=== PATIENT | female | born 1930 | race Caucasian/White ===

== ENCOUNTER 2016-09-20 08:59 | Outpatient (RCR) | payer MEDICARE ==
--- OUTSIDE RECORDS SUMMARY | 2016-06-28 09:57 | XMS REPORT | Continuity of Care Document ---
Author Author [facility] Organization [facility] Address Unknown Phone Unavailable Care Team Providers Care Senior Mainframe Programmer Analyst Name Role Phone JACOBY SCHWAB MD PCP Insurance Providers Payer Name Policy Number Subscriber Name Relationship [employer] Medicare [id number] Margaret Morgan Self / Same As Patient Blue Cross [facility] Supp [id number] Margaret Morgan Self / Same As Patient Problems No known problems or medical conditions. Medications No known medications. Social History Social History Problem Response Recorded Date/Time Recent Foreign Travel N [place] 10/27/2014 9:38am Hospital Discharge Instructions No hospital discharge instructions. Plan of Care No plan of care. Functional Status No functional status results. Allergies, Adverse Reactions, Alerts Allergen Type Severity Reaction Status Last Updated Penicillins ([id number]) Allergy Unknown Active 10/06/08 Sulfa (Sulfonamide Antibiotics) ([id number]) Allergy Unknown Active 06/06 Clindamycin Allergy Unknown Active 10/06/08 Immunizations No immunization records. Vital Signs Acute Vital Signs Vital Response Date/Time Height 5 ft 1 in Weight 150 lb Body Mass Index 28.3 kg/m^2 Results Laboratory Results Test Name Result Units Flags Reference Collection Date/Time Result Date/ Time Comments White Blood Count 6.4 10^3/uL 4.3-11.0 10/27/2014 9:50am 10/27/2014 9: 55am Red Blood Count 4.42 10^6/uL 4.35-5.85 10/27/2014 9:50am 10/27/2014 9: 55am Hemoglobin 13.3 G/DL 11.5-16.0 10/27/2014 9:50am 10/27/2014 9:55am Hematocrit 40 % 35-52 10/27/2014 9:50am 10/27/2014 9:55am Mean Corpuscular Volume 90 FL 80-99 10/27/2014 9:50am 10/27/2014 9: 55am Mean Corpuscular Hemoglobin 30 PG 25-34 10/27/2014 9:50am 10/27/2014 9: 55am Mean Corpuscular Hemoglobin Concent 33 G/DL 32-36 10/27/2014 9:50am 05/2015 9:55am Red Cell Distribution Width 16.4 % H 10.0-14.5 10/27/2014 9:50am 2014 9:55am Platelet Count 233 10^3/uL 130-400 10/27/2014 9:50am 10/27/2014 9:55am Mean Platelet Volume 12.3 FL H 7.4-10.4 10/27/2014 9:50am 10/27/2014 9: 55am Neutrophils (%) (Auto) 52 % 42-75 10/27/2014 9:50am 10/27/2014 9:55am Lymphocytes (%) (Auto) 32 % 12-44 10/27/2014 9:50am 10/27/2014 9:55am Monocytes (%) (Auto) 12 % 0-12 10/27/2014 9:50am 10/27/2014 9:55am Eosinophils (%) (Auto) 3 % 0-10 10/27/2014 9:50am 10/27/2014 9:55am Basophils (%) (Auto) 2 % 0-10 10/27/2014 9:50am 10/27/2014 9:55am Neutrophils # (Auto) 3.3 X 10^3 1.8-7.8 10/27/2014 9:50am 10/27/2014 9: 55am Lymphocytes # (Auto) 2.0 X 10^3 1.0-4.0 10/27/2014 9:50am 10/27/2014 9: 55am Monocytes # (Auto) 0.8 X 10^3 0.0-1.0 10/27/2014 9:50am 10/27/2014 9: 55am Eosinophils # (Auto) 0.2 10^3/uL 0.0-0.3 10/27/2014 9:50am 10/27/2014 9 :55am Basophils # (Auto) 0.1 10^3/uL 0.0-0.1 10/27/2014 9:50am 10/27/2014 9: 55am Sodium Level 141 MMOL/L 135-145 10/27/2014 9:45am 10/27/2014 10:23am Potassium Level 4.1 MMOL/L 3.6-5.0 10/27/2014 9:45am 10/27/2014 10: 23am Chloride Level 111 MMOL/L H 98-107 10/27/2014 9:45am 10/27/2014 10:23am Carbon Dioxide Level 20 MMOL/L L 21-32 10/27/2014 9:45am 10/27/2014 10: 23am Blood Urea Nitrogen 19 MG/DL H 7-18 10/27/2014 9:45am 10/27/2014 10:23am Creatinine 0.81 MG/DL 0.60-1.30 10/27/2014 9:45am 10/27/2014 10:23am BUN/Creatinine Ratio 23 10/27/2014 9:45am 10/27/2014 10:23am Estimat Glomerular Filtration Rate > 60 10/27/2014 9:45am 2014 10:23am GFR INTERPRETIVE DATA UNITS FOR ESTIMATED GFR (eGFR): mL/min/1.73 M2 REFERENCE RANGE FOR ESTIMATED GFR (eGFR) eGFR NORMAL eGFR >60 MODERATELY DECREASED eGFR 30-59 SEVERLY DECREASED eGFR 15-29 KIDNEY FAILURE <15 (OR DIALYSIS) Glucose Level 94 MG/DL 70-105 10/27/2014 9:45am 10/27/2014 10:23am Calcium Level 9.7 MG/DL 8.5-10.1 10/27/2014 9:45am 10/27/2014 10:23am Total Bilirubin 1.2 MG/DL H 0.1-1.0 10/27/2014 9:45am 10/27/2014 10:23am Alkaline Phosphatase 85 U/L 40-136 10/27/2014 9:45am 10/27/2014 10: 23am Aspartate Amino Transf (AST/SGOT) 28 U/L 5-34 10/27/2014 9:45am 2014 10:23am Alanine Aminotransferase (ALT/SGPT) 18 U/L 0-55 10/27/2014 9:45am 10/27 10:23am Lactate Dehydrogenase 237 U/L H 125-220 10/27/2014 9:45am 10/27/2014 10: 23am Total Protein 6.7 G/DL 6.4-8.2 10/27/2014 9:45am 10/27/2014 10:23am Albumin 4.2 G/DL 3.2-4.5 10/27/2014 9:45am 10/27/2014 10:23am Immunoglobulin G 580 L MG/DL 672-1680 10/27/2014 9:45am 2014 6: 29am Immunoglobulin A 29 L MG/DL 71-263 10/27/2014 9:45am 2014 6: 29am Immunoglobulin M 15 L MG/DL 47-209 10/27/2014 9:45am 2014 6: 29am Procedures No known history of procedures. Encounters Encounter Location Date/Time Discharged Recurring Via [facility] 12/02/14 9:23am
[2016-06-28 10:13] LABS: BASOPHILS # (AUTO) 0.1 10^3/uL (0.0-0.1); BASOPHILS % (AUTO) 1 % (0-10); EOSINOPHILS # (AUTO) 0.3 10^3/uL (0.0-0.3); EOSINOPHILS % (AUTO) 4 % (0-10); LYMPHOCYTES # (AUTO) 2.9 X 10^3 (1.0-4.0); LYMPHOCYTES % (AUTO) 36 % (12-44); MEAN CORPUSCULAR HEMOGLOBIN 30 PG (25-34); MEAN CORPUSCULAR HGB CONC 33 G/DL (32-36); MEAN CORPUSCULAR VOLUME 89 FL (80-99); MEAN PLATELET VOLUME 12.5 FL (7.4-10.4); MONOCYTES # (AUTO) 1.3 X 10^3 (0.0-1.0); MONOCYTES % (AUTO) 17 % (0-12); NEUTROPHILS # (AUTO) 3.4 X 10^3 (1.8-7.8); NEUTROPHILS % (AUTO) 43 % (42-75); PLATELET COUNT 266 10^3/uL (130-400); RED BLOOD COUNT 4.35 10^6/uL (4.35-5.85); RED CELL DISTRIBUTION WIDTH 16.7 % (10.0-14.5)
[2016-06-28 10:41] LABS: ALANINE AMINOTRANSFERASE 24 U/L (0-55); ALBUMIN 4.2 G/DL (3.2-4.5); ANION GAP 12 MMOL/L (5-14); ASPARTATE AMINO TRANSFERASE 31 U/L (5-34); BILIRUBIN,TOTAL 1.1 MG/DL (0.1-1.0); BLOOD UREA NITROGEN 19 MG/DL (7-18); BUN/CREATININE RATIO 24; CALCIUM 9.5 MG/DL (8.5-10.1); CARBON DIOXIDE 18 MMOL/L (21-32); CHLORIDE 113 MMOL/L (98-107); CREATININE SERUM 0.78 MG/DL (0.60-1.30); GFR ESTIMATED > 60; GLUCOSE 79 MG/DL (70-105); LACTATE DEHYDROGENASE 231 U/L (125-220); SODIUM 143 MMOL/L (135-145); TOTAL PROTEIN 6.3 G/DL (6.4-8.2)
[2016-06-29 03:38] LABS: IMMUNOGLOBULIN IGA 21 mg/dL (71-263); IMMUNOGLOBULIN IGG 587 mg/dL (672-1680)
[2016-06-29 08:11] LABS: IMMUNOGLOBULIN IGM 15 mg/dL (47-209)
[2016-07-26 09:33] LABS: BASOPHILS # (AUTO) 0.1 10^3/uL (0.0-0.1); BASOPHILS % (AUTO) 1 % (0-10); EOSINOPHILS # (AUTO) 0.4 10^3/uL (0.0-0.3); EOSINOPHILS % (AUTO) 6 % (0-10); LYMPHOCYTES # (AUTO) 2.4 X 10^3 (1.0-4.0); LYMPHOCYTES % (AUTO) 31 % (12-44); MEAN CORPUSCULAR HEMOGLOBIN 30 PG (25-34); MEAN CORPUSCULAR HGB CONC 34 G/DL (32-36); MEAN CORPUSCULAR VOLUME 89 FL (80-99); MEAN PLATELET VOLUME 11.8 FL (7.4-10.4); MONOCYTES # (AUTO) 1.4 X 10^3 (0.0-1.0); MONOCYTES % (AUTO) 18 % (0-12); NEUTROPHILS # (AUTO) 3.4 X 10^3 (1.8-7.8); NEUTROPHILS % (AUTO) 45 % (42-75); PLATELET COUNT 259 10^3/uL (130-400); RED BLOOD COUNT 4.58 10^6/uL (4.35-5.85); RED CELL DISTRIBUTION WIDTH 16.6 % (10.0-14.5); WHITE BLOOD COUNT 7.6 10^3/uL (4.3-11.0)
[2016-07-26 09:59] LABS: ALANINE AMINOTRANSFERASE 31 U/L (0-55); ALBUMIN 4.5 G/DL (3.2-4.5); ANION GAP 10 MMOL/L (5-14); ASPARTATE AMINO TRANSFERASE 37 U/L (5-34); BILIRUBIN,TOTAL 1.1 MG/DL (0.1-1.0); BLOOD UREA NITROGEN 18 MG/DL (7-18); BUN/CREATININE RATIO 22; CALCIUM 9.4 MG/DL (8.5-10.1); CARBON DIOXIDE 21 MMOL/L (21-32); CHLORIDE 112 MMOL/L (98-107); CREATININE SERUM 0.83 MG/DL (0.60-1.30); GFR ESTIMATED > 60; GLUCOSE 69 MG/DL (70-105); POTASSIUM 3.9 MMOL/L (3.6-5.0); SODIUM 143 MMOL/L (135-145); TOTAL PROTEIN 6.6 G/DL (6.4-8.2)
[2016-07-27 06:06] LABS: IMMUNOGLOBULIN IGA 22 mg/dL (71-263); IMMUNOGLOBULIN IGG 517 mg/dL (672-1680)
[2016-07-27 08:37] LABS: IMMUNOGLOBULIN IGM 13 mg/dL (47-209)
[~2016-09-20] VITALS: Ht 154.9 cm; Wt 68.0 kg
[~2016-09-20 08:59] MED LIST: ACETAMINOPHEN 325 MG TABLET/CAPLET (TYLENOL) PO PRN; ACETAMINOPHEN 500 MG TAB (TYLENOL) CANCER CTR ONE; ACETAMINOPHEN 500 MG TAB (TYLENOL) PO SCH; IMMU GLOBULIN,GAMMA (IGG) 50 ML IV SCH; IMMUNE GLOBULIN,GAMMA (IGG) 200 ML IV SCH; NS (IVPB) 250 ML IV SCH; diphenhydrAMINE 25 MG TAB (BENADRYL) CANCER CENTER PO ONE; diphenhydrAMINE 25 MG TAB (BENADRYL) PO SCH; riTUXimab 500 MG, riTUXimab FOR IV INJ CONC 100 MG in NS (IVPB) CANCER CENTER ONLY 140 ML IV SCH
[2016-09-20 09:35] LABS: BASOPHILS # (AUTO) 0.1 10^3/uL (0.0-0.1); BASOPHILS % (AUTO) 1 % (0-10); EOSINOPHILS # (AUTO) 0.3 10^3/uL (0.0-0.3); EOSINOPHILS % (AUTO) 3 % (0-10); LYMPHOCYTES # (AUTO) 2.5 X 10^3 (1.0-4.0); LYMPHOCYTES % (AUTO) 23 % (12-44); MEAN CORPUSCULAR HEMOGLOBIN 30 PG (25-34); MEAN CORPUSCULAR HGB CONC 33 G/DL (32-36); MEAN CORPUSCULAR VOLUME 90 FL (80-99); MEAN PLATELET VOLUME 12.1 FL (7.4-10.4); MONOCYTES # (AUTO) 1.2 X 10^3 (0.0-1.0); MONOCYTES % (AUTO) 11 % (0-12); NEUTROPHILS # (AUTO) 6.7 X 10^3 (1.8-7.8); NEUTROPHILS % (AUTO) 62 % (42-75); PLATELET COUNT 263 10^3/uL (130-400); RED BLOOD COUNT 4.37 10^6/uL (4.35-5.85); RED CELL DISTRIBUTION WIDTH 16.8 % (10.0-14.5); WHITE BLOOD COUNT 10.8 10^3/uL (4.3-11.0)
[2016-09-20 09:59] LABS: ALANINE AMINOTRANSFERASE 25 U/L (0-55); ALBUMIN 4.3 G/DL (3.2-4.5); ANION GAP 11 MMOL/L (5-14); ASPARTATE AMINO TRANSFERASE 31 U/L (5-34); BLOOD UREA NITROGEN 19 MG/DL (7-18); BUN/CREATININE RATIO 23; CALCIUM 9.2 MG/DL (8.5-10.1); CARBON DIOXIDE 20 MMOL/L (21-32); CHLORIDE 113 MMOL/L (98-107); CREATININE SERUM 0.82 MG/DL (0.60-1.30); GFR ESTIMATED > 60; GLUCOSE 79 MG/DL (70-105); POTASSIUM 3.8 MMOL/L (3.6-5.0); SODIUM 144 MMOL/L (135-145); TOTAL PROTEIN 6.4 G/DL (6.4-8.2)
[2016-09-20] MEDS ORDERED: diphenhydrAMINE 25 MG TAB (BENADRYL) CANCER CENTER PO ONE (10:00)
[2016-09-20] MEDS ORDERED: ACETAMINOPHEN 500 MG TAB (TYLENOL) CANCER CTR ONE (10:00)
[2016-09-21 03:29] LABS: IMMUNOGLOBULIN IGA 24 mg/dL (71-263); IMMUNOGLOBULIN IGG 615 mg/dL (672-1680)
[2016-09-21 08:03] LABS: IMMUNOGLOBULIN IGM 22 mg/dL (47-209)
== END 2016-09-26 | disposition home or self-care (01) ==
LOC: ONC 08:59
PROVIDERS: ATTEND Internal Medicine Hematology & Oncology
DX: Z51.11 Encounter for antineoplastic chemotherapy (principal); C91.10 Chronic lymphocytic leukemia of B-cell type not having achieved remission; D80.1 Nonfamilial hypogammaglobulinemia; Z79.899 Other long term (current) drug therapy
CPT/HCPCS: 36415; 80053; 82784; 83615; 85025; 96365; 96366; 96413; 99213

== ENCOUNTER 2017-01-10 09:14 | Outpatient (RCR) | payer MEDICARE ==
--- OUTSIDE RECORDS SUMMARY | 2016-10-18 08:46 | XMS REPORT | Continuity of Care Document ---
Author Author [facility] Organization [facility] Address Unknown Phone Unavailable Care Team Providers Care Child Care Nurse Name Role Phone JACOBY SCHWAB MD PCP Insurance Providers Payer Name Policy Number Subscriber Name Relationship Wps Medicare [id number] Margaret Morgan Self / Same As Patient Blue Cross [facility] Supp [id number] Margaret Morgan Self / Same As Patient [...] Type Severity Reaction Status Last Updated Penicillins ([id number]) Allergy Unknown Active 10/06/08 Sulfa (Sulfonamide Antibiotics) ([id number]) Allergy Unknown Active 06/06 Clindamycin Allergy Unknown [...] Encounters Encounter Location Date/Time Discharged Recurring Via [facility] 12/02/14 9:23am
[2016-10-18 09:00] LABS: BASOPHILS # (AUTO) 0.1 10^3/uL (0.0-0.1); BASOPHILS % (AUTO) 1 % (0-10); EOSINOPHILS # (AUTO) 0.3 10^3/uL (0.0-0.3); EOSINOPHILS % (AUTO) 4 % (0-10); LYMPHOCYTES # (AUTO) 2.1 X 10^3 (1.0-4.0); LYMPHOCYTES % (AUTO) 32 % (12-44); MEAN CORPUSCULAR HEMOGLOBIN 30 PG (25-34); MEAN CORPUSCULAR HGB CONC 34 G/DL (32-36); MEAN CORPUSCULAR VOLUME 89 FL (80-99); MEAN PLATELET VOLUME 12.4 FL (7.4-10.4); MONOCYTES % (AUTO) 16 % (0-12); NEUTROPHILS # (AUTO) 3.1 X 10^3 (1.8-7.8); NEUTROPHILS % (AUTO) 47 % (42-75); PLATELET COUNT 247 10^3/uL (130-400); RED BLOOD COUNT 4.44 10^6/uL (4.35-5.85); RED CELL DISTRIBUTION WIDTH 16.5 % (10.0-14.5); WHITE BLOOD COUNT 6.6 10^3/uL (4.3-11.0)
[2016-10-18 09:39] LABS: ALANINE AMINOTRANSFERASE 19 U/L (0-55); ALBUMIN 4.2 G/DL (3.2-4.5); ANION GAP 8 MMOL/L (5-14); ASPARTATE AMINO TRANSFERASE 31 U/L (5-34); BILIRUBIN,TOTAL 0.9 MG/DL (0.1-1.0); BLOOD UREA NITROGEN 19 MG/DL (7-18); BUN/CREATININE RATIO 23; CALCIUM 9.4 MG/DL (8.5-10.1); CARBON DIOXIDE 23 MMOL/L (21-32); CHLORIDE 112 MMOL/L (98-107); CREATININE SERUM 0.83 MG/DL (0.60-1.30); GFR ESTIMATED > 60; GLUCOSE 77 MG/DL (70-105); POTASSIUM 3.9 MMOL/L (3.6-5.0); SODIUM 143 MMOL/L (135-145); TOTAL PROTEIN 6.7 G/DL (6.4-8.2)
[2016-10-19 06:59] LABS: IMMUNOGLOBULIN IGA 21 mg/dL (71-263); IMMUNOGLOBULIN IGG 802 mg/dL (672-1680)
[2016-10-19 07:59] LABS: IMMUNOGLOBULIN IGM 12 mg/dL (47-209)
[2016-11-15 09:24] LABS: BASOPHILS # (AUTO) 0.1 10^3/uL (0.0-0.1); BASOPHILS % (AUTO) 2 % (0-10); EOSINOPHILS # (AUTO) 0.4 10^3/uL (0.0-0.3); EOSINOPHILS % (AUTO) 6 % (0-10); LYMPHOCYTES # (AUTO) 2.3 X 10^3 (1.0-4.0); LYMPHOCYTES % (AUTO) 33 % (12-44); MEAN CORPUSCULAR HEMOGLOBIN 30 PG (25-34); MEAN CORPUSCULAR HGB CONC 34 G/DL (32-36); MEAN CORPUSCULAR VOLUME 89 FL (80-99); MEAN PLATELET VOLUME 12.2 FL (7.4-10.4); MONOCYTES % (AUTO) 14 % (0-12); NEUTROPHILS # (AUTO) 3.2 X 10^3 (1.8-7.8); NEUTROPHILS % (AUTO) 46 % (42-75); PLATELET COUNT 247 10^3/uL (130-400); RED BLOOD COUNT 4.53 10^6/uL (4.35-5.85); RED CELL DISTRIBUTION WIDTH 16.8 % (10.0-14.5); WHITE BLOOD COUNT 6.9 10^3/uL (4.3-11.0)
[2016-11-15 09:57] LABS: ALANINE AMINOTRANSFERASE 25 U/L (0-55); ALBUMIN 4.4 G/DL (3.2-4.5); ANION GAP 11 MMOL/L (5-14); ASPARTATE AMINO TRANSFERASE 33 U/L (5-34); BILIRUBIN,TOTAL 1.1 MG/DL (0.1-1.0); BLOOD UREA NITROGEN 17 MG/DL (7-18); BUN/CREATININE RATIO 20; CALCIUM 9.5 MG/DL (8.5-10.1); CARBON DIOXIDE 21 MMOL/L (21-32); CHLORIDE 112 MMOL/L (98-107); CREATININE SERUM 0.83 MG/DL (0.60-1.30); GFR ESTIMATED > 60; GLUCOSE 73 MG/DL (70-105); SODIUM 144 MMOL/L (135-145); TOTAL PROTEIN 6.8 G/DL (6.4-8.2)
[2016-11-16 06:01] LABS: IMMUNOGLOBULIN IGA 23 mg/dL (71-263); IMMUNOGLOBULIN IGG 734 mg/dL (672-1680)
[2016-11-16 07:47] LABS: IMMUNOGLOBULIN IGM 12 mg/dL (47-209)
[~2017-01-10] VITALS: Ht 154.9 cm; Wt 67.6 kg
[~2017-01-10 09:14] MED LIST changes: -ACETAMINOPHEN 325 MG TABLET/CAPLET (TYLENOL) PO PRN
[2017-01-10 09:48] LABS: BASOPHILS # (AUTO) 0.1 10^3/uL (0.0-0.1); BASOPHILS % (AUTO) 1 % (0-10); EOSINOPHILS # (AUTO) 0.4 10^3/uL (0.0-0.3); EOSINOPHILS % (AUTO) 5 % (0-10); LYMPHOCYTES # (AUTO) 2.9 X 10^3 (1.0-4.0); LYMPHOCYTES % (AUTO) 36 % (12-44); MEAN CORPUSCULAR HEMOGLOBIN 30 PG (25-34); MEAN CORPUSCULAR HGB CONC 33 G/DL (32-36); MEAN CORPUSCULAR VOLUME 91 FL (80-99); MEAN PLATELET VOLUME 12.2 FL (7.4-10.4); MONOCYTES # (AUTO) 1.1 X 10^3 (0.0-1.0); MONOCYTES % (AUTO) 14 % (0-12); NEUTROPHILS # (AUTO) 3.6 X 10^3 (1.8-7.8); NEUTROPHILS % (AUTO) 45 % (42-75); PLATELET COUNT 243 10^3/uL (130-400); RED CELL DISTRIBUTION WIDTH 16.6 % (10.0-14.5); WHITE BLOOD COUNT 8.1 10^3/uL (4.3-11.0)
[2017-01-10 10:10] LABS: ALANINE AMINOTRANSFERASE 25 U/L (0-55); ANION GAP 9 MMOL/L (5-14); ASPARTATE AMINO TRANSFERASE 33 U/L (5-34); BILIRUBIN,TOTAL 1.1 MG/DL (0.1-1.0); BLOOD UREA NITROGEN 19 MG/DL (7-18); BUN/CREATININE RATIO 24; CALCIUM 9.3 MG/DL (8.5-10.1); CARBON DIOXIDE 22 MMOL/L (21-32); CHLORIDE 111 MMOL/L (98-107); CREATININE SERUM 0.79 MG/DL (0.60-1.30); GFR ESTIMATED > 60; GLUCOSE 79 MG/DL (70-105); POTASSIUM 3.7 MMOL/L (3.6-5.0); SODIUM 142 MMOL/L (135-145); TOTAL PROTEIN 6.3 G/DL (6.4-8.2)
[2017-01-10] MEDS ORDERED: ACETAMINOPHEN 500 MG TAB (TYLENOL) CANCER CTR ONE (10:13)
[2017-01-10] MEDS ORDERED: diphenhydrAMINE 25 MG TAB (BENADRYL) CANCER CENTER PO ONE (10:13)
[2017-01-11 05:23] LABS: IMMUNOGLOBULIN IGA 22 mg/dL (71-263); IMMUNOGLOBULIN IGG 696 mg/dL (672-1680)
[2017-01-11 07:26] LABS: IMMUNOGLOBULIN IGM 14 mg/dL (47-209)
== END 2017-01-16 | disposition home or self-care (01) ==
LOC: ONC 09:14
PROVIDERS: ATTEND Internal Medicine Hematology & Oncology
DX: Z51.11 Encounter for antineoplastic chemotherapy (principal); C91.10 Chronic lymphocytic leukemia of B-cell type not having achieved remission; D80.1 Nonfamilial hypogammaglobulinemia; Z79.899 Other long term (current) drug therapy
CPT/HCPCS: 36415; 80053; 82784; 85025; 96365; 96366; 96413; 99213

== ENCOUNTER 2017-04-19 07:14 | Inpatient (IN) | payer MEDICARE ==
[~2017-04-19] VITALS: Ht 157.5 cm; Wt 68.0 kg
[2017-04-19] MEDS ORDERED: LACTATED RINGERS 1,000 ML IV ONE (07:24)
[2017-04-19 07:44] LABS: BASOPHILS # (AUTO) 0.1 10^3/uL (0.0-0.1); BASOPHILS % (AUTO) 2 % (0-10); EOSINOPHILS # (AUTO) 0.2 10^3/uL (0.0-0.3); EOSINOPHILS % (AUTO) 3 % (0-10); LYMPHOCYTES # (AUTO) 2.1 X 10^3 (1.0-4.0); LYMPHOCYTES % (AUTO) 32 % (12-44); MEAN CORPUSCULAR HEMOGLOBIN 30 PG (25-34); MEAN CORPUSCULAR HGB CONC 34 G/DL (32-36); MEAN CORPUSCULAR VOLUME 90 FL (80-99); MEAN PLATELET VOLUME 12.3 FL (7.4-10.4); MONOCYTES # (AUTO) 0.8 X 10^3 (0.0-1.0); MONOCYTES % (AUTO) 12 % (0-12); NEUTROPHILS # (AUTO) 3.3 X 10^3 (1.8-7.8); NEUTROPHILS % (AUTO) 51 % (42-75); PLATELET COUNT 249 10^3/uL (130-400); RED BLOOD COUNT 4.36 10^6/uL (4.35-5.85); RED CELL DISTRIBUTION WIDTH 15.9 % (10.0-14.5); WHITE BLOOD COUNT 6.5 10^3/uL (4.3-11.0)
[2017-04-19] MEDS ORDERED: ONDANSETRON 4 MG/2 ML (SDV) Z0FRAN IVP ONE (07:45)
[2017-04-19] MEDS ORDERED: FAMOTIDINE 20MG/2ML IV (PEPCID) IVP ONE (07:45)
[2017-04-19 08:04] LABS: ALANINE AMINOTRANSFERASE 25 U/L (0-55); ALBUMIN 4.1 GM/DL (3.2-4.5); ANION GAP 12 MMOL/L (5-14); ASPARTATE AMINO TRANSFERASE 32 U/L (5-34); BILIRUBIN,TOTAL 1.4 MG/DL (0.1-1.0); BLOOD UREA NITROGEN 18 MG/DL (7-18); BUN/CREATININE RATIO 22; CALCIUM 9.5 MG/DL (8.5-10.1); CARBON DIOXIDE 21 MMOL/L (21-32); CHLORIDE 110 MMOL/L (98-107); CREATININE SERUM 0.81 MG/DL (0.60-1.30); GFR ESTIMATED > 60; GLUCOSE 110 MG/DL (70-105); MAGNESIUM 1.9 MG/DL (1.8-2.4); POTASSIUM 3.5 MMOL/L (3.6-5.0); SODIUM 143 MMOL/L (135-145); TOTAL PROTEIN 6.5 GM/DL (6.4-8.2)
[2017-04-19] MEDS ORDERED: FLUT16SP22 NS (08:04)
[2017-04-19 08:11] LABS: BILIRUBIN,URINE NEGATIVE (NEGATIVE); KETONES,URINE NEGATIVE (NEGATIVE); LEUKOCYTE ESTERASE ,URINE 3+ (NEGATIVE); NITRITE,URINE POSITIVE (NEGATIVE); PH,URINE 7 (5-9); PROTEIN,URINE NEGATIVE (NEGATIVE); UROBILINOGEN,URINE NORMAL (NORMAL)
[2017-04-19 08:19] LABS: WBC,URINE >100 /HPF
[2017-04-19] MEDS ORDERED: PROMETHAZINE INJ 25 MG/ML (PHENERGAN) AMP IVP ONE (08:30)
--- NOTE | 2017-04-19 08:32 | Diagnostic Imaging Report ---
Two views of the right tibia and fibula. INDICATION: Fall. FINDINGS: No fracture, dislocation or radiopaque foreign body. The proximal and distal joints appear grossly unremarkable. IMPRESSION: Unremarkable exam. Dictated by: Dictated on workstation # [id number]
--- NOTE | 2017-04-19 08:35 | Diagnostic Imaging Report ---
Portable upright radiograph of the chest. INDICATION: Dizziness. FINDINGS: The heart size is mildly prominent. No focal infiltrate. No effusion or pneumothorax. The mediastinum and sofia appear unremarkable. Surgical clips in the upper abdomen seen. IMPRESSION: Borderline cardiac size. Dictated by: Dictated on workstation # [id number]
[2017-04-19] MEDS ORDERED: LEVOFLOXACIN 500 MG/100 ML IV 100 ML IV ONE (08:45)
--- NOTE | 2017-04-19 08:51 | ED General ---
General Chief Complaint: Dizziness/Syncope Stated Complaint: DIZZY,LIGHT-HEADED,NAUSEA,DIARRHEA Nursing Triage Note: ARRIVED VIA WC FROM HOME. STATES SHE STARTED TO BECOME DIZZY LAST NOC BEFORE BED AND WOKE UP SO THIS MORNING EVEN MORE SO. STATES SHE FELL AT HOME. ALSO HAVING UNCONTROLABLE DIARRHEA. PT ARRIVED IN SOILED. Nursing Sepsis Screen: No Definite Risk Source of Information: Patient, Old Records Exam Limitations: No Limitations History of Present Illness Time Seen by Provider: 07:16 Initial Comments This pleasant 86-year-old woman presents to the emergency room with complaints of dizziness that started last night when she went to bed. She elaborates that the dizziness is a sensation of lightheadedness and disequilibrium. This morning she developed nausea, diarrhea, and weakness along with her dizziness. She fell and injured her right lower leg. She denies any head or neck injury. She's also been experiencing cough since the beginning of the allergy season. She presently is being treated for lymphoma with regular infusions of Rituxan and IVIG. Dr. Cadet is her oncologist and Dr. Lee is her primary care provider. She has some minor pain to the right upper lateral lower leg where there is a skin tear and bruise. She denies any other pain. She is afebrile. Allergies and Home Medications Allergies Coded Allergies: Clindamycin (Verified Allergy, Unknown, 10/06/08) Penicillins (Verified Allergy, Unknown, 10/06/08) Sulfa (Sulfonamide Antibiotics) (Verified Allergy, Unknown, 10/06/08) Home Medications Fluticasone Propionate 16 Gm [place].susp, #16 (Reported) Constitutional: see HPI EENTM: no symptoms reported Respiratory: see HPI, cough Cardiovascular: no symptoms reported Gastrointestinal: see HPI, diarrhea, nausea Genitourinary: no symptoms reported : No Musculoskeletal: see HPI Skin: see HPI Psychiatric/Neurological: See HPI Hematologic/Lymphatic: No Symptoms Reported Immunological/Allergic: see HPI Past Cqmxffn-Bbdqgh-Pwprce Hx Patient Social History Alcohol Use: Denies Use Recreational Drug Use: No 2nd Hand Smoke Exposure: No Recent Foreign Travel: No Contact w/Someone Who Travel: No Recent Infectious Disease Expo: No Recent Hopitalizations: No Seasonal Allergies Seasonal Allergies: Yes Surgeries HX Surgeries: Yes (splenectomy) Surgeries: Adenoidectomy, Appendectomy, Gallbladder, Hysterectomy, Tonsillectomy Respiratory Hx Respiratory Disorders: No Cardiovascular Hx Cardiac Disorders: No Neurological Hx Neurological Disorders: Yes (history of shingles) Reproductive System : No Genitourinary Hx Genitourinary Disorders: Yes (recurrent urinary tract infections) Gastrointestinal Hx Gastrointestinal Disorders: No Musculoskeletal Hx Musculoskeletal Disorders: No Musculoskeletal Disorders: Arthritis Endocrine Hx Endocrine Disorders: No HEENT HX ENT Disorders: Yes (sinusitis) Cancer Hx Cancer: Yes Cancer: Lymphoma Psychosocial Hx Psychiatric Problems: No Integumentary HX Skin/Integumentary Disorder: No Physical Exam Vital Signs Vital Sign - Last 12Hours 04/19/17 07:20 Temp 98.2 Pulse 72 Resp 16 B/P (MAP) 167/95 Pulse Ox 97 O2 Delivery Room Air Capillary Refill : Less Than 3 Seconds General Appearance: No Apparent Distress, WD/WN HEENT: PERRL/EOMI, Normal ENT Inspection, Pharynx Normal Neck: Normal Inspection Respiratory: Lungs Clear, Normal Breath Sounds, No Accessory Muscle Use, No Respiratory Distress Cardiovascular: Regular Rate, Rhythm, No Edema, No Murmur Gastrointestinal: Normal Bowel Sounds, Non Tender, Soft Extremity: No Pedal Edema, Other (skin tear of the proximal right lower leg on the lateral aspect with swelling, tenderness and ecchymosis noted.) Neurologic/Psychiatric: Alert, Oriented x3, No Motor/Sensory Deficits, Normal Mood/Affect, vp strategic planning II-XII Norm as Tested Skin: Normal Color, Warm/Dry, Ecchymosis Progress/Results/Core Measures Results/Orders Lab Results Laboratory Tests Test 04/19/17 07:35 04/19/17 07:50 Range/Units White Blood Count 6.5 4.3-11.0 10^3/uL Red Blood Count 4.36 4.35-5.85 10^6/uL Hemoglobin 13.2 11.5-16.0 G/DL Hematocrit 39 35-52 % Mean Corpuscular Volume 90 80-99 FL Mean Corpuscular Hemoglobin 30 25-34 PG Mean Corpuscular Hemoglobin Concent 34 32-36 G/DL Red Cell Distribution Width 15.9 H 10.0-14.5 % Platelet Count 249 130-400 10^3/uL Mean Platelet Volume 12.3 H 7.4-10.4 FL Neutrophils (%) (Auto) 51 42-75 % Lymphocytes (%) (Auto) 32 12-44 % Monocytes (%) (Auto) 12 0-12 % Eosinophils (%) (Auto) 3 0-10 % Basophils (%) (Auto) 2 0-10 % Neutrophils # (Auto) 3.3 1.8-7.8 X 10^3 Lymphocytes # (Auto) 2.1 1.0-4.0 X 10^3 Monocytes # (Auto) 0.8 0.0-1.0 X 10^3 Eosinophils # (Auto) 0.2 0.0-0.3 10^3/uL Basophils # (Auto) 0.1 0.0-0.1 10^3/uL Sodium Level 143 135-145 MMOL/L Potassium Level 3.5 L 3.6-5.0 MMOL/L Chloride Level 110 H 98-107 MMOL/L Carbon Dioxide Level 21 21-32 MMOL/L Anion Gap 12 5-14 MMOL/L Blood Urea Nitrogen 18 7-18 MG/DL Creatinine 0.81 0.60-1.30 MG/DL Estimat Glomerular Filtration Rate > 60 BUN/Creatinine Ratio 22 Glucose Level 110 H 70-105 MG/DL Calcium Level 9.5 8.5-10.1 MG/DL Magnesium Level 1.9 1.8-2.4 MG/DL Total Bilirubin 1.4 H 0.1-1.0 MG/DL Aspartate Amino Transf (AST/SGOT) 32 5-34 U/L Alanine Aminotransferase (ALT/SGPT) 25 0-55 U/L Alkaline Phosphatase 96 40-136 U/L Troponin I < 0.30 <0.30 NG/ML Total Protein 6.5 6.4-8.2 GM/DL Albumin 4.1 3.2-4.5 GM/DL Urine Color YELLOW Urine Clarity SLIGHTLY CLOUDY Urine pH 7 5-9 Urine Specific [place] 1.010 L 1.016-1.022 Urine Protein NEGATIVE NEGATIVE Urine Glucose (UA) NEGATIVE NEGATIVE Urine Ketones NEGATIVE NEGATIVE Urine Nitrite POSITIVE H NEGATIVE Urine Bilirubin NEGATIVE NEGATIVE Urine Urobilinogen NORMAL NORMAL MG/DL Urine Leukocyte Esterase 3+ H NEGATIVE Urine RBC (Auto) 1+ H NEGATIVE Urine RBC NONE /HPF Urine WBC >100 H /HPF Urine Crystals NONE /LPF Urine Bacteria MODERATE H /HPF Urine Casts NONE /LPF Urine Mucus NEGATIVE /LPF Urine Culture Indicated YES My Orders Orders - CHYNA HEROZG MD Saline Lock/Iv-Start (04/19/17 07:19) Cbc With Automated Diff (04/19/17 07:19) Comprehensive Metabolic Panel (04/19/17 07:19) Magnesium (04/19/17 07:19) Ua Culture If Indicated (04/19/17 07:19) Lactated Ringers (Lr 1000 Ml Iv Solution (04/19/17 07:24) Ondansetron Injection (Zofran Injectio (04/19/17 07:45) Famotidine Injection (Pepcid Injection) (04/19/17 07:45) Chest 1 View, Ap/Pa Only (04/19/17 07:36) Tibia/Fibula, Right, 2 Views (04/19/17 07:37) Stool Culture (04/19/17 07:50) Fecal Wbc (04/19/17 07:50) C Difficile Ag + Toxin A/B. (04/19/17 07:50) Ekg Tracing (04/19/17 07:56) Monitor-Rhythm Ecg Trace Only (04/19/17 07:56) Troponin I (04/19/17 07:56) Urine Culture (04/19/17 07:50) Promethazine Injection (Phenergan Injec (04/19/17 08:30) Levofloxacin 500 Mg/100 Ml Iv (Levaquin (04/19/17 08:45) Medications Given in ED Current Medications Medications Dose Ordered Sig/Hema Route Start Time Stop Time Status Last Admin Dose Admin Famotidine 20 mg ONCE ONCE IVP 04/19/17 07:45 04/19/17 07:46 DC 04/19/17 07:42 20 MG Lactated Ringer's 1,000 ml @ 0 mls/hr Q0M ONCE IV 04/19/17 07:24 04/19/17 07:25 DC 04/19/17 07:42 1,000 MLS/HR Ondansetron HCl 8 mg ONCE ONCE IVP 04/19/17 07:45 04/19/17 07:46 DC 04/19/17 07:42 8 MG Vital Signs/I&O Vital Sign - Last 12Hours 04/19/17 07:20 Temp 98.2 Pulse 72 Resp 16 B/P (MAP) 167/95 Pulse Ox 97 O2 Delivery Room Air Blood Pressure Mean: 119 Progress Note #1: Time: 07:35 Progress Note Patient was seen and examined. Zofran, Pepcid, and IV fluids ordered. Progress Note #2: Time: 07:[address] changes noted on court monitor. EKG obtained. Left bundle branch block identified. Patient reports no chest pain. No prior EKG is available. Troponin added to labs. Progress Note #3: Time: 08:30 Progress Note Patient is still little dizzy and nauseated. Phenergan 6.25 mg was ordered for patient to have if she requests it. Urinary tract infection was identified. Levaquin ordered. There was questionable right lower lung infiltrate but the radiologist's read this as negative. Progress Note #4: Time: 09:[address] Rodrigues was notified of the fall and that patient was cleared from a trauma perspective. Trauma consult is not necessary. ECG Initial ECG Impression Date: Apr 19, 2017 Initial ECG Impression Time: 08:11 Initial ECG Rate: 81 Initial ECG Rhythm: Normal Sinus Comment Sinus rhythm with no left bundle branch block. Diagnostic Imaging Diagonstic Imaging: Xray Plain Films/CT/US/NM/MRI: chest Comments Chest x-ray viewed by me and report reviewed. See report below: NAME: SALTY MORGAN [facility] REC#: [id number] PT STATUS: REG ER : 1930 PHYSICIAN: CHYNA HERZOG MD ADMIT DATE: 04/19/17/ER Signed Date of Exam: 04/19/17 CHEST 1 VIEW, AP/PA ONLY Portable upright radiograph of the chest. INDICATION: Dizziness. FINDINGS: The heart size is mildly prominent. No focal infiltrate. No effusion or pneumothorax. The mediastinum and sofia appear unremarkable. Surgical clips in the upper abdomen seen. IMPRESSION: Borderline cardiac size. Dictated by: Dictated on workstation # [id number] Dict: 04/19/17828 Trans: 04/19/17844 Interpreted by: MODESTO CARR MD Electronically signed by: MODESTO CARR MD 04/19/1745 Diagonstic Imaging: Xray Plain Films/CT/US/NM/MRI: leg Comments Right tib-fib viewed by me and report reviewed. See report below: NAME: SALTY MORGAN [facility] REC#: [id number] PT STATUS: REG ER : 1932 PHYSICIAN: CHYNA HERZOG MD ADMIT DATE: 04/19/17/ER Signed Date of Exam: 04/19/17 TIBIA/FIBULA, RIGHT, 2 VIEWS Two views of the right tibia and fibula. INDICATION: Fall. FINDINGS: No fracture, dislocation or radiopaque foreign body. The proximal and distal joints appear grossly unremarkable. IMPRESSION: Unremarkable exam. Dictated by: Dictated on workstation # [id number] Dict: 04/19/17824 Trans: 04/19/17844 Interpreted by: MODESTO CARR MD Electronically signed by: MODESTO CARR MD 04/19/1745 Departure Communication Time/Spoke to Admitting Phy: 08:50 Communication Case was reviewed with Dr. Puente who agrees with admission. She requested that I speak with care management regarding admission status. Care management advises inpatient status. Time/Spoke to Consulting Physi: 08:59 Communication/Consulting Case reviewed with Dr. Cadet who agrees with treatment with Levaquin. She will see the patient in consultation. Impression Impression: Primary Impression: Urinary tract infection Qualified Codes: N39.0 - Urinary tract infection, site not specified Additional Impressions: Lightheadedness Fall on same level Qualified Codes: W18.30XA - Fall on same level, unspecified, initial encounter Left bundle branch block Diarrhea Qualified Codes: R19.7 - Diarrhea, unspecified Nausea Lymphoma Qualified Codes: C85.90 - Non-Hodgkin lymphoma, unspecified, unspecified site Cough Skin tear Contusion Qualified Codes: S80.11XA - Contusion of right lower leg, initial encounter Disposition: ADMITTED INPATIENT Condition: Improved Decision to Admit Reason: Admit from ER (General) Decision to Admit/Date: Apr 19, 2017 Time/Decision to Admit Time: 08:30 Departure-Patient Inst. Referrals: JACOBY LEE MD (PCP/Family) Primary Care Physician CHYNA HERZOG MD Apr 19, 2017 08:51
[2017-04-19 09:40] VITALS: BP 172/80
[2017-04-19] MEDS ORDERED: CHOL10007 PO (10:17)
[2017-04-19] MEDS ORDERED: MULT-347 PO (10:17)
[2017-04-19] MEDS ORDERED: DIPH25CA79 PO (10:17)
[2017-04-19] MEDS ORDERED: ASCO-262 PO (10:17)
[2017-04-19] MEDS ORDERED: NS IV 1000 ML 1,000 ML IV SCH (11:00)
[2017-04-19] MEDS ORDERED: ONDANSETRON 4 MG/2 ML (SDV) Z0FRAN IVP PRN (11:30)
[2017-04-19] MEDS ORDERED: CATHETER FLUSH 10 ML SYR IV PRN (11:30)
[2017-04-19 12:41] VITALS: BP 173/81
[2017-04-19 16:00] VITALS: BP 196/88
--- NOTE | 2017-04-19 16:38 | Oncology Consultation ---
Visit Information Visit Information Date of Admission Apr 19, 2017 at 09:00 Attending Physician Linda Puente DO Admitting Physician Andrea Lee MD Chief Complaint Dizziness, nausea vomiting, UTI, CLL Interval History Ms. Jordan is a 86 year old white female known to me at the cancer center for treatment of CLL and hypogammaglobulinemia. She had lightheadedness, nausea and vomiting since last night and fell this morning at home but no fracture. At ER, she was found to have UTI and admitted for IV antibiotics and IVF. She is currently getting IVIG treatment every 3 months and Rituxan every 4 months. I consulted the patient on: 04/19/17 16:33 Time Seen by Provider: 16:10 Constitutional: dizziness, weakness EENTM: no symptoms reported Respiratory: cough Cardiovascular: no symptoms reported Gastrointestinal: nausea, vomiting Psychiatric/Neurological: No Symptoms Reported Health Status Allergies Coded Allergies: Penicillins (Verified Allergy, Unknown, 04/19/17) Sulfa (Sulfonamide Antibiotics) (Verified Allergy, Unknown, 04/19/17) clindamycin (Verified Allergy, Unknown, 04/19/17) Home Medications Ascorbate Calcium (Vitamin C) 500 Mg Tablet, 500 MG PO 1200, (Reported) Cholecalciferol (Vitamin D3) (Vitamin D3) 1,000 Unit Capsule, 1,000 UNIT PO DAILY, (Reported) Diphenhydramine HCl (Benadryl) 25 Mg Capsule, 25 MG PO HS, (Reported) Fluticasone Propionate (Fluticasone Propionate) 16 Gm [place].susp, 1 SPRAY NS BID , (Reported) Multivitamins with Iron (Daily Vitamin + Iron) 1 Each Tablet, 1 TAB PO 1200, ( Reported) DKF-Wzhnzo-Twwwda Hx Patient Social History Alcohol Use: Denies Use Recreational Drug Use: No Smoking Status: Never a Smoker 2nd Hand Smoke Exposure: No Recent Foreign Travel: No Contact w/other who traveled: No Recent Infectious Disease Expo: No Recent Hopitalizations: No Physical Abuse Screen: No Sexual Abuse: No Family Medical History Family History: Cardiovascular disease 19 MOTHER Completed stroke 19 MOTHER FH: kidney cancer 19 FATHER Hypertension 19 MOTHER Severe allergy No Family History of: Vaughn's disease Alcoholism Alzheimer's disease Dementia Diabetes mellitus Drug abuse Myocardial infarction Seizure disorder Tuberculosis Physical Exam Vital Signs Vital Sign - Last 12Hours 04/19/17 07:20 Temp 98.2 Pulse 72 Resp 16 B/P (MAP) 167/95 Pulse Ox 97 O2 Delivery Room Air Capillary Refill : Less Than 3 Seconds General Appearance: No Apparent Distress HEENT: PERRL/EOMI Neck: Non Tender, Supple Respiratory: Lungs Clear, No Accessory Muscle Use, No Respiratory Distress Cardiovascular: Regular Rate, Rhythm, No Edema Gastrointestinal: Non Tender, Soft Extremity: No Pedal Edema Neurologic/Psychiatric: Alert, Oriented x3 Data Review Labs Laboratory Tests 04/19/17 07:35 Laboratory Tests 04/19/17 07:35: Red Cell Distribution Width 15.9H, Mean Platelet Volume 12.3H, Potassium Level 3.5L, Chloride Level 110H, Glucose Level 110H, Total Bilirubin 1.4H 04/19/17 07:50: Urine Specific [place] 1.010L, Urine Nitrite POSITIVEH, Urine Leukocyte Esterase 3+H, Urine RBC (Auto) 1+H, Urine WBC >100H, Urine Bacteria MODERATEH Impression & Plan Impression & Plan IMP: 1. UTI on IV Levaquin. Pt already started feeling better now 2. Dehydration: IVF 3. Clear liquid diet and advance if patient can tolerate. 4. Anticipate 2-3 days of hospital stay. 5. Please schedule f/u with me in 1-2 weeks at cancer center after discharge. Thank you for the consult. JORJE CLARKE MD Apr 19, 2017 16:38
[2017-04-19 19:41] VITALS: BP 178/81
[2017-04-19] MEDS ORDERED: amLODIPine 5 MG (NORVASC) TAB PO PRN (20:00)
--- NOTE | 2017-04-19 20:07 | History & Physical-Hospitalist ---
HPI History of Present Illness: HPI/Chief Complaint This is Julian is a pleasant 86-year-old white female who had been working in her yard pulling weeds for several hours on 18 April. She denied feeling ill but just a little bit tired. When she went to bed she did have some mild dizziness but she was able to sleep through the night. Upon waking around 630 the morning of the second she reported dizziness denying true vertiginous symptoms. She had the urge to go to the bathroom and fell in route secondary to her dizziness. She denies any problems with confusion or difficulty with speech. She denied one-sided weakness numbness headache or any difficulty with swallowing. She hit the right side of her upper lateral calf and left elbow with small skin tears. She was able to get to the bathroom where she had a loose stool that was nonbloody without cramping or pain. She summoned a neighbor who brought her to the emergency room. She was given Zofran with resolution of her nausea. She continued to have a sensation of dizziness until about 1 o'clock p.m. this afternoon and then it abated. In the emergency room she did have evidence for pyuria and bacteriuria. She has had urinary tract infections in the past but usually been associated with typical symptoms of dysuria and increased frequency which she currently denies. EKG revealed left bundle branch block which I believe is old but will need to review my office medical record. Chest x-ray and right tibial films were unremarkable. The remainder of her laboratory evaluation was unremarkable except for UA. Past medical history is significant for non-Hodgkin's lymphoma with acquired immune deficiency for which she receives right toxin and IVIG per Dr. Cadet. She has a history of whitecoat hypertension and reports her blood pressure this morning was 128/72 prior to coming to the emergency room. The nurse notified me this evening that her blood pressure was in the 190 systolic range. She states she just gotten off the phone with her son who is insistent on driving up from [place]. She told him that she did not feel her symptomatology was that severe and was insistent that he stay. Date Seen 04/19/17 Time Seen by Provider: 07:30 Attending Physician Linda Puente DO PCP Jacoby Schwab MD Referring Physician Date of Admission Apr 19, 2017 at 09:00 Home Medications & Allergies Home Medications Reviewed patient Home Medication Reconciliation Form Allergies Allergies Coded Allergies Penicillins (Verified Allergy, Unknown, 04/19/17) Sulfa (Sulfonamide Antibiotics) (Verified Allergy, Unknown, 04/19/17) clindamycin (Verified Allergy, Unknown, 04/19/17) Past Agqslrn-Sufymd-Lzqfka Hx Patient Social History Alcohol Use: Denies Use Recreational Drug Use: No Smoking Status: Never a Smoker 2nd Hand Smoke Exposure: No Physical Abuse Screen: No Sexual Abuse: No Recent Foreign Travel: No Contact w/other who traveled: No Recent Hopitalizations: No Recent Infectious Disease Expo: No Seasonal Allergies Seasonal Allergies: Yes Surgeries HX Surgeries: Yes (splenectomy) Surgeries: Adenoidectomy, Appendectomy, Gallbladder, Hysterectomy, Tonsillectomy Respiratory Hx Respiratory Disorders: No Cardiovascular Hx Cardiovascular Disorders: No Neurological Hx Neurological Disorders: Yes (history of shingles) Reproductive System : No Genitourinary Hx Genitourinary Disorders: Yes (recurrent urinary tract infections) Gastrointestinal Hx Gastrointestinal Disorders: No Gastrointestinal Disorders: Diverticulosis, Hemorrhoids, Gall Bladder Disease Musculoskeletal Hx Musculoskeletal Disorders: No Musculoskeletal Disorders: Arthritis Endocrine Hx Endocrine Disorders: No HEENT HX ENT Disorders: Yes (sinusitis) HEENT Disorders: Cataract Hearing Impairment: Hard of Hearing, Bilateral Hearing Aide Cancer Hx Cancer: Yes Cancer: Lymphoma Psychosocial Hx Psychiatric Problems: No Integumentary HX Skin/Integumentary Disorder: No Family Medical History Family Hx: Cardiovascular disease 19 MOTHER Completed stroke 19 MOTHER FH: kidney cancer 19 FATHER Hypertension 19 MOTHER Severe allergy No Family History of: Shady's disease Alcoholism Alzheimer's disease Dementia Diabetes mellitus Drug abuse Myocardial infarction Seizure disorder Tuberculosis Review of Systems Constitutional: see HPI Respiratory: no symptoms reported, see HPI Cardiovascular: no symptoms reported, see HPI, No chest pain, No edema, No Hx of Intervention, No palpitations, No syncope, No vascular heart diseas, No other Physical Exam Physical Exam Vital Signs Vital Sign - Last 12Hours 04/19/17 07:20 Temp 98.2 Pulse 72 Resp 16 B/P (MAP) 167/95 Pulse Ox 97 O2 Delivery Room Air Capillary Refill : Less Than 3 Seconds General Appearance: No Apparent Distress, WD/WN Neck: Full Range of Motion, Normal Inspection, Non Tender, Supple, Other ( Carotid bruits.) Respiratory: Chest Non Tender, Lungs Clear, Normal Breath Sounds, No Accessory Muscle Use, No Respiratory Distress Cardiovascular: Regular Rate, Rhythm, No Edema, No Gallop, No JVD, No Murmur, Normal Peripheral Pulses Gastrointestinal: Normal Bowel Sounds, No Organomegaly, No Pulsatile Mass, Non Tender, Soft Extremity: No Pedal Edema, Other (Small bruise right upper lateral calf small skin tear purpura over her left elbow with normal range of motion and no swelling.) Neurologic/Psychiatric: Alert, Oriented x3, Normal Mood/Affect, single corner cutter II-XII Norm as Tested, Other (Extremity strength is 5+ gait is normal) Results Results/Procedures Lab Laboratory Tests 04/19/17 07:35 Assessment/Plan Admission Diagnosis 1. Dizziness with disequilibrium questionably secondary to urinary tract infection. Discussed the fact that he is option considering her activity level in hot weather was a concern and may be contributing. 2. Urinary tract infection which may be contributing as well culture sensitivity pending patient is tolerating Levaquin. 3. History of non-Hodgkin's lymphoma in remission on every 6 month Rituxan. 4. Acquired immunodeficiency likely due to number 3 and past chemotherapy on IVIG. Clinical Quality Measures DVT/VTE Risk/Contraindication: Risk Factor Score Per Nursin RFS Level Per Nursing on Admit: 4+=Very High JACOBY SCHWAB MD Apr 19, 2017 20:07
[2017-04-20] VITALS: BP 179/83
[2017-04-20 04:00] VITALS: BP 177/79
[2017-04-20 08:00] VITALS: BP 186/81
[2017-04-20] MEDS ORDERED: LEVOFLOXACIN 250 MG/50 ML IVPB 50 ML IV NR (08:30)
[2017-04-20] MEDS ORDERED: LEVO250T11 PO (08:32)
--- NOTE | 2017-04-20 08:39 | Discharge Summary-Hospitalist ---
Diagnosis/Chief Complaint Date of Admission Apr 19, 2017 at 09:00 Date of Discharge Discharge Date: Apr 20, 2017 Discharge Time: 08:00 Admission Diagnosis 1. Dizziness with disequilibrium questionably secondary to urinary tract infection. Discussed the fact that he is option considering her activity level in hot weather was a concern and may be contributing. 2. Urinary tract infection which may be contributing as well culture sensitivity pending patient is tolerating Levaquin. 3. History of non-Hodgkin's lymphoma in remission on every 6 month Rituxan. 4. Acquired immunodeficiency likely due to number 3 and past chemotherapy on IVIG. Discharge Diagnosis 1. Urinary tract infection with secondary disequilibrium. 2. Heat exhaustion contributing to number 1 and disequilibrium. 3. 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 4. Acquired immunodeficiency on IVIG. Discharge Summary Discharge Physical Examination Allergies: Coded Allergies: Penicillins (Verified Allergy, Unknown, 04/19/17) Sulfa (Sulfonamide Antibiotics) (Verified Allergy, Unknown, 04/19/17) clindamycin (Verified Allergy, Unknown, 04/19/17) Vitals & I&Os Vital Signs Date Time Temp Pulse Resp B/P (MAP) Pulse Ox O2 Delivery O2 Flow Rate FiO2 04/20/17 04:00 99.5 78 18 177/79 94 Room Air Hospital Course Labs (last 24 hrs) Microbiology 04/19/17 C. difficile GDH Antigen & Toxins - Final, Complete 04/19/17 Urine Culture - Preliminary, Resulted Gram Negative Solo Discharge Home Medications: Active Scripts Active Levaquin (Levofloxacin) 250 Mg Tablet 250 Mg PO DAILY 3 Days Reported Daily Vitamin + Iron (Multivitamins with Iron) 1 Each Tablet 1 Tab PO 1200 Benadryl (Diphenhydramine HCl) 25 Mg Capsule 25 Mg PO HS Vitamin D3 (Cholecalciferol (Vitamin D3)) 1,000 Unit Capsule 1,000 Unit PO DAILY Vitamin C (Ascorbate Calcium) 500 Mg Tablet 500 Mg PO 1200 Fluticasone Propionate 16 Gm Divide.susp 1 Divide NS BID Instructions to patient/family Please see electonic discharge instructions given to patient. Clinical Quality Measures DVT/VTE Risk/Contraindication: Risk Factor Score Per Nursin RFS Level Per Nursing on Admit: 4+=Very High JACOBY SCHWAB MD Apr 20, 2017 08:39
[2017-04-21] MEDS ORDERED: LEVOFLOXACIN 500 MG/D5W 100 ML (PRE-MIX) IV SCH (14:30)
== END 2017-04-20 11:00 | disposition home or self-care (01) | DRG 690 ==
LOC: EDUNIT# 07:14 → ER 07:16 → 4TH 09:00 → ENPENDDIS 04-20 08:00
PROVIDERS: ADMIT Internal Medicine; ATTEND Internal Medicine
DX: N39.0 Urinary tract infection, site not specified (principal); E86.0 Dehydration; R19.7 Diarrhea, unspecified; C85.90 Non-Hodgkin lymphoma, unspecified, unspecified site; D80.1 Nonfamilial hypogammaglobulinemia; C91.10 Chronic lymphocytic leukemia of B-cell type not having achieved remission; Z66 Do not resuscitate; S81.811A Laceration without foreign body, right lower leg, initial encounter; S51.012A Laceration without foreign body of left elbow, initial encounter; S80.11XA Contusion of right lower leg, initial encounter; T67.5XXA Heat exhaustion, unspecified, initial encounter; R11.0 Nausea; J30.2 Other seasonal allergic rhinitis; I44.7 Left bundle-branch block, unspecified; H91.93 Unspecified hearing loss, bilateral; M19.91 Primary osteoarthritis, unspecified site; W18.30XA Fall on same level, unspecified, initial encounter; Y92.008 Other place in unspecified non-institutional (private) residence as the place of occurrence of the external cause; Z79.899 Other long term (current) drug therapy
CPT/HCPCS: 36415; 51701; 71010; 73590; 80053; 81000; 83735; 84484; 85025; 87045; 87046; 87077; 87088; 87186; 87324; 87449; 93005; 93041; 96361; 96365; 96375

== ENCOUNTER → 2017-04-25 | Outpatient (CLI) | payer MEDICARE ==
[~2017-04-25] MED LIST changes: -ACETAMINOPHEN 500 MG TAB (TYLENOL) CANCER CTR ONE; -ACETAMINOPHEN 500 MG TAB (TYLENOL) PO SCH; +ASCO-262 PO; +CHOL10007 PO; +DIPH25CA79 PO; +FLUT16SP22 NS; -IMMU GLOBULIN,GAMMA (IGG) 50 ML IV SCH; -IMMUNE GLOBULIN,GAMMA (IGG) 200 ML IV SCH; +LEVO250T11 PO; +MULT-347 PO; -NS (IVPB) 250 ML IV SCH; -diphenhydrAMINE 25 MG TAB (BENADRYL) CANCER CENTER PO ONE; -diphenhydrAMINE 25 MG TAB (BENADRYL) PO SCH; -riTUXimab 500 MG, riTUXimab FOR IV INJ CONC 100 MG in NS (IVPB) CANCER CENTER ONLY 140 ML IV SCH
[2017-04-25 12:43] LABS: BILIRUBIN,URINE NEGATIVE (NEGATIVE); KETONES,URINE NEGATIVE (NEGATIVE); LEUKOCYTE ESTERASE ,URINE 1+ (NEGATIVE); NITRITE,URINE NEGATIVE (NEGATIVE); PH,URINE 8 (5-9); PROTEIN,URINE NEGATIVE (NEGATIVE); UROBILINOGEN,URINE NORMAL (NORMAL)
[2017-04-25 12:55] LABS: SQUAMOUS EPITHELIAL CELL,UR 0-2 /HPF
[2017-04-25 12:56] LABS: WBC,URINE 0-2 /HPF
== END ==
LOC: LAB 12:22
PROVIDERS: ATTEND Internal Medicine
DX: N39.0 Urinary tract infection, site not specified (principal)
CPT/HCPCS: 81000; 87088

== ENCOUNTER 2017-05-02 09:11 | Outpatient (RCR) | payer MEDICARE, BC ==
[2017-02-07 09:43] LABS: BASOPHILS # (AUTO) 0.1 10^3/uL (0.0-0.1); BASOPHILS % (AUTO) 1 % (0-10); EOSINOPHILS # (AUTO) 0.3 10^3/uL (0.0-0.3); EOSINOPHILS % (AUTO) 5 % (0-10); LYMPHOCYTES # (AUTO) 2.2 X 10^3 (1.0-4.0); LYMPHOCYTES % (AUTO) 31 % (12-44); MEAN CORPUSCULAR HEMOGLOBIN 31 PG (25-34); MEAN CORPUSCULAR HGB CONC 34 G/DL (32-36); MEAN CORPUSCULAR VOLUME 92 FL (80-99); MEAN PLATELET VOLUME 12.4 FL (7.4-10.4); MONOCYTES % (AUTO) 14 % (0-12); NEUTROPHILS # (AUTO) 3.5 X 10^3 (1.8-7.8); NEUTROPHILS % (AUTO) 49 % (42-75); PLATELET COUNT 236 10^3/uL (130-400); RED CELL DISTRIBUTION WIDTH 16.4 % (10.0-14.5); WHITE BLOOD COUNT 7.1 10^3/uL (4.3-11.0)
[2017-02-07 10:23] LABS: ALANINE AMINOTRANSFERASE 26 U/L (0-55); ALBUMIN 4.1 G/DL (3.2-4.5); ANION GAP 10 MMOL/L (5-14); ASPARTATE AMINO TRANSFERASE 34 U/L (5-34); BILIRUBIN,TOTAL 1.1 MG/DL (0.1-1.0); BLOOD UREA NITROGEN 20 MG/DL (7-18); BUN/CREATININE RATIO 24; CALCIUM 9.8 MG/DL (8.5-10.1); CARBON DIOXIDE 22 MMOL/L (21-32); CHLORIDE 111 MMOL/L (98-107); CREATININE SERUM 0.82 MG/DL (0.60-1.30); GFR ESTIMATED > 60; GLUCOSE 94 MG/DL (70-105); POTASSIUM 3.8 MMOL/L (3.6-5.0); SODIUM 143 MMOL/L (135-145); TOTAL PROTEIN 7.1 G/DL (6.4-8.2)
[2017-02-08 02:59] LABS: IMMUNOGLOBULIN IGA 23 mg/dL (71-263); IMMUNOGLOBULIN IGG 838 mg/dL (672-1680)
[2017-02-08 07:43] LABS: IMMUNOGLOBULIN IGM 17 mg/dL (47-209)
[2017-03-07 09:42] LABS: BASOPHILS # (AUTO) 0.1 10^3/uL (0.0-0.1); BASOPHILS % (AUTO) 1 % (0-10); EOSINOPHILS # (AUTO) 0.4 10^3/uL (0.0-0.3); EOSINOPHILS % (AUTO) 5 % (0-10); LYMPHOCYTES # (AUTO) 2.3 X 10^3 (1.0-4.0); LYMPHOCYTES % (AUTO) 29 % (12-44); MEAN CORPUSCULAR HEMOGLOBIN 31 PG (25-34); MEAN CORPUSCULAR HGB CONC 33 G/DL (32-36); MEAN CORPUSCULAR VOLUME 92 FL (80-99); MEAN PLATELET VOLUME 12.3 FL (7.4-10.4); MONOCYTES % (AUTO) 13 % (0-12); NEUTROPHILS # (AUTO) 4.2 X 10^3 (1.8-7.8); NEUTROPHILS % (AUTO) 53 % (42-75); PLATELET COUNT 237 10^3/uL (130-400); RED BLOOD COUNT 4.12 10^6/uL (4.35-5.85); RED CELL DISTRIBUTION WIDTH 16.2 % (10.0-14.5); WHITE BLOOD COUNT 7.9 10^3/uL (4.3-11.0)
[2017-03-07 10:00] LABS: ALANINE AMINOTRANSFERASE 22 U/L (0-55); ANION GAP 9 MMOL/L (5-14); ASPARTATE AMINO TRANSFERASE 33 U/L (5-34); BILIRUBIN,TOTAL 1.1 MG/DL (0.1-1.0); BLOOD UREA NITROGEN 18 MG/DL (7-18); BUN/CREATININE RATIO 22 (0-20); CALCIUM 9.5 MG/DL (8.5-10.1); CARBON DIOXIDE 22 MMOL/L (21-32); CHLORIDE 112 MMOL/L (98-107); CREATININE SERUM 0.83 MG/DL (0.60-1.30); GFR ESTIMATED > 60; GLUCOSE 86 MG/DL (70-105); HEMOLYSIS 9 (-100-29); ICTERUS 0.8 (-100-1.9); LACTATE DEHYDROGENASE 277 U/L (125-220); LIPEMIA -3 (-100-49); POTASSIUM 4.1 MMOL/L (3.6-5.0); SODIUM 143 MMOL/L (135-145); TOTAL PROTEIN 6.6 GM/DL (6.4-8.2)
[2017-03-08 05:03] LABS: IMMUNOGLOBULIN IGA 21 mg/dL (71-263); IMMUNOGLOBULIN IGG 677 mg/dL (672-1680)
[2017-03-08 08:04] LABS: IMMUNOGLOBULIN IGM 29 mg/dL (47-209)
[2017-04-24 13:11] LABS: BASOPHILS # (AUTO) 0.1 10^3/uL (0.0-0.1); BASOPHILS % (AUTO) 1 % (0-10); EOSINOPHILS # (AUTO) 0.1 10^3/uL (0.0-0.3); EOSINOPHILS % (AUTO) 2 % (0-10); LYMPHOCYTES # (AUTO) 2.1 X 10^3 (1.0-4.0); LYMPHOCYTES % (AUTO) 29 % (12-44); MEAN CORPUSCULAR HEMOGLOBIN 30 PG (25-34); MEAN CORPUSCULAR HGB CONC 33 G/DL (32-36); MEAN CORPUSCULAR VOLUME 92 FL (80-99); MEAN PLATELET VOLUME 11.9 FL (7.4-10.4); MONOCYTES # (AUTO) 0.8 X 10^3 (0.0-1.0); MONOCYTES % (AUTO) 11 % (0-12); NEUTROPHILS # (AUTO) 4.1 X 10^3 (1.8-7.8); NEUTROPHILS % (AUTO) 57 % (42-75); PLATELET COUNT 226 10^3/uL (130-400); RED BLOOD COUNT 4.27 10^6/uL (4.35-5.85); RED CELL DISTRIBUTION WIDTH 16.4 % (10.0-14.5); WHITE BLOOD COUNT 7.1 10^3/uL (4.3-11.0)
[2017-04-24 13:40] LABS: ALBUMIN 4.2 GM/DL (3.2-4.5); BILIRUBIN,TOTAL 0.9 MG/DL (0.1-1.0); CREATININE SERUM 0.89 MG/DL (0.60-1.30); POTASSIUM 3.8 MMOL/L (3.6-5.0); TOTAL PROTEIN 6.8 GM/DL (6.4-8.2)
[~2017-05-02] VITALS: Ht 154.9 cm; Wt 67.6 kg
[~2017-05-02 09:11] MED LIST changes: +ACETAMINOPHEN 500 MG TAB (TYLENOL) CANCER CTR ONE; +ACETAMINOPHEN 500 MG TAB (TYLENOL) PO SCH; +IMMU GLOBULIN,GAMMA (IGG) 50 ML IV SCH; +IMMUNE GLOBULIN,GAMMA (IGG) 200 ML IV SCH; +NS (IVPB) 250 ML IV SCH; +diphenhydrAMINE 25 MG TAB (BENADRYL) CANCER CENTER PO ONE; +diphenhydrAMINE 25 MG TAB (BENADRYL) PO SCH; +riTUXimab 500 MG, riTUXimab FOR IV INJ CONC 100 MG in NS (IVPB) CANCER CENTER ONLY 140 ML IV SCH
[2017-05-02 09:44] LABS: BASOPHILS # (AUTO) 0.1 10^3/uL (0.0-0.1); BASOPHILS % (AUTO) 1 % (0-10); EOSINOPHILS # (AUTO) 0.3 10^3/uL (0.0-0.3); EOSINOPHILS % (AUTO) 4 % (0-10); LYMPHOCYTES # (AUTO) 1.8 X 10^3 (1.0-4.0); LYMPHOCYTES % (AUTO) 26 % (12-44); MEAN CORPUSCULAR HEMOGLOBIN 31 PG (25-34); MEAN CORPUSCULAR HGB CONC 33 G/DL (32-36); MEAN CORPUSCULAR VOLUME 91 FL (80-99); MEAN PLATELET VOLUME 11.8 FL (7.4-10.4); MONOCYTES % (AUTO) 14 % (0-12); NEUTROPHILS # (AUTO) 3.9 X 10^3 (1.8-7.8); NEUTROPHILS % (AUTO) 56 % (42-75); PLATELET COUNT 259 10^3/uL (130-400); RED BLOOD COUNT 4.29 10^6/uL (4.35-5.85); RED CELL DISTRIBUTION WIDTH 16.2 % (10.0-14.5); WHITE BLOOD COUNT 7.1 10^3/uL (4.3-11.0)
[2017-05-02 10:08] LABS: ALANINE AMINOTRANSFERASE 24 U/L (0-55); ANION GAP 9 MMOL/L (5-14); ASPARTATE AMINO TRANSFERASE 31 U/L (5-34); BILIRUBIN,TOTAL 0.9 MG/DL (0.1-1.0); BLOOD UREA NITROGEN 22 MG/DL (7-18); BUN/CREATININE RATIO 29; CALCIUM 9.6 MG/DL (8.5-10.1); CARBON DIOXIDE 23 MMOL/L (21-32); CHLORIDE 113 MMOL/L (98-107); CREATININE SERUM 0.76 MG/DL (0.60-1.30); GFR ESTIMATED > 60; GLUCOSE 98 MG/DL (70-105); LACTATE DEHYDROGENASE 243 U/L (125-220); POTASSIUM 3.8 MMOL/L (3.6-5.0); SODIUM 145 MMOL/L (135-145); TOTAL PROTEIN 6.6 GM/DL (6.4-8.2)
[2017-05-03 03:18] LABS: IMMUNOGLOBULIN IGA 22 mg/dL (71-263); IMMUNOGLOBULIN IGG 663 mg/dL (672-1680)
[2017-05-03 07:48] LABS: IMMUNOGLOBULIN IGM 14 mg/dL (47-209)
== END 2017-05-08 | disposition home or self-care (01) ==
LOC: ONC 09:11
PROVIDERS: ATTEND Internal Medicine Hematology & Oncology
DX: Z51.11 Encounter for antineoplastic chemotherapy (principal); C91.10 Chronic lymphocytic leukemia of B-cell type not having achieved remission; D80.1 Nonfamilial hypogammaglobulinemia; Z79.899 Other long term (current) drug therapy
CPT/HCPCS: 36415; 80053; 82784; 83615; 85025; 96365; 96366; 96413; 99213

== ENCOUNTER 2017-05-29 10:50 | Outpatient (RCR) | payer MEDICARE ==
[~2017-05-29 10:50] MED LIST changes: -ACETAMINOPHEN 500 MG TAB (TYLENOL) CANCER CTR ONE; -diphenhydrAMINE 25 MG TAB (BENADRYL) CANCER CENTER PO ONE
[2017-05-29] MEDS ORDERED: ACETAMINOPHEN 500 MG TAB (TYLENOL) CANCER CTR ONE (10:58)
[2017-05-29] MEDS ORDERED: diphenhydrAMINE 25 MG TAB (BENADRYL) CANCER CENTER PO ONE (10:58)
[2017-05-29 11:08] LABS: BASOPHILS # (AUTO) 0.1 10^3/uL (0.0-0.1); BASOPHILS % (AUTO) 1 % (0-10); EOSINOPHILS # (AUTO) 0.2 10^3/uL (0.0-0.3); EOSINOPHILS % (AUTO) 3 % (0-10); LYMPHOCYTES # (AUTO) 1.9 X 10^3 (1.0-4.0); LYMPHOCYTES % (AUTO) 26 % (12-44); MEAN CORPUSCULAR HEMOGLOBIN 30 PG (25-34); MEAN CORPUSCULAR HGB CONC 32 G/DL (32-36); MEAN CORPUSCULAR VOLUME 92 FL (80-99); MEAN PLATELET VOLUME 11.4 FL (7.4-10.4); MONOCYTES % (AUTO) 14 % (0-12); NEUTROPHILS # (AUTO) 4.3 X 10^3 (1.8-7.8); NEUTROPHILS % (AUTO) 57 % (42-75); PLATELET COUNT 268 10^3/uL (130-400); RED BLOOD COUNT 3.38 10^6/uL (4.35-5.85); WHITE BLOOD COUNT 7.6 10^3/uL (4.3-11.0)
[2017-05-29 11:25] LABS: ALANINE AMINOTRANSFERASE 24 U/L (0-55); ALBUMIN 3.8 GM/DL (3.2-4.5); ANION GAP 7 MMOL/L (5-14); ASPARTATE AMINO TRANSFERASE 31 U/L (5-34); BILIRUBIN,TOTAL 0.8 MG/DL (0.1-1.0); BLOOD UREA NITROGEN 17 MG/DL (7-18); BUN/CREATININE RATIO 21; CALCIUM 9.1 MG/DL (8.5-10.1); CARBON DIOXIDE 24 MMOL/L (21-32); CHLORIDE 113 MMOL/L (98-107); GFR ESTIMATED > 60; GLUCOSE 91 MG/DL (70-105); SODIUM 144 MMOL/L (135-145); TOTAL PROTEIN 6.4 GM/DL (6.4-8.2)
[2017-05-30 01:30] LABS: IMMUNOGLOBULIN IGA 21 mg/dL (71-263); IMMUNOGLOBULIN IGG 724 mg/dL (672-1680)
[2017-05-30 08:00] LABS: IMMUNOGLOBULIN IGM 18 mg/dL (47-209)
== END 2017-06-17 | disposition home or self-care (01) ==
LOC: ONC 10:50
PROVIDERS: ATTEND Internal Medicine Hematology & Oncology
DX: Z51.11 Encounter for antineoplastic chemotherapy (principal); C91.10 Chronic lymphocytic leukemia of B-cell type not having achieved remission; D80.1 Nonfamilial hypogammaglobulinemia; Z79.899 Other long term (current) drug therapy
CPT/HCPCS: 36415; 80053; 82784; 85025; 96413

== ENCOUNTER 2017-08-21 08:36 | Outpatient (RCR) | payer MEDICARE ==
[2017-06-26 09:03] LABS: BASOPHILS # (AUTO) 0.1 10^3/uL (0.0-0.1); BASOPHILS % (AUTO) 2 % (0-10); EOSINOPHILS # (AUTO) 0.3 10^3/uL (0.0-0.3); EOSINOPHILS % (AUTO) 4 % (0-10); HEMATOCRIT 37 % (35-52); HEMOGLOBIN 11.9 G/DL (11.5-16.0); LYMPHOCYTES % (AUTO) 29 % (12-44); MEAN CORPUSCULAR HEMOGLOBIN 30 PG (25-34); MEAN CORPUSCULAR HGB CONC 32 G/DL (32-36); MEAN CORPUSCULAR VOLUME 93 FL (80-99); MEAN PLATELET VOLUME 12.2 FL (7.4-10.4); MONOCYTES % (AUTO) 14 % (0-12); NEUTROPHILS # (AUTO) 3.5 X 10^3 (1.8-7.8); NEUTROPHILS % (AUTO) 51 % (42-75); PLATELET COUNT 262 10^3/uL (130-400); RED BLOOD COUNT 4.01 10^6/uL (4.35-5.85); RED CELL DISTRIBUTION WIDTH 15.8 % (10.0-14.5); WHITE BLOOD COUNT 6.9 10^3/uL (4.3-11.0)
[2017-06-26 09:25] LABS: ALANINE AMINOTRANSFERASE 20 U/L (0-55); ALBUMIN 4.1 GM/DL (3.2-4.5); ALKALINE PHOSPHATASE 89 U/L (40-136); BILIRUBIN,TOTAL 0.8 MG/DL (0.1-1.0); BUN/CREATININE RATIO 19; CALCIUM 9.2 MG/DL (8.5-10.1); CARBON DIOXIDE 25 MMOL/L (21-32); CHLORIDE 113 MMOL/L (98-107); CREATININE SERUM 0.83 MG/DL (0.60-1.30); GFR ESTIMATED > 60; GLUCOSE 75 MG/DL (70-105); POTASSIUM 3.7 MMOL/L (3.6-5.0); SODIUM 144 MMOL/L (135-145); TOTAL PROTEIN 6.7 GM/DL (6.4-8.2)
[~2017-08-21 08:36] MED LIST changes: +ACETAMINOPHEN 500 MG TAB (TYLENOL) CANCER CTR ONE; +diphenhydrAMINE 25 MG TAB (BENADRYL) CANCER CENTER PO ONE
[2017-08-21 09:08] LABS: BASOPHILS # (AUTO) 0.1 10^3/uL (0.0-0.1); BASOPHILS % (AUTO) 1 % (0-10); EOSINOPHILS # (AUTO) 0.2 10^3/uL (0.0-0.3); EOSINOPHILS % (AUTO) 3 % (0-10); HEMATOCRIT 38 % (35-52); HEMOGLOBIN 12.8 G/DL (11.5-16.0); LYMPHOCYTES # (AUTO) 2.1 X 10^3 (1.0-4.0); LYMPHOCYTES % (AUTO) 22 % (12-44); MEAN CORPUSCULAR HEMOGLOBIN 30 PG (25-34); MEAN CORPUSCULAR HGB CONC 33 G/DL (32-36); MEAN CORPUSCULAR VOLUME 89 FL (80-99); MONOCYTES # (AUTO) 1.1 X 10^3 (0.0-1.0); MONOCYTES % (AUTO) 12 % (0-12); NEUTROPHILS # (AUTO) 5.9 X 10^3 (1.8-7.8); NEUTROPHILS % (AUTO) 63 % (42-75); PLATELET COUNT 296 10^3/uL (130-400); RED BLOOD COUNT 4.31 10^6/uL (4.35-5.85); RED CELL DISTRIBUTION WIDTH 15.9 % (10.0-14.5); WHITE BLOOD COUNT 9.3 10^3/uL (4.3-11.0)
[2017-08-21] MEDS ORDERED: ACETAMINOPHEN 500 MG TAB (TYLENOL) CANCER CTR ONE (09:25)
[2017-08-21] MEDS ORDERED: diphenhydrAMINE 25 MG TAB (BENADRYL) CANCER CENTER PO ONE (09:25)
[2017-08-21 09:26] LABS: ALANINE AMINOTRANSFERASE 19 U/L (0-55); ALKALINE PHOSPHATASE 96 U/L (40-136); BILIRUBIN,TOTAL 0.8 MG/DL (0.1-1.0); BUN/CREATININE RATIO 18; CALCIUM 9.6 MG/DL (8.5-10.1); CARBON DIOXIDE 24 MMOL/L (21-32); CHLORIDE 110 MMOL/L (98-107); CREATININE SERUM 0.87 MG/DL (0.60-1.30); GFR ESTIMATED > 60; GLUCOSE 85 MG/DL (70-105); SODIUM 143 MMOL/L (135-145); TOTAL PROTEIN 6.8 GM/DL (6.4-8.2)
== END 2017-09-24 | disposition home or self-care (01) ==
LOC: ONC 08:36
PROVIDERS: ATTEND Internal Medicine Hematology & Oncology
DX: C91.10 Chronic lymphocytic leukemia of B-cell type not having achieved remission (principal); D80.1 Nonfamilial hypogammaglobulinemia; Z79.899 Other long term (current) drug therapy
CPT/HCPCS: 36415; 80053; 82784; 83615; 85025; 96365; 96366

== ENCOUNTER 2017-12-11 08:44 | Outpatient (RCR) | payer MEDICARE ==
[2017-10-16 09:21] LABS: BASOPHILS # (AUTO) 0.1 10^3/uL (0.0-0.1); BASOPHILS % (AUTO) 1 % (0-10); EOSINOPHILS # (AUTO) 0.3 10^3/uL (0.0-0.3); EOSINOPHILS % (AUTO) 4 % (0-10); HEMATOCRIT 37 % (35-52); HEMOGLOBIN 12.8 G/DL (11.5-16.0); LYMPHOCYTES # (AUTO) 2.6 X 10^3 (1.0-4.0); LYMPHOCYTES % (AUTO) 28 % (12-44); MEAN CORPUSCULAR HEMOGLOBIN 30 PG (25-34); MEAN CORPUSCULAR HGB CONC 35 G/DL (32-36); MEAN CORPUSCULAR VOLUME 87 FL (80-99); MEAN PLATELET VOLUME 12.6 FL (7.4-10.4); MONOCYTES # (AUTO) 1.3 X 10^3 (0.0-1.0); MONOCYTES % (AUTO) 14 % (0-12); NEUTROPHILS % (AUTO) 53 % (42-75); PLATELET COUNT 274 10^3/uL (130-400); RED BLOOD COUNT 4.21 10^6/uL (4.35-5.85); RED CELL DISTRIBUTION WIDTH 17.9 % (10.0-14.5); WHITE BLOOD COUNT 9.3 10^3/uL (4.3-11.0)
[2017-10-16 09:43] LABS: ALANINE AMINOTRANSFERASE 20 U/L (0-55); ALBUMIN 3.9 GM/DL (3.2-4.5); ALKALINE PHOSPHATASE 96 U/L (40-136); BUN/CREATININE RATIO 25; CALCIUM 9.2 MG/DL (8.5-10.1); CARBON DIOXIDE 21 MMOL/L (21-32); CHLORIDE 113 MMOL/L (98-107); CREATININE SERUM 0.85 MG/DL (0.60-1.30); GFR ESTIMATED > 60; GLUCOSE 95 MG/DL (70-105); POTASSIUM 3.9 MMOL/L (3.6-5.0); SODIUM 144 MMOL/L (135-145); TOTAL PROTEIN 6.6 GM/DL (6.4-8.2)
[2017-12-11 09:06] LABS: BASOPHILS # (AUTO) 0.1 10^3/uL (0.0-0.1); BASOPHILS % (AUTO) 1 % (0-10); EOSINOPHILS # (AUTO) 0.3 10^3/uL (0.0-0.3); EOSINOPHILS % (AUTO) 5 % (0-10); HEMATOCRIT 39 % (35-52); HEMOGLOBIN 13.2 G/DL (11.5-16.0); LYMPHOCYTES # (AUTO) 2.5 X 10^3 (1.0-4.0); LYMPHOCYTES % (AUTO) 33 % (12-44); MEAN CORPUSCULAR HEMOGLOBIN 31 PG (25-34); MEAN CORPUSCULAR HGB CONC 34 G/DL (32-36); MEAN CORPUSCULAR VOLUME 91 FL (80-99); MEAN PLATELET VOLUME 12.6 FL (7.4-10.4); MONOCYTES % (AUTO) 14 % (0-12); NEUTROPHILS # (AUTO) 3.5 X 10^3 (1.8-7.8); NEUTROPHILS % (AUTO) 47 % (42-75); PLATELET COUNT 225 10^3/uL (130-400); RED BLOOD COUNT 4.27 10^6/uL (4.35-5.85); RED CELL DISTRIBUTION WIDTH 17.1 % (10.0-14.5); WHITE BLOOD COUNT 7.5 10^3/uL (4.3-11.0)
[2017-12-11] MEDS ORDERED: diphenhydrAMINE 25 MG TAB (BENADRYL) CANCER CENTER PO ONE (09:25)
[2017-12-11] MEDS ORDERED: ACETAMINOPHEN 500 MG TAB (TYLENOL) CANCER CTR ONE (09:25)
[2017-12-11] MEDS ORDERED: NS (IVPB) 250 ML IV SCH (09:30)
[2017-12-11] MEDS ORDERED: diphenhydrAMINE 25 MG TAB (BENADRYL) PO SCH (09:45)
[2017-12-11] MEDS ORDERED: ACETAMINOPHEN 500 MG TAB (TYLENOL) PO SCH (09:45)
[2017-12-11 10:01] LABS: ALANINE AMINOTRANSFERASE 22 U/L (0-55); ALBUMIN 4.2 GM/DL (3.2-4.5); ALKALINE PHOSPHATASE 90 U/L (40-136); BILIRUBIN,TOTAL 0.9 MG/DL (0.1-1.0); BUN/CREATININE RATIO 23; CALCIUM 9.7 MG/DL (8.5-10.1); CARBON DIOXIDE 24 MMOL/L (21-32); CHLORIDE 111 MMOL/L (98-107); CREATININE SERUM 0.86 MG/DL (0.60-1.30); GFR ESTIMATED > 60; GLUCOSE 86 MG/DL (70-105); POTASSIUM 4.2 MMOL/L (3.6-5.0); SODIUM 143 MMOL/L (135-145); TOTAL PROTEIN 6.4 GM/DL (6.4-8.2)
== END 2018-01-14 | disposition home or self-care (01) ==
LOC: ONC 08:44
PROVIDERS: ATTEND Internal Medicine Hematology & Oncology
DX: C91.10 Chronic lymphocytic leukemia of B-cell type not having achieved remission (principal); D80.1 Nonfamilial hypogammaglobulinemia; J30.9 Allergic rhinitis, unspecified; Z79.899 Other long term (current) drug therapy
CPT/HCPCS: 36415; 80053; 83615; 85025; 96365; 96366

== ENCOUNTER 2018-02-05 08:42 | Outpatient (RCR) | payer MEDICARE ==
[~2018-02-05 08:42] MED LIST changes: -ACETAMINOPHEN 500 MG TAB (TYLENOL) CANCER CTR ONE; -diphenhydrAMINE 25 MG TAB (BENADRYL) CANCER CENTER PO ONE
[2018-02-05 09:08] LABS: BASOPHILS # (AUTO) 0.1 10^3/uL (0.0-0.1); BASOPHILS % (AUTO) 1 % (0-10); EOSINOPHILS # (AUTO) 0.3 10^3/uL (0.0-0.3); EOSINOPHILS % (AUTO) 3 % (0-10); HEMATOCRIT 39 % (35-52); LYMPHOCYTES # (AUTO) 2.6 X 10^3 (1.0-4.0); LYMPHOCYTES % (AUTO) 33 % (12-44); MEAN CORPUSCULAR HEMOGLOBIN 31 PG (25-34); MEAN CORPUSCULAR HGB CONC 34 G/DL (32-36); MEAN CORPUSCULAR VOLUME 91 FL (80-99); MEAN PLATELET VOLUME 12.9 FL (7.4-10.4); MONOCYTES % (AUTO) 12 % (0-12); NEUTROPHILS % (AUTO) 51 % (42-75); PLATELET COUNT 271 10^3/uL (130-400); RED BLOOD COUNT 4.25 10^6/uL (4.35-5.85); RED CELL DISTRIBUTION WIDTH 16.2 % (10.0-14.5); WHITE BLOOD COUNT 7.8 10^3/uL (4.3-11.0)
[2018-02-05 09:26] LABS: ALANINE AMINOTRANSFERASE 20 U/L (0-55); ALBUMIN 4.2 GM/DL (3.2-4.5); ALKALINE PHOSPHATASE 85 U/L (40-136); BUN/CREATININE RATIO 18; CALCIUM 9.6 MG/DL (8.5-10.1); CARBON DIOXIDE 21 MMOL/L (21-32); CHLORIDE 112 MMOL/L (98-107); CREATININE SERUM 0.87 MG/DL (0.60-1.30); GFR ESTIMATED > 60; GLUCOSE 87 MG/DL (70-105); POTASSIUM 4.3 MMOL/L (3.6-5.0); SODIUM 143 MMOL/L (135-145); TOTAL PROTEIN 6.6 GM/DL (6.4-8.2)
[2018-04-09 11:09] LABS: BASOPHILS # (AUTO) 0.1 10^3/uL (0.0-0.1); BASOPHILS % (AUTO) 1 % (0-10); EOSINOPHILS # (AUTO) 0.2 10^3/uL (0.0-0.3); EOSINOPHILS % (AUTO) 2 % (0-10); HEMATOCRIT 39 % (35-52); HEMOGLOBIN 13.1 G/DL (11.5-16.0); LYMPHOCYTES # (AUTO) 2.7 X 10^3 (1.0-4.0); LYMPHOCYTES % (AUTO) 32 % (12-44); MEAN CORPUSCULAR HEMOGLOBIN 31 PG (25-34); MEAN CORPUSCULAR HGB CONC 34 G/DL (32-36); MEAN CORPUSCULAR VOLUME 90 FL (80-99); MEAN PLATELET VOLUME 12.3 FL (7.4-10.4); MONOCYTES % (AUTO) 13 % (0-12); NEUTROPHILS # (AUTO) 4.4 X 10^3 (1.8-7.8); NEUTROPHILS % (AUTO) 53 % (42-75); PLATELET COUNT 267 10^3/uL (130-400); RED BLOOD COUNT 4.27 10^6/uL (4.35-5.85); RED CELL DISTRIBUTION WIDTH 16.3 % (10.0-14.5); WHITE BLOOD COUNT 8.3 10^3/uL (4.3-11.0)
[2018-04-09 11:27] LABS: ALANINE AMINOTRANSFERASE 22 U/L (0-55); ALBUMIN 4.3 GM/DL (3.2-4.5); ALKALINE PHOSPHATASE 92 U/L (40-136); BILIRUBIN,TOTAL 0.9 MG/DL (0.1-1.0); BUN/CREATININE RATIO 22; CALCIUM 9.6 MG/DL (8.5-10.1); CARBON DIOXIDE 23 MMOL/L (21-32); CHLORIDE 114 MMOL/L (98-107); CREATININE SERUM 0.79 MG/DL (0.60-1.30); GFR ESTIMATED > 60; GLUCOSE 89 MG/DL (70-105); POTASSIUM 4.1 MMOL/L (3.6-5.0); SODIUM 144 MMOL/L (135-145); TOTAL PROTEIN 6.7 GM/DL (6.4-8.2)
== END 2018-04-09 10:48 | disposition home or self-care (01) ==
LOC: ONC 08:42
PROVIDERS: ATTEND Internal Medicine Hematology & Oncology
DX: C91.10 Chronic lymphocytic leukemia of B-cell type not having achieved remission (principal); D80.1 Nonfamilial hypogammaglobulinemia; Z79.899 Other long term (current) drug therapy
CPT/HCPCS: 36415; 80053; 82784; 85025; 96365; 96366

== ENCOUNTER 2018-06-04 08:39 | Outpatient (RCR) | payer MEDICARE ==
[~2018-06-04 08:39] MED LIST changes: +ACETAMINOPHEN 500 MG TAB (TYLENOL) CANCER CTR ONE; +diphenhydrAMINE 25 MG TAB (BENADRYL) CANCER CENTER PO ONE
[2018-06-04 09:07] LABS: BASOPHILS # (AUTO) 0.1 10^3/uL (0.0-0.1); BASOPHILS % (AUTO) 1 % (0-10); EOSINOPHILS # (AUTO) 0.3 10^3/uL (0.0-0.3); EOSINOPHILS % (AUTO) 4 % (0-10); HEMATOCRIT 39 % (35-52); HEMOGLOBIN 13.2 G/DL (11.5-16.0); LYMPHOCYTES # (AUTO) 2.4 X 10^3 (1.0-4.0); LYMPHOCYTES % (AUTO) 30 % (12-44); MEAN CORPUSCULAR HEMOGLOBIN 31 PG (25-34); MEAN CORPUSCULAR HGB CONC 34 G/DL (32-36); MEAN CORPUSCULAR VOLUME 92 FL (80-99); MONOCYTES % (AUTO) 13 % (0-12); NEUTROPHILS # (AUTO) 4.2 X 10^3 (1.8-7.8); NEUTROPHILS % (AUTO) 53 % (42-75); PLATELET COUNT 258 10^3/uL (130-400); RED BLOOD COUNT 4.25 10^6/uL (4.35-5.85); RED CELL DISTRIBUTION WIDTH 16.6 % (10.0-14.5)
[2018-06-04] MEDS ORDERED: ACETAMINOPHEN 500 MG TAB (TYLENOL) CANCER CTR ONE (09:18)
[2018-06-04] MEDS ORDERED: diphenhydrAMINE 25 MG TAB (BENADRYL) CANCER CENTER PO ONE (09:18)
[2018-06-04 09:36] LABS: ALANINE AMINOTRANSFERASE 21 U/L (0-55); ALBUMIN 4.2 GM/DL (3.2-4.5); ALKALINE PHOSPHATASE 92 U/L (40-136); BILIRUBIN,TOTAL 1.1 MG/DL (0.1-1.0); BUN/CREATININE RATIO 20; CALCIUM 9.7 MG/DL (8.5-10.1); CARBON DIOXIDE 22 MMOL/L (21-32); CHLORIDE 112 MMOL/L (98-107); CREATININE SERUM 0.81 MG/DL (0.60-1.30); GFR ESTIMATED > 60; GLUCOSE 80 MG/DL (70-105); POTASSIUM 3.9 MMOL/L (3.6-5.0); SODIUM 143 MMOL/L (135-145); TOTAL PROTEIN 6.2 GM/DL (6.4-8.2)
== END 2018-07-08 | disposition home or self-care (01) ==
LOC: ONC 08:39
PROVIDERS: ATTEND Internal Medicine Hematology & Oncology
DX: C91.10 Chronic lymphocytic leukemia of B-cell type not having achieved remission (principal); D80.1 Nonfamilial hypogammaglobulinemia; Z79.899 Other long term (current) drug therapy
CPT/HCPCS: 36415; 80053; 85025; 96365; 96366

== ENCOUNTER 2018-08-29 09:39 | Inpatient (IN) | payer MEDICARE ==
[2018-08-29] VITALS (14 sets, daily range): BP systolic 95–121; BP diastolic 50–65
[~2018-08-29] VITALS: Ht 157.5 cm; Wt 69.0 kg
[~2018-08-29 09:39] MED LIST changes: -ACETAMINOPHEN 500 MG TAB (TYLENOL) CANCER CTR ONE; -ACETAMINOPHEN 500 MG TAB (TYLENOL) PO SCH; -IMMU GLOBULIN,GAMMA (IGG) 50 ML IV SCH; -IMMUNE GLOBULIN,GAMMA (IGG) 200 ML IV SCH; -NS (IVPB) 250 ML IV SCH; -diphenhydrAMINE 25 MG TAB (BENADRYL) CANCER CENTER PO ONE; -diphenhydrAMINE 25 MG TAB (BENADRYL) PO SCH; -riTUXimab 500 MG, riTUXimab FOR IV INJ CONC 100 MG in NS (IVPB) CANCER CENTER ONLY 140 ML IV SCH
[2018-08-29 10:03] LABS: BASOPHILS % (AUTO) 0 % (0-10); EOSINOPHILS % (AUTO) 0 % (0-10); HEMATOCRIT 31 % (35-52); LYMPHOCYTES # (AUTO) 2.2 X 10^3 (1.0-4.0); LYMPHOCYTES % (AUTO) 15 % (12-44); MEAN CORPUSCULAR HEMOGLOBIN 31 PG (25-34); MEAN CORPUSCULAR HGB CONC 32 G/DL (32-36); MEAN CORPUSCULAR VOLUME 95 FL (80-99); MEAN PLATELET VOLUME 12.5 FL (7.4-10.4); MONOCYTES # (AUTO) 0.5 X 10^3 (0.0-1.0); MONOCYTES % (AUTO) 4 % (0-12); NEUTROPHILS # (AUTO) 11.3 X 10^3 (1.8-7.8); NEUTROPHILS % (AUTO) 80 % (42-75); PLATELET COUNT 204 10^3/uL (130-400); RED BLOOD COUNT 3.24 10^6/uL (4.35-5.85); RED CELL DISTRIBUTION WIDTH 15.7 % (10.0-14.5)
[2018-08-29] MEDS ORDERED: LOSA25TA6 PO (10:11)
[2018-08-29 10:16] LABS: ALBUMIN 3.6 GM/DL (3.2-4.5); CALCIUM 8.9 MG/DL (8.5-10.1); CREATININE SERUM 1.11 MG/DL (0.60-1.30); POTASSIUM 4.6 MMOL/L (3.6-5.0); TOTAL PROTEIN 5.7 GM/DL (6.4-8.2)
[2018-08-29 10:25] LABS: BAND NEUTROPHILS 0 %; BASOPHILS % (MANUAL) 0 %; EOSINOPHILS % (MANUAL) 1 %; LYMPHOCYTES % (MANUAL) 11 %; MONOCYTES % (MANUAL) 4 %; NEUTROPHILS % (MANUAL) 78 %; REACTIVE LYMPHOCYTES 6 %
[2018-08-29 10:26] LABS: ACANTHOCYTES MODERATE; ELLIPT/OVALOCYTES MODERATE; POIKILOCYTOSIS MODERATE; TARGET CELLS SLIGHT; TOXIC GRANULATION/VACUOLAZATIO 1+
[2018-08-29 10:27] LABS: ANISOCYTOSIS SLIGHT
[2018-08-29] MEDS ORDERED: ONDANSETRON 4 MG/2 ML (SDV) Z0FRAN ONE (10:29)
[2018-08-29] MEDS ORDERED: NS 100 ML (IVPB) BAG IV ONE (10:30)
[2018-08-29] MEDS ORDERED: RECEIVED CONTRAST (Hold Metformin) IV SCH (10:30)
[2018-08-29] MEDS ORDERED: IOHEXOL 350 MG/ML 100 ML (OMNIPAQUE 350) VIAL IV ONE (10:30)
--- NOTE | 2018-08-29 10:30 | ED GI ---
General Chief Complaint: Abdominal/GI Problems Stated Complaint: GI BLEED Nursing Triage Note: pt presents to ed per ems to room 4. pt woke up this am with bloody stools and emesis. pt does not recall when she started vomiting. pt also has aprox 2cm lac to back of head and skin tear to l arm but does not recall falling. Pt reports she was feeling fine yesterday. EMS reports a moderate amount of apparent bloody emesis and stool in pt bedding at home. Sepsis Screen: No Definite Risk Source of Information: Patient Exam Limitations: No Limitations History of Present Illness Date Seen by Provider: Aug 29, 2018 Time Seen by Provider: 09:45 Initial Comments Here with report of bloody stools and vomiting blood. She does not know what happened. She does report that she fell last night and does have a small abrasion on the left side of her head and a skin tear to the left elbow. EMS noted blood in her bed that was bright at some points that seems to be coming from vomiting and dark from stool. She has blood around her mouth and residual bloody stool on her legs. Admits to being weak. She activated EMS with medical alert button. Less nauseated now although was dry heaving on arrival. Does have history of lymphoma. Timing/Duration: 4-6 Hours Severity/Quality: Moderate, Cramping Location: Generalized Abdomen Radiation: No Radiation Modifying Factors: Worsens With Movement Associated Symptoms: No Back Pain, No Chest Pain, No Fever/Chills; Nausea/ Vomiting; No Shortness of Air; Weakness Allergies and Home Medications Allergies Coded Allergies: Penicillins (Verified Allergy, Unknown, 04/19/17) Sulfa (Sulfonamide Antibiotics) (Verified Allergy, Unknown, 04/19/17) clindamycin (Verified Allergy, Unknown, 04/19/17) Home Medications Ascorbate Calcium 500 Mg Tablet, 500 MG PO 1200, (Reported) Cholecalciferol (Vitamin D3) 1,000 Unit Capsule, 1,000 UNIT PO DAILY, (Reported) Diphenhydramine HCl 25 Mg Capsule, 25 MG PO HS, (Reported) Fluticasone Propionate 16 Gm Opal.susp, 1 SPRAY NS BID, (Reported) Losartan Potassium 25 Mg Tablet, 25 MG PO DAILY, (Reported) Multivitamins with Iron 1 Each Tablet, 1 TAB PO 1200, (Reported) Patient Home Medication List Home Medication List Reviewed: Yes Review of Systems Review of Systems Constitutional: see HPI; No chills, No fever EENTM: No Symptoms Reported Respiratory: Denies Shortness of Air, Denies Wheezing Cardiovascular: Denies Chest Pain; Irregular Heart Rate Gastrointestinal: Abdominal Pain, Nausea, Rectal Bleeding, Vomiting Genitourinary: No Symptoms Reported Musculoskeletal: No joint pain; muscle weakness Skin: lesions (skin tear and abrasions) Psychiatric/Neurological: Headache (mild left-sided), Weakness Endocrine: No Symptoms Reported Hematologic/Lymphatic: See HPI All Other Systems Reviewed Negative Unless Noted: Yes Past Hxiirbz-Gtmngu-Pbmlnl Hx Past Med/Social Hx: Reviewed Nursing Past Med/Soc Hx Patient Social History Alcohol Use: Denies Use Recreational Drug Use: No Smoking Status: Never a Smoker 2nd Hand Smoke Exposure: No Recent Foreign Travel: No Contact w/Someone Who Travel: No Recent Infectious Disease Expo: No Recent Hopitalizations: No Seasonal Allergies Seasonal Allergies: Yes Past Medical History Surgeries: Yes (splenectomy) Adenoidectomy, Appendectomy, Gallbladder, Hysterectomy, Tonsillectomy Respiratory: No Currently Using CPAP: No Currently Using BIPAP: No Cardiac: No Hypertension Neurological: Yes (history of shingles) Genitourinary: No Gastrointestinal: Yes Diverticulosis, Hemorrhoids, Gall Bladder Disease Musculoskeletal: Yes Arthritis Endocrine: No HEENT: Yes Cataract Hearing Impairment: Hard of Hearing, Bilateral Hearing Aide Cancer: Yes Lymphoma Did You Recieve Any Treatments: Yes What Type of Treatment Did You: Chemotherapy Psychosocial: No Integumentary: No Blood Disorders: No Family Medical History Reviewed Nursing Family Hx Cardiovascular disease 19 MOTHER Completed stroke 19 MOTHER FH: kidney cancer 19 FATHER Hypertension 19 MOTHER Severe allergy No Family History of: [place]'s disease Alcoholism Alzheimer's disease Dementia Diabetes mellitus Drug abuse Myocardial infarction Seizure disorder Tuberculosis Physical Exam Vital Signs Vital Signs - First Documented 08/29/18 10:01 Temp 97.6 Pulse 101 Resp 20 B/P (MAP) 98/60 (73) Pulse Ox 96 Capillary Refill : Greater Than 3 Seconds Height/Weight/BMI Height: 5'1.00" Weight: 154lbs. 0.0oz. 69.775419ms; 27.4 BMI Method:Stated General Appearance: WD/WN, mild distress HEENT: PERRL/EOMI, pharynx normal, pale conjunctivae (R), pale conjunctivae (L) Neck: full range of motion, supple Respiratory: lungs clear, normal breath sounds (for is not on the monitor where she CT) Cardiovascular: tachycardia, irregularly irregular Gastrointestinal: non tender, soft Extremities: non-tender, normal inspection Back: normal inspection, no CVA tenderness, no vertebral tenderness Neurologic/Psychiatric: alert, oriented x 3 Skin: warm/dry, pallor, other (abrasion to the left elbow area that is a skin tear. 2 cm abrasion linear and superficial to the left side of the head above the left ear.) Progress/Results/Core Measures Results/Orders Lab Results Laboratory Tests Test 08/29/18 09:45 Range/Units White Blood Count 14.0 H 4.3-11.0 10^3/uL Red Blood Count 3.24 L 4.35-5.85 10^6/uL Hemoglobin 10.0 L 11.5-16.0 G/DL Hematocrit 31 L 35-52 % Mean Corpuscular Volume 95 80-99 FL Mean Corpuscular Hemoglobin 31 25-34 PG Mean Corpuscular Hemoglobin Concent 32 32-36 G/DL Red Cell Distribution Width 15.7 H 10.0-14.5 % Platelet Count 204 130-400 10^3/uL Mean Platelet Volume 12.5 H 7.4-10.4 FL Neutrophils (%) (Auto) 80 H 42-75 % Lymphocytes (%) (Auto) 15 12-44 % Monocytes (%) (Auto) 4 0-12 % Eosinophils (%) (Auto) 0 0-10 % Basophils (%) (Auto) 0 0-10 % Neutrophils # (Auto) 11.3 H 1.8-7.8 X 10^3 Lymphocytes # (Auto) 2.2 1.0-4.0 X 10^3 Monocytes # (Auto) 0.5 0.0-1.0 X 10^3 Eosinophils # (Auto) 0.0 0.0-0.3 10^3/uL Basophils # (Auto) 0.0 0.0-0.1 10^3/uL Neutrophils % (Manual) 78 % Lymphocytes % (Manual) 11 % Monocytes % (Manual) 4 % Eosinophils % (Manual) 1 % Basophils % (Manual) 0 % Band Neutrophils 0 % Reactive Lymphocytes 6 % Toxic Granulation 1+ Poikilocytosis MODERATE Anisocytosis SLIGHT Target Cells SLIGHT Elliptocytes MODERATE Acanthocytes MODERATE Sodium Level 144 135-145 MMOL/L Potassium Level 4.6 3.6-5.0 MMOL/L Chloride Level 114 H 98-107 MMOL/L Carbon Dioxide Level 17 L 21-32 MMOL/L Anion Gap 13 5-14 MMOL/L Blood Urea Nitrogen 57 H 7-18 MG/DL Creatinine 1.11 0.60-1.30 MG/DL Estimat Glomerular Filtration Rate 47 BUN/Creatinine Ratio 51 Glucose Level 185 H 70-105 MG/DL Calcium Level 8.9 8.5-10.1 MG/DL Corrected Calcium 9.2 8.5-10.1 MG/DL Magnesium Level 2.0 1.8-2.4 MG/DL Total Bilirubin 1.0 0.1-1.0 MG/DL Aspartate Amino Transf (AST/SGOT) 29 5-34 U/L Alanine Aminotransferase (ALT/SGPT) 22 0-55 U/L Alkaline Phosphatase 66 40-136 U/L Total Protein 5.7 L 6.4-8.2 GM/DL Albumin 3.6 3.2-4.5 GM/DL My Orders Orders - RYANNE EAGLE MD Cbc With Automated Diff (08/29/18 09:49) Comprehensive Metabolic Panel (08/29/18 09:49) Magnesium (08/29/18 09:49) Red Cells Leukocytes Reduced (08/29/18 09:49) Chest 1 View, Ap/Pa Only (08/29/18 09:49) Ct Head/Cervical Spine Wo (08/29/18 09:49) Type And Screen (08/29/18 09:49) Manual Differential (08/29/18 09:45) Ct Abdomen/Pelvis W (08/29/18 10:22) Iohexol Injection (Omnipaque 350 Mg/Ml 1 (08/29/18 10:30) Contrast Received (Contrast Received) (08/29/18 10:30) Ns (Ivpb) (Sodium Chloride 0.9% Ivpb Bag (08/29/18 10:30) Ondansetron Injection (Zofran Injectio (08/29/18 10:29) Ekg Tracing (08/29/18 10:59) Troponin I (08/29/18 10:59) Saline Lock/Iv-Start (08/29/18 11:00) Ns Iv 500 Ml (Sodium Chloride 0.9%) (08/29/18 11:00) Medications Given in ED Current Medications Medications Dose Ordered Sig/Hema Route Start Time Stop Time Status Last Admin Dose Admin Iohexol 75 ml ONCE ONCE IV 08/29/18 10:30 08/29/18 10:31 DC 08/29/18 10:43 75 ML Ondansetron HCl 4 mg STK-MED ONCE .ROUTE 08/29/18 10:29 08/29/18 10:31 DC 08/29/18 10:33 4 MG Sodium Chloride 100 ml ONCE ONCE IV 08/29/18 10:30 08/29/18 10:31 DC 08/29/18 10:43 80 ML Sodium Chloride 500 ml @ 0 mls/hr Q0M ONCE IV 08/29/18 11:00 08/29/18 11:01 DC 08/29/18 11:37 0 MLS/HR Vital Signs/I&O 08/29/18 10:01 Temp 97.6 Pulse 101 Resp 20 B/P (MAP) 98/60 (73) Pulse Ox 96 Blood Pressure Mean: 73 Progress Progress Note : Progress Note Seen and evaluated. IV established by EMS and second IV established. Labs including type and cross for 2 units given that she has for amount of bloody stool and bloody vomit. She is also quite pale. We will get CT the head and neck as well as the abdomen and pelvis. Chest x-ray ordered. Monitor patient. 1230: I have discussed the case with Dr. Lee. He is requesting admission to the hospitalist with consult to the surgeon. He agrees with therapy currently. Patient does have history of lymphoma but that has been stable for him. We do have 2 units of blood on hold. Patient has antibodies and was a difficult crossmatch but 2 units are available now which we will hold pending change in hemoglobin. I did discuss the case with Dr. Puente 1230 and she accepts patient for admission, inpatient status. 1254: I discussed the case with Dr. Hadley and he accepts patient for consult. Will maintain nothing by mouth status and initiate Protonix twice a day. I did update the family and patient who agree with admission. Admit inpatient status. Initial ECG Impression Date: Aug 29, 2018 Initial ECG Impression Time: 11:02 Initial ECG Rate: 96 Comment Sinus rhythm with left bundle branch block. Left axis deviation. No evidence of ST elevation AL. Similar to previous of 04/19/17. Interpreted by me. Diagnostic Imaging Diagonstic Imaging: CT Plain Films/CT/US/NM/MRI: abdomen, pelvis Comments [facility] [place] [place] NAME: SALTY MORGAN [facility] REC#: [id number] PT STATUS: REG ER : 1930 PHYSICIAN: RYANNE EAGLE MD ADMIT DATE: 08/29/18/ER Draft Date of Exam:08/29/18 CT ABDOMEN/PELVIS W INDICATION: Status post fall with abdominal pain CT of the abdomen and pelvis obtained with IV contrast bolus. Comparison made to 10/01/2008 Visualized portions of the lung bases are clear. A small hiatal hernia is present. There is no pleural fluid or free intraperitoneal air. The liver shows no focal lesion or focal injury. There is a linear lucency in the right lobe of the liver inferiorly which appears unchanged from 10/01/2008 and is compatible with developmental variant. There are surgical clips compatible with prior cholecystectomy. The spleen is absent. The adrenals and kidneys appear unremarkable. There are surgical clips in the pancreatic tail but there is no overt pancreatic mass seen. The stomach is distended with food material. Intestinal loops do not appear dilated. There are some uncomplicated sigmoid diverticula. There is no ascites or hemoperitoneum. There is no pelvic hematoma. Patient appears to have had hysterectomy. There is no acute bony abnormality. There are degenerative changes in the lumbar spine IMPRESSION: No acute traumatic abnormality in the abdomen or pelvis is seen. Patient has had previous cholecystectomy and hysterectomy. Patient also has had splenectomy. There is distention of the stomach with a large amount of retained food maternal in the stomach. Intestinal loops show no intestinal obstruction. There are uncomplicated sigmoid diverticula. There is no free fluid or abnormal fluid collection. Dictated on workstation # [id number] Dict: 08/29/18 1055 Trans: 08/29/18 1103 [facility] [id number] Interpreted by: NEYDA AGUIRRE MD Electronically signed by: Diagonstic Imaging: Xray Plain Films/CT/US/NM/MRI: chest Comments [facility] [place], [place] NAME: SALTY MORGAN [facility] REC#: [id number] PT STATUS: REG ER : 1930 PHYSICIAN: RYANNE EAGLE MD ADMIT DATE: 08/29/18/ER Draft Date of Exam:08/29/18 CHEST 1 VIEW, AP/PA ONLY PATIENT HISTORY: Bloody stools and emesis. Traumatic injuries to head and arm without recollection of fall. TECHNIQUE: Frontal view of the chest. COMPARISON: 04/19/2017 FINDINGS: The lung volumes are normal. No focal consolidation is seen. There is a small nodular density in the right lung base, which appears new since the prior exam. No large pleural effusion or pneumothorax is seen. The cardiomediastinal silhouette is normal in size and contour. No acute osseous abnormality is seen. IMPRESSION: 1. No focal consolidation seen. A small nodular density in the right lung base appears new since the prior study. Consider followup CT of the chest for further evaluation. Dictated on workstation # [id number] Dict: 08/29/18 1040 Trans: 08/29/18 1049 [facility] [id number] Interpreted by: JUAN MIGUEL KABA MD Electronically signed by: Diagonstic Imaging: CT Plain Films/CT/US/NM/MRI: c-spine, head Comments [facility] [place], [place] NAME: SALTY MORGAN [facility] REC#: [id number] PT STATUS: REG ER : 1930 PHYSICIAN: RYANNE EAGLE MD ADMIT DATE: 08/29/18/ER Draft Date of Exam:08/29/18 CT HEAD/CERVICAL SPINE WO PROCEDURE: CT head and CT cervical spine without contrast. TECHNIQUE: Multiple contiguous axial images were obtained through the brain and cervical spine without the use of intravenous contrast. Sagittal and coronal reformations through the cervical spine were then performed. INDICATION: Fall with head and neck injury. FINDINGS: CT head: Ventricles and sulci are prominent and there is low density within the deep white matter of both hemispheres. There is no evidence of hemorrhage. There is no abnormal mass effect or shift of midline structures. Calvarium is intact. There is no paranasal sinus air-fluid level. IMPRESSION: No CT evidence of acute intracranial abnormality. CT cervical spine: There is [id number] narrowing of lower cervical disc spaces and lower cervical facet joints. There is no evidence of an acute fracture or malalignment. No paraspinous hematoma is identified. 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 Dictated on workstation # [id number] Dict: 08/29/18 1047 Trans: 08/29/18 1053 [id number] Interpreted by: JUSTIN PRO MD Electronically signed by: Departure Communication (Admissions) Time/Spoke to Admitting Phy: 12:30 Time/Spoke to Consulting Phy: 12:54 Impression Primary Impression: GI bleeding Qualified Codes: K92.2 - Gastrointestinal hemorrhage, unspecified Disposition: ADMITTED INPATIENT Condition: Stable Admissions Decision to Admit Reason: Admit from ER (General) Decision to Admit/Date: Aug 29, 2018 Time/Decision to Admit Time: 12:30 Departure-Patient Inst. Referrals: JACOBY LEE MD (PCP/Family) Primary Care Physician RYANNE EAGLE MD Aug 29, 2018 10:30
--- NOTE | 2018-08-29 10:49 | Diagnostic Imaging Report ---
PATIENT HISTORY: Bloody stools and emesis. Traumatic injuries to head and arm without recollection of fall. TECHNIQUE: Frontal view of the chest. COMPARISON: 04/19/2017 FINDINGS: The lung volumes are normal. No focal consolidation is seen. There is a small nodular density in the right lung base, which appears new since the prior exam. No large pleural effusion or pneumothorax is seen. The cardiomediastinal silhouette is normal in size and contour. No acute osseous abnormality is seen. IMPRESSION: 1. No focal consolidation seen. A small nodular density in the right lung base appears new since the prior study. Consider followup CT of the chest for further evaluation. Dictated by: Dictated on workstation # [id number]
--- NOTE | 2018-08-29 10:54 | Diagnostic Imaging Report ---
PROCEDURE: CT head and CT cervical spine without contrast. TECHNIQUE: Multiple contiguous axial images were obtained through the brain and cervical spine without the use of intravenous contrast. Sagittal and coronal reformations through the cervical spine were then performed. INDICATION: Fall with head and neck injury. FINDINGS: CT head: Ventricles and sulci are prominent and there is low density within the deep white matter of both hemispheres. There is no evidence of hemorrhage. There is no abnormal mass effect or shift of midline structures. Calvarium is intact. There is no paranasal sinus air-fluid level. IMPRESSION: No CT evidence of acute intracranial abnormality. CT cervical spine: There is [id number] narrowing of lower cervical disc spaces and lower cervical facet joints. There is no evidence of an acute fracture or malalignment. No paraspinous hematoma is identified. 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 Dictated by: Dictated on workstation # [id number]
[2018-08-29] MEDS ORDERED: NS IV 500 ML 500 ML IV ONE (11:00)
--- NOTE | 2018-08-29 11:03 | Diagnostic Imaging Report ---
INDICATION: Status post fall with abdominal pain CT of the abdomen and pelvis obtained with IV contrast bolus. Comparison made to 10/01/2008 Visualized portions of the lung bases are clear. A small hiatal hernia is present. There is no pleural fluid or free intraperitoneal air. The liver shows no focal lesion or focal injury. There is a linear lucency in the right lobe of the liver inferiorly which appears unchanged from 10/01/2008 and is compatible with developmental variant. There are surgical clips compatible with prior cholecystectomy. The spleen is absent. The adrenals and kidneys appear unremarkable. There are surgical clips in the pancreatic tail but there is no overt pancreatic mass seen. The stomach is distended with food material. Intestinal loops do not appear dilated. There are some uncomplicated sigmoid diverticula. There is no ascites or hemoperitoneum. There is no pelvic hematoma. Patient appears to have had hysterectomy. There is no acute bony abnormality. There are degenerative changes in the lumbar spine IMPRESSION: No acute traumatic abnormality in the abdomen or pelvis is seen. Patient has had previous cholecystectomy and hysterectomy. Patient also has had splenectomy. There is distention of the stomach with a large amount of retained food maternal in the stomach. Intestinal loops show no intestinal obstruction. There are uncomplicated sigmoid diverticula. There is no free fluid or abnormal fluid collection. Dictated by: Dictated on workstation # [id number]
--- OUTSIDE RECORDS SUMMARY | 2018-08-29 12:48 | XMS REPORT | Clinical Summary ---
Author Author [facility] Organization [facility] Address Unknown Phone Unavailable Care Team Providers Care Floorleader Name Role Phone Andrea Lee MD PCP Allergies Active Allergy Reactions Severity Noted Date Comments Penicillins 12/15/2017 Sulfa (Sulfonamide 12/15/2017 Antibiotics) Current Medications Not on file Active Problems Not on file Immunizations Name Dates Previously Given Next Due Tdap 12/15/2017 Social History Tobacco Use Types Packs/Day Years Used Date Never Smoker Smokeless Tobacco: Never Used Alcohol Use Drinks/Week oz/Week Comments No Sex Assigned at Date Recorded Not on file Last Filed Vital Signs Vital Sign Reading Time Taken Blood Pressure - - Pulse 94 12/15/2017 10:30 PM CDT Temperature 36.7 C (98.1 F) 12/15/2017 10:30 PM CDT Respiratory Rate 16 12/15/2017 10:30 PM CDT Oxygen Saturation 96% 12/15/2017 10:30 PM CDT Inhaled Oxygen - - Concentration Weight - - Height - - Body Mass Index - - Plan of Treatment Health Maintenance Due Date Last Done Comments Medicare Annual Wellness 1930 Zoster Vaccine# (1 of 2) 1982 Depression Screening 1997 PHQ-9 # Osteoporosis Screening 1997 Pneumococcal Immunization 1997 65+ (1 of 2 - PCV13) Influenza Vaccine (#1) 2018 Fall Risk Assessment # 12/15/2018 12/15/2017 Td # 12/16/2027 12/15/2017 Results Not on filefrom Last 3 Months
--- OUTSIDE RECORDS SUMMARY | 2018-08-29 12:48 | XMS REPORT ---
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
--- OUTSIDE RECORDS SUMMARY | 2018-08-29 12:50 | XMS REPORT | Continuity of Care Document ---
Author Author [facility] Organization [facility] Address Unknown Phone Unavailable Allergies Active Description Code Type Severity Reaction Onset Reported/Identified Relationship to Patient Clinical Status Yes clindamycin [id number] Drug Allergy Unknown N/A 04/19/2017 Yes Penicillins [id number] Drug Allergy Unknown N/A 04/19/2017 Yes Sulfa (Sulfonamide Antibiotics) [id number] Drug Allergy Unknown N/A 2016 Medications There is no data. 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 08/17/1047 JORJE CLARKE MD Ot D80.1 NONFAMILIAL HYPOGAMMAGLOBULINEMIA 08/17/1047 JORJE CLARKE MD Ot Z79.899 OTHER SENIOR CARE (CURRENT) DRUG THERAPY 04/28/2010 Ot 204.10 04/28/2010 Ot 283.9 09/20/2010 Ot 204.10 09/20/2010 Ot 283.9 09/20/2010 Ot V04.81 12/20/2010 Ot 204.10 12/20/2010 Ot V58.11 03/22/2011 Ot 202.80 03/22/2011 Ot 204.10 03/22/2011 Ot 283.9 03/22/2011 Ot V17.49 03/22/2011 Ot V58.69 03/22/2011 Ot V77.91 03/22/2011 Ot V87.41 03/28/2011 Ot 214.3 03/28/2011 Ot 562.10 03/28/2011 Ot V12.72 03/28/2011 Ot V76.51 02/20/2012 Ot 202.80 OTH LYMPHOMAS EXTRANODAL SOLID ORGAN U 02/20/2012 Ot 204.10 CHRONIC LYMPHOID LEUKEMIA, W/O MENTION A 02/20/2012 Ot 279.00 HYPOGAMMAGLOBULINEM NOS 02/20/2012 Ot V58.11 ENCOUNTER FOR ANTINEOPLASTIC CHEMOTHERAP 02/20/2012 Ot V58.69 OTH MED,LT, CURRENT USE 02/20/2012 Ot V87.41 PERSONAL HISTORY OF ANTINEOPLASTIC CHEMO 06/05/2012 Ot 202.80 OTH LYMPHOMAS EXTRANODAL SOLID ORGAN U 06/05/2012 Ot 279.00 HYPOGAMMAGLOBULINEM NOS 06/05/2012 Ot V58.11 ENCOUNTER FOR ANTINEOPLASTIC CHEMOTHERAP 06/05/2012 Ot V58.69 OTH MED,LT, CURRENT USE 09/04/2012 Ot 202.80 OTH LYMPHOMAS EXTRANODAL SOLID ORGAN U 09/04/2012 Ot 279.00 HYPOGAMMAGLOBULINEM NOS 09/04/2012 Ot V58.11 ENCOUNTER FOR ANTINEOPLASTIC CHEMOTHERAP 09/04/2012 Ot V58.69 OTH MED,LT, CURRENT USE 12/24/2012 Ot 202.80 OTH LYMPHOMAS EXTRANODAL SOLID ORGAN U 12/24/2012 Ot 279.00 HYPOGAMMAGLOBULINEM NOS 12/24/2012 Ot V58.11 ENCOUNTER FOR ANTINEOPLASTIC CHEMOTHERAP 12/24/2012 Ot V58.69 OTH MED,LT, CURRENT USE 04/15/2013 JORJE CLARKE MD Ot 202.80 OTH LYMPHOMAS EXTRANODAL SOLID ORGAN U 04/15/2013 JORJE CLARKE MD Ot 279.00 HYPOGAMMAGLOBULINEM NOS 04/15/2013 JORJE CLARKE MD Ot V58.11 ENCOUNTER FOR ANTINEOPLASTIC CHEMOTHERAP 04/15/2013 JORJE CLARKE MD Ot V58.69 OTH MED,LT,CURRENT USE 07/25/2013 JORJE CLARKE MD Ot 202.80 OTH LYMPHOMAS EXTRANODAL SOLID ORGAN U 07/25/2013 JORJE CLARKE MD Ot 279.00 HYPOGAMMAGLOBULINEM NOS 07/25/2013 JORJE CLARKE MD Ot V58.69 OTH MED,LT,CURRENT USE 10/28/2013 JORJE CLARKE MD Ot 202.80 OTH LYMPHOMAS EXTRANODAL SOLID ORGAN U 10/28/2013 JORJE CLARKE MD Ot 279.00 HYPOGAMMAGLOBULINEM NOS 10/28/2013 JORJE CLARKE MD Ot V58.11 ENCOUNTER FOR ANTINEOPLASTIC CHEMOTHERAP 10/28/2013 JORJE CLARKE MD Ot V58.69 OTH MED,LT,CURRENT USE 03/31/2014 TRICIA ARNETT, JORJE Ot 202.80 OTH LYMPHOMAS EXTRANODAL SOLID ORGAN U 03/31/2014 TRICIA ARNETT, JORJE Ot 279.00 HYPOGAMMAGLOBULINEM NOS 03/31/2014 TRICIA ARNETT, JORJE Ot V58.11 ENCOUNTER FOR ANTINEOPLASTIC CHEMOTHERAP 03/31/2014 TRICIA ARNETT, JORJE Ot V58.69 OTH MED,LT,CURRENT USE 08/01/2014 TRICIA ARNETT, YULIANA-JONATAN Ot 202.80 08/01/2014 TRICIA ARNETT, JORJE Ot 279.00 08/01/2014 TRICIA ARNETT, YULIANA-JONATAN Ot V58.69 08/24/2014 TRICIA ARNETT, YULIANA-JONATAN Ot 202.80 OTH LYMPHOMAS EXTRANODAL SOLID ORGAN U 08/24/2014 TRICIA ARNETT, JORJE Ot 279.00 HYPOGAMMAGLOBULINEM NOS 08/24/2014 TRICIA ARNETT, JORJE Ot V58.69 OTH MED,LT,CURRENT USE 10/20/2014 TRICIA ARNETT, YULIANA-JONATAN Ot 202.80 10/20/2014 TRICIA ARNETT, YULIANA-JONATAN Ot 279.00 10/20/2014 TRICIA ARNETT, YULIANA-JONATAN Ot V58.69 10/27/2014 TRICIA ARNETT, YULIANA-JONATAN Ot 202.80 10/27/2014 TRICIA ARNETT, YULIANA-JONATAN Ot 279.00 10/27/2014 TRICIA ARNETT, YULIANA-JONATAN Ot V58.69 10/27/2014 TRICIA ARNETT, YULIANA-JONATAN Ot 202.80 10/27/2014 TRICIA ARNETT, YULIANA-JONATAN Ot 279.00 10/27/2014 TRICIA ARNETT, YULIANA-JONATAN Ot V58.69 10/28/2014 TRICIA ARNETT, BRIDGES-JONATAN Ot 202.80 10/28/2014 TRICIA ARNETT, YULIANA-JONATAN Ot 279.00 10/28/2014 TRICIA ARNETT, YULIANA-JONATAN Ot V58.11 10/28/2014 TRICIA ARNETT, YULIANA-JONATAN Ot V58.69 01/14/2015 TRICIA ARNETT, YULIANA-JONATAN Ot 202.80 01/14/2015 TRICIA ARNETT, YULIANA-JONATAN Ot 279.00 01/14/2015 TRICIA ARNETT, YULIANA-JONATAN Ot V58.11 01/14/2015 TRICIA ARNETT, BRIDGES-JONATAN Ot V58.69 01/25/2015 TRICIA ARNETT, BRIDGES-JONATAN Ot 202.80 OTH LYMPHOMAS EXTRANODAL SOLID ORGAN U 01/25/2015 TRICIA ARNETT, YULIANA-JONATAN Ot 279.00 HYPOGAMMAGLOBULINEM NOS 01/25/2015 TRICIA ARNETT, JORJE Ot V58.11 ENCOUNTER FOR ANTINEOPLASTIC CHEMOTHERAP 01/25/2015 TRICIA ARNETT, JORJE Ot V58.69 OTH MED,LT,CURRENT USE 02/17/2015 TRICIA ARNETT, BRIDGES-JONATAN Ot 202.80 02/17/2015 TRICIA ARNETT, YULIANA-JONATAN Ot 279.00 02/17/2015 TRICIA ARNETT, YULIANA-JONATAN Ot V58.11 02/17/2015 TRICIA ARNETT, BRIDGES-JONATAN Ot V58.69 02/23/2015 TRICIA ARNETT, BRIDGES-JONATAN Ot 202.80 02/23/2015 TRICIA ARNETT, YULIANA-JONATAN Ot 279.00 02/23/2015 TRICIA ARNETT, YULIANA-JONATAN Ot V58.11 02/23/2015 TRICIA ARNETT, YULIANA-JONATAN Ot V58.69 02/24/2015 TRICIA ARNETT, YULIANA-JONATAN Ot 202.80 02/24/2015 TRICIA ARNETT, YULIANA-JONATAN Ot 279.00 02/24/2015 TRICIA ARNETT, YULIANA-JONATAN Ot V58.11 02/24/2015 TRICIA ARNETT, YULIANA-JONATAN Ot V58.69 04/10/2015 TRICIA ARNETT, YULIANA-JONATAN Ot 202.80 04/10/2015 TRICIA ARNETT, UYLIANA-JONATAN Ot 279.00 04/10/2015 TRICIA ARNETT, YULIANA-JONATAN Ot V58.11 04/10/2015 TRICIA ARNETT, YULIANA-JONATAN Ot V58.69 04/16/2015 TRICIA ARNETT, YULIANA-JONATAN Ot 202.80 04/16/2015 TRICIA ARNETT, YULIANA-JONATAN Ot 279.00 04/16/2015 TRICIA ARNETT, YULIANA-JONATAN Ot V58.11 04/16/2015 TRICIA ARNETT, YULIANA-JONATAN Ot V58.69 05/24/2015 TRICIA ARNETT, JORJE Ot 202.80 OTH LYMPHOMAS EXTRANODAL SOLID ORGAN U 05/24/2015 TRICIA ARNETT, JORJE Ot 279.00 HYPOGAMMAGLOBULINEM NOS 05/24/2015 TRICIA ARNETT, YULIANA-JONATAN Ot V58.11 05/24/2015 TRICIA ARNETT, YULIANA-JONATAN Ot V58.69 [facility] 06/15/2015 TRICIA ARNETT, YULIANA-JONATAN Ot 202.80 06/15/2015 TRICIA ARNETT, YULIANA-JONATAN Ot 279.00 06/15/2015 TRICIA ARNETT, YULIANA-JONATAN Ot V58.11 06/15/2015 TRICIA ARNETT, YULIANA-JONATAN Ot V58.69 07/22/2015 TRICIA ARNETT, YULIANA-JONATAN Ot R05 07/22/2015 TRICIA ARNETT, YULIANA-JONATAN Ot R05 07/22/2015 TRICIA ARNETT, YULIANA-JONATAN Ot R05 07/22/2015 TRICIA ARNETT, YULIANA-JONATAN Ot R05 07/22/2015 TRICIA ARNETT, YULIANA-JONATAN Ot R05 07/27/2015 TRICIA ARNETT, YULIANA-JONATAN Ot 202.80 07/27/2015 TRICIA ARNETT, YULIANA-JONATAN Ot 279.00 07/27/2015 TRICIA ARNETT, YULIANA-JONATAN Ot V58.11 07/27/2015 TRICIA ARNETT, YULIANA-JONATAN Ot V58.69 08/17/2015 TRICIA ARNETT, YULIANA-JONATAN Ot R05 08/17/2015 TRICIA ARNETT, YULIANA-JONATAN Ot C85.80 08/17/2015 TRICIA ARNETT, YULIANA-JONATAN Ot D80.1 08/17/2015 TRICIA ARNETT, YULIANA-JONATAN Ot Z51.11 08/17/2015 TRICIA ARNETT, YULIANA-JONATAN Ot Z79.899 08/18/2015 Ot 202.80 08/18/2015 Ot V76.12 08/18/2015 Ot V17.49 08/18/2015 Ot V77.91 08/18/2015 Ot 202.80 08/18/2015 Ot 204.10 08/18/2015 Ot V87.41 08/18/2015 Ot 202.80 08/18/2015 Ot 682.6 08/18/2015 Ot V03.82 08/18/2015 Ot V87.41 08/18/2015 Ot 202.80 08/18/2015 Ot 279.00 08/18/2015 Ot 465.9 08/18/2015 Ot V87.41 08/18/2015 Ot 793.89 08/18/2015 Ot V76.12 08/18/2015 Ot 204.10 08/18/2015 Ot 283.0 08/18/2015 Ot V58.69 08/18/2015 Ot 174.9 08/18/2015 Ot 793.80 08/18/2015 Ot 793.89 08/18/2015 TRICIA ARNETT, JORJE Ot V76.12 08/18/2015 TRICIA ARNETT, JORJE Ot C85.80 08/18/2015 TRICIA ARNETT, JORJE Ot D80.1 08/18/2015 TRICIA ARNETT, OJRJE Ot Z51.11 08/18/2015 TRICIA ARNETT, JORJE Ot Z79.899 08/18/2015 TRICIA ARNETT, JORJE Ot R05 08/20/2015 TRICIA ARNETT, JORJE Ot R05 08/20/2015 TRICIA ARNETT, JORJE Ot C85.80 08/20/2015 TRICIA ARNETT, JORJE Ot D80.1 08/20/2015 TRICIA ARNETT, JORJE Ot Z51.11 08/20/2015 TRICIA ARNETT, JORJE Ot Z79.899 09/15/2015 TRICIA ARNETT, JORJE Ot Z12.31 09/20/2015 TRICIA ARNETT, JORJE Ot C85.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, UNSPE 09/20/2015 TRICIA ARNETT, JORJE Ot D80.1 NONFAMILIAL HYPOGAMMAGLOBULINEMIA 09/20/2015 TRICIA ARNETT, JORJE Ot Z51.11 ENCOUNTER FOR ANTINEOPLASTIC CHEMOTHERAP 09/20/2015 TRICIA ARNETT, JORJE Ot Z79.899 OTHER SENIOR CARE (CURRENT) DRUG THERAPY 10/12/2015 TRICIA ARNETT, JORJE Ot C85.80 10/12/2015 TRICIA ARNETT, JORJE Ot D80.1 10/12/2015 TRICIA ARNETT, JORJE Ot Z51.11 10/12/2015 TRICIA ARNETT, JORJE Ot Z79.899 10/19/2015 TRICIA ARNETT, JORJE Ot C85.80 10/19/2015 TRICIA ARNETT, JORJE Ot D80.1 10/19/2015 TRICIA ARNETT, JORJE Ot Z51.11 10/19/2015 TRICIA ARNETT, JORJE Ot Z79.899 01/06/2016 TRICIA ARNETT, JORJE Ot 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 01/06/2016 JORJE CLARKE MD Ot D80.1 NONFAMILIAL HYPOGAMMAGLOBULINEMIA 01/06/2016 JORJE CLARKE MD Ot Z51.11 ENCOUNTER FOR ANTINEOPLASTIC CHEMOTHERAP 01/06/2016 JORJE CLARKE MD Ot Z79.899 OTHER SENIOR CARE (CURRENT) DRUG THERAPY 01/14/2016 JORJE CLARKE MD, Ot 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 01/14/2016 JORJE CLARKE MD Ot D80.1 NONFAMILIAL HYPOGAMMAGLOBULINEMIA 01/14/2016 JORJE CLARKE MD Ot Z51.11 ENCOUNTER FOR ANTINEOPLASTIC CHEMOTHERAP 01/14/2016 JORJE CLARKE MD Ot Z79.899 OTHER RAW SILK GRADER (CURRENT) DRUG THERAPY 01/15/2016 JORJE CLARKE MD, Ot 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 01/15/2016 JORJE CLARKE MD Ot D80.1 NONFAMILIAL HYPOGAMMAGLOBULINEMIA 01/15/2016 JORJE CLARKE MD Ot Z51.11 ENCOUNTER FOR ANTINEOPLASTIC CHEMOTHERAP 01/15/2016 JORJE CLARKE MD Ot Z79.899 OTHER SENIOR CARE (CURRENT) DRUG THERAPY 03/28/2016 JORJE CLARKE MD, Ot 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 03/28/2016 JORJE CLARKE MD Ot D80.1 NONFAMILIAL HYPOGAMMAGLOBULINEMIA 03/28/2016 JORJE CLARKE MD Ot Z51.11 ENCOUNTER FOR ANTINEOPLASTIC CHEMOTHERAP 03/28/2016 JORJE CLARKE MD Ot Z79.899 OTHER SENIOR CARE (CURRENT) DRUG THERAPY 04/17/2016 JORJE CLARKE MD Ot 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 04/17/2016 JORJE CLARKE MD Ot D80.1 NONFAMILIAL HYPOGAMMAGLOBULINEMIA 04/17/2016 JORJE CLARKE MD Ot Z51.11 ENCOUNTER FOR ANTINEOPLASTIC CHEMOTHERAP 04/17/2016 JORJE CLARKE MD Ot Z79.899 OTHER RAW SILK GRADER (CURRENT) DRUG THERAPY 04/18/2016 Ot V17.49 FAMILY HISTORY OF OTHER CARDIOVASCULAR D 04/18/2016 Ot V77.91 SCREEN LIPOID DISORDERS 08/17/2016 JORJE CLARKE MD, Ot 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 08/17/2016 JORJE CLARKE MD Ot D80.1 NONFAMILIAL HYPOGAMMAGLOBULINEMIA 08/17/2016 JORJE CLARKE MD Ot Z51.11 ENCOUNTER FOR ANTINEOPLASTIC CHEMOTHERAP 08/17/2016 JORJE CLARKE MD Ot Z79.899 OTHER RAW SILK GRADER (CURRENT) DRUG THERAPY 08/17/2016 JORJE CLARKE MD, Ot 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 08/17/2016 JORJE CLARKE MD, Ot D80.1 NONFAMILIAL HYPOGAMMAGLOBULINEMIA 08/17/2016 JORJE CLARKE MD, Ot Z51.11 ENCOUNTER FOR ANTINEOPLASTIC CHEMOTHERAP 08/17/2016 JORJE CLARKE MD, Ot Z79.899 OTHER RAW SILK GRADER (CURRENT) DRUG THERAPY 09/18/2016 Ot 793.80 UNSPEC ABNORMAL MAMMOGRAM 09/26/2016 JORJE CLARKE MD, Ot 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 09/26/2016 JORJE CLARKE MD Ot D80.1 NONFAMILIAL HYPOGAMMAGLOBULINEMIA 09/26/2016 JORJE CLARKE MD Ot Z51.11 ENCOUNTER FOR ANTINEOPLASTIC CHEMOTHERAP 09/26/2016 JORJE CLARKE MD Ot Z79.899 OTHER RAW SILK GRADER (CURRENT) DRUG THERAPY 09/27/2016 JORJE CLARKE MD, Ot 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 09/27/2016 JORJE CLARKE MD Ot D80.1 NONFAMILIAL HYPOGAMMAGLOBULINEMIA 09/27/2016 JORJE CLARKE MD Ot Z51.11 ENCOUNTER FOR ANTINEOPLASTIC CHEMOTHERAP 09/27/2016 JORJE CLARKE MD Ot Z79.899 OTHER SENIOR CARE (CURRENT) DRUG THERAPY 10/17/2016 JORJE CLARKE MD, Ot 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 10/17/2016 JORJE CLARKE MD Ot D80.1 NONFAMILIAL HYPOGAMMAGLOBULINEMIA 10/17/2016 JORJE CLARKE MD Ot Z51.11 ENCOUNTER FOR ANTINEOPLASTIC CHEMOTHERAP 10/17/2016 JORJE CLARKE MD Ot Z79.899 OTHER RAW SILK GRADER (CURRENT) DRUG THERAPY 10/18/2016 JORJE CLARKE MD Ot 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 10/18/2016 JORJE CLARKE MD Ot D80.1 NONFAMILIAL HYPOGAMMAGLOBULINEMIA 10/18/2016 JORJE CLARKE MD Ot Z51.11 ENCOUNTER FOR ANTINEOPLASTIC CHEMOTHERAP 10/18/2016 JORJE CLARKE MD Ot Z79.899 OTHER RAW SILK GRADER (CURRENT) DRUG THERAPY 10/27/2016 JORJE CLARKE MD, Ot 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 10/27/2016 JORJE CLARKE MD Ot D80.1 NONFAMILIAL HYPOGAMMAGLOBULINEMIA 10/27/2016 JORJE CLARKE MD Ot Z51.11 ENCOUNTER FOR ANTINEOPLASTIC CHEMOTHERAP 10/27/2016 JORJE CLARKE MD, Ot Z79.899 OTHER SENIOR CARE (CURRENT) DRUG THERAPY 11/15/2016 JORJE CLARKE MD, Ot 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 11/15/2016 JORJE CLARKE MD Ot D80.1 NONFAMILIAL HYPOGAMMAGLOBULINEMIA 11/15/2016 JORJE CLARKE MD Ot Z51.11 ENCOUNTER FOR ANTINEOPLASTIC CHEMOTHERAP 11/15/2016 JORJE CLARKE MD Ot Z79.899 OTHER RAW SILK GRADER (CURRENT) DRUG THERAPY 11/25/2016 JORJE CLARKE MD Ot 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 11/25/2016 JORJE CLARKE MD Ot D80.1 NONFAMILIAL HYPOGAMMAGLOBULINEMIA 11/25/2016 JORJE CLARKE MD Ot Z51.11 ENCOUNTER FOR ANTINEOPLASTIC CHEMOTHERAP 11/25/2016 JORJE CLARKE MD Ot Z79.899 OTHER SENIOR CARE (CURRENT) DRUG THERAPY 01/16/2017 JORJE CLARKE MD, Ot 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 01/16/2017 JORJE CLARKE MD Ot D80.1 NONFAMILIAL HYPOGAMMAGLOBULINEMIA 01/16/2017 JORJE CLARKE MD Ot Z51.11 ENCOUNTER FOR ANTINEOPLASTIC CHEMOTHERAP 01/16/2017 JORJE CLARKE MD Ot Z79.899 OTHER SENIOR CARE (CURRENT) DRUG THERAPY 02/07/2017 JORJE CLARKE MD Ot 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 02/07/2017 JORJE CLARKE MD Ot D80.1 NONFAMILIAL HYPOGAMMAGLOBULINEMIA 02/07/2017 JORJE CLARKE MD Ot Z51.11 ENCOUNTER FOR ANTINEOPLASTIC CHEMOTHERAP 02/07/2017 JORJE CLARKE MD Ot Z79.899 OTHER SENIOR CARE (CURRENT) DRUG THERAPY 02/16/2017 Ot 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 02/21/2017 JORJE CLARKE MD, Ot 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 02/21/2017 JORJE CLARKE MD Ot D80.1 NONFAMILIAL HYPOGAMMAGLOBULINEMIA 02/21/2017 JORJE CLARKE MD Ot Z51.11 ENCOUNTER FOR ANTINEOPLASTIC CHEMOTHERAP 02/21/2017 JORJE CLARKE MD Ot Z79.899 OTHER SENIOR CARE (CURRENT) DRUG THERAPY 03/17/2017 JORJE CLARKE MD, Ot 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 03/17/2017 JORJE CLARKE MD Ot D80.1 NONFAMILIAL HYPOGAMMAGLOBULINEMIA 03/17/2017 JORJE CLARKE MD Ot Z51.11 ENCOUNTER FOR ANTINEOPLASTIC CHEMOTHERAP 03/17/2017 JORJE CLARKE MD Ot Z79.899 OTHER RAW SILK GRADER (CURRENT) DRUG THERAPY 03/27/2017 JORJE CLARKE MD, Ot 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 03/27/2017 JORJE CLARKE MD Ot D80.1 NONFAMILIAL HYPOGAMMAGLOBULINEMIA 03/27/2017 JORJE CLARKE MD Ot Z51.11 ENCOUNTER FOR ANTINEOPLASTIC CHEMOTHERAP 03/27/2017 JORJE CLARKE MD Ot Z79.899 OTHER SENIOR CARE (CURRENT) DRUG THERAPY 03/27/2017 JORJE CLARKE MD Ot 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 03/27/2017 JORJE CLARKE MD Ot D80.1 NONFAMILIAL HYPOGAMMAGLOBULINEMIA 03/27/2017 JORJE CLARKE MD, Ot Z51.11 ENCOUNTER FOR ANTINEOPLASTIC CHEMOTHERAP 03/27/2017 JORJE CLARKE MD Ot Z79.899 OTHER RAW SILK GRADER (CURRENT) DRUG THERAPY 04/19/2017 Ot 793.89 OTH (ABN) FINDINGS ON RADIOLOGICAL EXAMI 04/19/2017 Ot V76.12 OTH SCREEN MAMMO-MALIGN NEOPLASM OF CLAUDETTE 04/19/2017 Ot 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 04/19/2017 Ot 793.80 UNSPEC ABNORMAL MAMMOGRAM 04/19/2017 Ot 793.89 OTH (ABN) FINDINGS ON RADIOLOGICAL EXAMI 04/19/2017 JORJE CLARKE MD Ot V76.12 OTH SCREEN MAMMO-MALIGN NEOPLASM OF CLAUDETTE 04/19/2017 JORJE CLARKE MD Ot Z12.31 ENCNTR SCREEN MAMMOGRAM FOR MALIGNANT NE 04/19/2017 JORJE CLARKE MD Ot R05 COUGH 04/19/2017 JORJE CLARKE MD Ot 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 04/19/2017 JORJE CLARKE MD Ot D80.1 NONFAMILIAL HYPOGAMMAGLOBULINEMIA 04/19/2017 JORJE CLARKE MD Ot Z51.11 ENCOUNTER FOR ANTINEOPLASTIC CHEMOTHERAP 04/19/2017 JORJE CLARKE MD Ot Z79.899 OTHER RAW SILK GRADER (CURRENT) DRUG THERAPY 04/20/2017 EDUARDO ROSADO DO Ot C85.90 NON-HODGKIN LYMPHOMA, UNSPECIFIED, UNSPE 04/20/2017 EDUARDO ROSADO DO Ot 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 04/20/2017 EDUARDO ROSADO DO Ot D80.1 NONFAMILIAL HYPOGAMMAGLOBULINEMIA 04/20/2017 DERECK ROSADO DOI Ot E86.0 DEHYDRATION 04/20/2017 DERECK ROSADO DOI Ot H91.93 UNSPECIFIED HEARING LOSS, BILATERAL 04/20/2017 DERECK ROSADO DOI Ot I44.7 LEFT BUNDLE-BRANCH BLOCK, UNSPECIFIED 04/20/2017 DERECK ROSADO DOI Ot J30.2 OTHER SEASONAL ALLERGIC RHINITIS 04/20/2017 ALONZO HOUSTON EDUARDO Ot M19.91 PRIMARY OSTEOARTHRITIS, UNSPECIFIED SITE 04/20/2017 EDUARDO ROSADO DO Ot N39.0 URINARY TRACT INFECTION, SITE NOT SPECIF 04/20/2017 ROSADO DO EDUARDO Ot R11.0 NAUSEA 04/20/2017 ROSADO DO, EDUARDO Ot R19.7 DIARRHEA, UNSPECIFIED 04/20/2017 ROSADO DO EDUARDO Ot S51.012A LACERATION WITHOUT FOREIGN BODY OF LEFT 04/20/2017 ROSADO DO EDUARDO Ot S80.11XA CONTUSION OF RIGHT LOWER LEG, INITIAL EN 04/20/2017 ROSADO DO EDUARDO Ot S81.811A LACERATION W/O FOREIGN BODY, RIGHT LOWER 04/20/2017 ROSADO DO EDUARDO Ot T67.5XXA HEAT EXHAUSTION, UNSPECIFIED, INITIAL EN 04/20/2017 ROSADO DO EDUARDO Ot W18.30XA FALL ON SAME LEVEL, UNSPECIFIED, INITIAL 04/20/2017 ROSADO DO EDUARDO Ot Y92.[address] IN [facility] NON-[facility] (PRIVATE) 04/20/2017 ROSADOLORENA HOUSTON EDUARDO Ot Z66 DO NOT RESUSCITATE 04/20/2017 ROSADOLORENA HOUSTON EDUARDO Ot Z79.899 OTHER RAW SILK GRADER (CURRENT) DRUG THERAPY 04/26/2017 JACOBY SCHWAB MD Ot N39.0 URINARY TRACT INFECTION, SITE NOT SPECIF 05/08/2017 JORJE CLARKE MD, Ot 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 05/08/2017 JORJE CLARKE MD Ot D80.1 NONFAMILIAL HYPOGAMMAGLOBULINEMIA 05/08/2017 JORJE CLARKE MD Ot Z51.11 ENCOUNTER FOR ANTINEOPLASTIC CHEMOTHERAP 05/08/2017 JORJE CLARKE MD, Ot Z79.899 OTHER SENIOR CARE (CURRENT) DRUG THERAPY 05/17/2017 JACOBY SCHWAB MD Ot N39.0 URINARY TRACT INFECTION, SITE NOT SPECIF 06/17/2017 JORJE CLARKE MD, Ot 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 06/17/2017 JORJE CLARKE MD Ot D80.1 NONFAMILIAL HYPOGAMMAGLOBULINEMIA 06/17/2017 JORJE CLARKE MD Ot Z51.11 ENCOUNTER FOR ANTINEOPLASTIC CHEMOTHERAP 06/17/2017 JORJE CLARKE MD, Ot Z79.899 OTHER SENIOR CARE (CURRENT) DRUG THERAPY 06/21/2017 JORJE CLARKE MD Ot 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 06/21/2017 JORJE CLARKE MD Ot D80.1 NONFAMILIAL HYPOGAMMAGLOBULINEMIA 06/21/2017 JORJE CLARKE MD Ot Z51.11 ENCOUNTER FOR ANTINEOPLASTIC CHEMOTHERAP 06/21/2017 JORJE CLARKE MD Ot Z79.899 OTHER RAW SILK GRADER (CURRENT) DRUG THERAPY 07/06/2017 JORJE CLARKE MD, Ot 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 07/06/2017 JORJE CLARKE MD Ot D80.1 NONFAMILIAL HYPOGAMMAGLOBULINEMIA 07/06/2017 JORJE CLARKE MD Ot Z79.899 OTHER RAW SILK GRADER (CURRENT) DRUG THERAPY 07/24/2017 JORJE CLARKE MD, Ot 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 07/24/2017 JORJE CLARKE MD Ot D80.1 NONFAMILIAL HYPOGAMMAGLOBULINEMIA 07/24/2017 JORJE CLARKE MD Ot Z79.899 OTHER RAW SILK GRADER (CURRENT) DRUG THERAPY 08/14/2017 JORJE CLARKE MD Ot 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 08/14/2017 JORJE CLARKE MD Ot D80.1 NONFAMILIAL HYPOGAMMAGLOBULINEMIA 08/14/2017 JORJE CLARKE MD Ot Z79.899 OTHER RAW SILK GRADER (CURRENT) DRUG THERAPY 08/17/2017 JORJE CLARKE MD Ot 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 08/17/2017 JORJE CLARKE MD Ot D80.1 NONFAMILIAL HYPOGAMMAGLOBULINEMIA 08/17/2017 JORJE CLARKE MD Ot Z79.899 OTHER RAW SILK GRADER (CURRENT) DRUG THERAPY 09/24/2017 JORJE CLARKE MD Ot 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 09/24/2017 JORJE CLARKE MD Ot D80.1 NONFAMILIAL HYPOGAMMAGLOBULINEMIA 09/24/2017 JORJE CLARKE MD Ot Z79.899 OTHER RAW SILK GRADER (CURRENT) DRUG THERAPY 09/25/2017 JORJE CLARKE MD Ot 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 09/25/2017 JORJE CLARKE MD Ot D80.1 NONFAMILIAL HYPOGAMMAGLOBULINEMIA 09/25/2017 JORJE CLARKE MD Ot Z79.899 OTHER RAW SILK GRADER (CURRENT) DRUG THERAPY 09/30/2017 JORJE CLARKE MD Ot 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 09/30/2017 JORJE CLARKE MD Ot D80.1 NONFAMILIAL HYPOGAMMAGLOBULINEMIA 09/30/2017 JORJE CLARKE MD Ot Z79.899 OTHER RAW SILK GRADER (CURRENT) DRUG THERAPY 10/17/2017 JORJE CLARKE MD Ot 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 10/17/2017 JORJE CLARKE MD Ot D80.1 NONFAMILIAL HYPOGAMMAGLOBULINEMIA 10/17/2017 JORJE CLARKE MD Ot Z79.899 OTHER SENIOR CARE (CURRENT) DRUG THERAPY 11/10/2017 JORJE CLARKE MD Ot 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 11/10/2017 JORJE CLARKE MD Ot D80.1 NONFAMILIAL HYPOGAMMAGLOBULINEMIA 11/10/2017 JORJE CLARKE MD Ot Z79.899 OTHER SENIOR CARE (CURRENT) DRUG THERAPY 01/10/2018 JORJE CLARKE MD Ot 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 01/10/2018 JORJE CLARKE MD Ot D80.1 NONFAMILIAL HYPOGAMMAGLOBULINEMIA 01/10/2018 JORJE CLARKE MD Ot Z79.899 OTHER RAW SILK GRADER (CURRENT) DRUG THERAPY 01/14/2018 JORJE CLARKE MD Ot 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 01/14/2018 JORJE CLARKE MD Ot D80.1 NONFAMILIAL HYPOGAMMAGLOBULINEMIA 01/14/2018 JORJE CLARKE MD Ot J30.9 ALLERGIC RHINITIS, UNSPECIFIED 01/14/2018 JORJE CLARKE MD Ot Z79.899 OTHER RAW SILK GRADER (CURRENT) DRUG THERAPY 01/15/2018 JORJE CLARKE MD Ot 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 01/15/2018 JORJE CLARKE MD Ot D80.1 NONFAMILIAL HYPOGAMMAGLOBULINEMIA 01/15/2018 JORJE CLARKE MD Ot J30.9 ALLERGIC RHINITIS, UNSPECIFIED 01/15/2018 JORJE CLARKE MD Ot Z79.899 OTHER RAW SILK GRADER (CURRENT) DRUG THERAPY 02/07/2018 JORJE CLARKE MD Ot 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 02/07/2018 JORJE CLARKE MD Ot D80.1 NONFAMILIAL HYPOGAMMAGLOBULINEMIA 02/07/2018 JORJE CLARKE MD Ot Z79.899 OTHER RAW SILK GRADER (CURRENT) DRUG THERAPY 03/09/2018 JORJE CLARKE MD Ot 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 03/09/2018 JORJE CLARKE MD Ot D80.1 NONFAMILIAL HYPOGAMMAGLOBULINEMIA 03/09/2018 JORJE CLARKE MD Ot Z79.899 OTHER SENIOR CARE (CURRENT) DRUG THERAPY 03/14/2018 JORJE CLARKE MD Ot 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 03/14/2018 JORJE CLARKE MD Ot D80.1 NONFAMILIAL HYPOGAMMAGLOBULINEMIA 03/14/2018 JORJE CLARKE MD Ot Z79.899 OTHER SENIOR CARE (CURRENT) DRUG THERAPY 04/09/2018 JORJE CLARKE MD Ot 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 04/09/2018 JORJE CLARKE MD Ot D80.1 NONFAMILIAL HYPOGAMMAGLOBULINEMIA 04/09/2018 JORJE CLARKE MD Ot Z79.899 OTHER SENIOR CARE (CURRENT) DRUG THERAPY 04/09/2018 JORJE CLARKE MD Ot 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 04/09/2018 JORJE CLARKE MD Ot D80.1 NONFAMILIAL HYPOGAMMAGLOBULINEMIA 04/09/2018 JORJE CLARKE MD Ot Z79.899 OTHER RAW SILK GRADER (CURRENT) DRUG THERAPY 04/09/2018 JORJE CLARKE MD Ot 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 04/09/2018 JORJE CLARKE MD Ot D80.1 NONFAMILIAL HYPOGAMMAGLOBULINEMIA 04/09/2018 JORJE CLARKE MD Ot Z79.899 OTHER RAW SILK GRADER (CURRENT) DRUG THERAPY 05/12/2018 JORJE CLARKE MD Ot 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 05/12/2018 JORJE CLARKE MD Ot D80.1 NONFAMILIAL HYPOGAMMAGLOBULINEMIA 05/12/2018 JORJE CLARKE MD Ot Z79.899 OTHER SENIOR CARE (CURRENT) DRUG THERAPY 06/07/2018 JORJE CLARKE MD Ot 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 06/07/2018 JORJE CLARKE MD Ot D80.1 NONFAMILIAL HYPOGAMMAGLOBULINEMIA 06/07/2018 JORJE CLARKE MD Ot Z79.899 OTHER SENIOR CARE (CURRENT) DRUG THERAPY 06/13/2018 JORJE CLARKE MD Ot 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 06/13/2018 JORJE CLARKE MD Ot D80.1 NONFAMILIAL HYPOGAMMAGLOBULINEMIA 06/13/2018 JORJE CLARKE MD Ot Z79.899 OTHER RAW SILK GRADER (CURRENT) DRUG THERAPY 07/08/2018 JORJE CLARKE MD Ot 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 07/08/2018 JORJE CLARKE MD Ot D80.1 NONFAMILIAL HYPOGAMMAGLOBULINEMIA 07/08/2018 JORJE CLARKE MD Ot Z79.899 OTHER RAW SILK GRADER (CURRENT) DRUG THERAPY 07/09/2018 JORJE CLARKE MD Ot 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 07/09/2018 JORJE CLARKE MD Ot D80.1 NONFAMILIAL HYPOGAMMAGLOBULINEMIA 07/09/2018 JORJE CLARKE MD Ot Z79.899 OTHER SENIOR CARE (CURRENT) DRUG THERAPY 07/30/2018 JORJE CLARKE MD Ot V76.12 OTH SCREEN MAMMO-MALIGN NEOPLASM OF CLAUDETTE 07/30/2018 JORJE CLARKE MD Ot Z12.31 ENCNTR SCREEN MAMMOGRAM FOR MALIGNANT NE 07/30/2018 JORJE CLARKE MD Ot R05 COUGH 07/30/2018 JOSSELIN ARNETT, JACOBY Sutton Ot N39.0 URINARY TRACT INFECTION, SITE NOT SPECIF Procedures There is no data. Results Test Result Range C DIFFICILE AG + TOXIN A/B. - 04/19/17 07:30 RESULTS NEGATIVE FOR ANTIGEN AND TOXIN A/B [facility] Stool bacteria identification by culture - 04/19/17 07:30 Stool bacteria identification by culture N2 [facility] Complete blood count (CBC) with automated white blood cell (WBC) differential - 04/19/17 07:35 Blood leukocytes automated count (number/volume) 6.5 10*3/uL 4.3-11.0 Blood erythrocytes automated count (number/volume) 4.36 10*6/uL 4.35-5.85 Venous blood hemoglobin measurement (mass/volume) 13.2 g/dL 11.5-16.0 Blood hematocrit (volume fraction) 39 % 35-52 Automated erythrocyte mean corpuscular volume 90 [foz_us] 80-99 Automated erythrocyte mean corpuscular hemoglobin (mass per erythrocyte) 30 pg 25-34 Automated erythrocyte mean corpuscular hemoglobin concentration measurement ( mass/volume) 34 g/dL 32-36 Automated erythrocyte distribution width ratio 15.9 % 10.0-14.5 Automated blood platelet count (count/volume) 249 10*3/uL 130-400 Automated blood platelet mean volume measurement 12.3 [foz_us] 7.4-10.4 Automated blood neutrophils/100 leukocytes 51 % 42-75 Automated blood lymphocytes/100 leukocytes 32 % 12-44 Blood monocytes/100 leukocytes 12 % 0-12 Automated blood eosinophils/100 leukocytes 3 % 0-10 Automated blood basophils/100 leukocytes 2 % 0-10 Blood neutrophils automated count (number/volume) 3.3 10*3 1.8-7.8 Blood lymphocytes automated count (number/volume) 2.1 10*3 1.0-4.0 Blood monocytes automated count (number/volume) 0.8 10*3 0.0-1.0 Automated eosinophil count 0.2 10*3/uL 0.0-0.3 Automated blood basophil count (count/volume) 0.1 10*3/uL 0.0-0.1 Comprehensive metabolic panel - 04/19/17 07:35 Serum or plasma sodium measurement (moles/volume) 143 mmol/L 135-145 Serum or plasma potassium measurement (moles/volume) 3.5 mmol/L 3.6-5.0 Serum or plasma chloride measurement (moles/volume) 110 mmol/L 98-107 Carbon dioxide 21 mmol/L 21-32 Serum or plasma anion gap determination (moles/volume) 12 mmol/L 5-14 Serum or plasma urea nitrogen measurement (mass/volume) 18 mg/dL 7-18 Serum or plasma creatinine measurement (mass/volume) 0.81 mg/dL 0.60-1.30 Serum or plasma urea nitrogen/creatinine mass ratio 22 NRG Serum or plasma creatinine measurement with calculation of estimated glomerular filtration rate > NRG Serum or plasma glucose measurement (mass/volume) 110 mg/dL 70-105 Serum or plasma calcium measurement (mass/volume) 9.5 mg/dL 8.5-10.1 Serum or plasma total bilirubin measurement (mass/volume) 1.4 mg/dL 0.1-1.0 Serum or plasma alkaline phosphatase measurement (enzymatic activity/volume) 96 U/L 40-136 Serum or plasma aspartate aminotransferase measurement (enzymatic activity/ volume) 32 U/L 5-34 Serum or plasma alanine aminotransferase measurement (enzymatic activity/volume ) 25 U/L 0-55 Serum or plasma protein measurement (mass/volume) 6.5 g/dL 6.4-8.2 Serum or plasma albumin measurement (mass/volume) 4.1 g/dL 3.2-4.5 Magnesium - 04/19/17 07:35 Magnesium 1.9 mg/dL 1.8-2.4 Serum or plasma troponin i.cardiac measurement (mass/volume) - 04/19/17 07:35 Serum or plasma troponin i.cardiac measurement (mass/volume) < ng/ mL <0.30 Complete urinalysis with reflex to culture - 04/19/17 07:50 Urine color determination YELLOW NRG Urine clarity determination SLIGHTLY CLOUDY NRG Urine pH measurement by test strip 7 5-9 Specific gravity of urine by test strip 1.010 1.016- 1.022 Urine protein assay by test strip, semi-quantitative NEGATIVE NEGATIVE Urine glucose detection by automated test strip NEGATIVE NEGATIVE Erythrocytes detection in urine sediment by light microscopy 1+ NEGATIVE Urine ketones detection by automated test strip NEGATIVE NEGATIVE Urine nitrite detection by test strip POSITIVE NEGATIVE Urine total bilirubin detection by test strip NEGATIVE NEGATIVE Urine urobilinogen measurement by automated test strip (mass/volume) NORMAL NORMAL Urine leukocyte esterase detection by dipstick 3+ NEGATIVE Automated urine sediment erythrocyte count by microscopy (number/high power field) NONE NRG Automated urine sediment leukocyte count by microscopy (number/high power field ) > [HPF] NRG Bacteria detection in urine sediment by light microscopy MODERATE NRG Crystals detection in urine sediment by light microscopy NONE NRG Casts detection in urine sediment by light microscopy NONE NRG Mucus detection in urine sediment by light microscopy NEGATIVE NRG Complete urinalysis with reflex to culture YES NRG Bacterial urine culture - 04/19/17 07:50 Bacterial urine culture [id number] NRG COLONY COUNT >100,000/ML NRG FTX;REPORTABLE SENSITIVITY REPORTED AT 1603, 8--17 NR Bacterial susceptibility panel - 04/19/17 07:50 Gentamicin susceptibility test by minimum inhibitory concentration < = NRG Trimethoprim/sulfamethoxazole susceptibility test by minimum inhibitoryconcentration <= NRG Ampicillin susceptibility test by minimum inhibitory concentration < = NRG Tobramycin susceptibility test by minimum inhibitory concentration < = NRG Cefazolin susceptibility test by minimum inhibitory concentration < = NRG Ceftriaxone susceptibility test by minimum inhibitory concentration <= NRG Ampicillin/sulbactam susceptibility test by minimum inhibitory concentration <= NRG Piperacillin/tazobactam susceptibility test by minimum inhibitory concentration <= NRG Ciprofloxacin susceptibility test by minimum inhibitory concentration >= NRG Meropenem susceptibility test by minimum inhibitory concentration < = NRG Nitrofurantoin susceptibility test by minimum inhibitory concentration <= NRG Aztreonam susceptibility test by minimum inhibitory concentration < = NRG Extended spectrum beta lactamase (ESBL) producing bacteria susceptibility test by minimum inhibitory concentration - [facility] Complete urinalysis with reflex to culture - 04/25/17 12:30 Urine color determination YELLOW NRG Urine clarity determination CLEAR NRG Urine pH measurement by test strip 8 5-9 Specific gravity of urine by test strip 1.015 1.016- 1.022 Urine protein assay by test strip, semi-quantitative NEGATIVE NEGATIVE Urine glucose detection by automated test strip NEGATIVE NEGATIVE Erythrocytes detection in urine sediment by light microscopy NEGATIVE NEGATIVE Urine ketones detection by automated test strip NEGATIVE NEGATIVE Urine nitrite detection by test strip NEGATIVE NEGATIVE Urine total bilirubin detection by test strip NEGATIVE NEGATIVE Urine urobilinogen measurement by automated test strip (mass/volume) NORMAL NORMAL Urine leukocyte esterase detection by dipstick 1+ NEGATIVE Automated urine sediment erythrocyte count by microscopy (number/high power field) NONE NRG Automated urine sediment leukocyte count by microscopy (number/high power field ) [HPF] NRG Bacteria detection in urine sediment by light microscopy TRACE NRG Squamous epithelial cells detection in urine sediment by light microscopy 0-2 NRG Crystals detection in urine sediment by light microscopy NONE NRG Casts detection in urine sediment by light microscopy NONE NRG Mucus detection in urine sediment by light microscopy NEGATIVE NRG Complete urinalysis with reflex to culture YES NRG Bacterial urine culture - 04/25/17 12:30 Bacterial urine culture [id number] NRG COLONY COUNT <10,000 NRG Complete blood count (CBC) with automated white blood cell (WBC) differential - 08/29/18 09:45 Blood leukocytes automated count (number/volume) 14.0 10*3/uL 4.3-11.0 Blood erythrocytes automated count (number/volume) 3.24 10*6/uL 4.35-5.85 Venous blood hemoglobin measurement (mass/volume) 10.0 g/dL 11.5-16.0 Blood hematocrit (volume fraction) 31 % 35-52 Automated erythrocyte mean corpuscular volume 95 [foz_us] 80-99 Automated erythrocyte mean corpuscular hemoglobin (mass per erythrocyte) 31 pg 25-34 Automated erythrocyte mean corpuscular hemoglobin concentration measurement ( mass/volume) 32 g/dL 32-36 Automated erythrocyte distribution width ratio 15.7 % 10.0-14.5 Automated blood platelet count (count/volume) 204 10*3/uL 130-400 Automated blood platelet mean volume measurement 12.5 [foz_us] 7.4-10.4 Automated blood neutrophils/100 leukocytes 80 % 42-75 Automated blood lymphocytes/100 leukocytes 15 % 12-44 Blood monocytes/100 leukocytes 4 % 0-12 Automated blood eosinophils/100 leukocytes 0 % 0-10 Automated blood basophils/100 leukocytes 0 % 0-10 Blood neutrophils automated count (number/volume) 11.3 10*3 1.8-7.8 Blood lymphocytes automated count (number/volume) 2.2 10*3 1.0-4.0 Blood monocytes automated count (number/volume) 0.5 10*3 0.0-1.0 Automated eosinophil count 0.0 10*3/uL 0.0-0.3 Automated blood basophil count (count/volume) 0.0 10*3/uL 0.0-0.1 Comprehensive metabolic panel - 08/29/18 09:45 Serum or plasma sodium measurement (moles/volume) 144 mmol/L 135-145 Serum or plasma potassium measurement (moles/volume) 4.6 mmol/L 3.6-5.0 Serum or plasma chloride measurement (moles/volume) 114 mmol/L 98-107 Carbon dioxide 17 mmol/L 21-32 Serum or plasma anion gap determination (moles/volume) 13 mmol/L 5-14 Serum or plasma urea nitrogen measurement (mass/volume) 57 mg/dL 7-18 Serum or plasma creatinine measurement (mass/volume) 1.11 mg/dL 0.60-1.30 Serum or plasma urea nitrogen/creatinine mass ratio 51 NRG Serum or plasma creatinine measurement with calculation of estimated glomerular filtration rate 47 NRG Serum or plasma glucose measurement (mass/volume) 185 mg/dL 70-105 Serum or plasma calcium measurement (mass/volume) 8.9 mg/dL 8.5-10.1 Serum or plasma total bilirubin measurement (mass/volume) 1.0 mg/dL 0.1-1.0 Serum or plasma alkaline phosphatase measurement (enzymatic activity/volume) 66 U/L 40-136 Serum or plasma aspartate aminotransferase measurement (enzymatic activity/ volume) 29 U/L 5-34 Serum or plasma alanine aminotransferase measurement (enzymatic activity/volume ) 22 U/L 0-55 Serum or plasma protein measurement (mass/volume) 5.7 g/dL 6.4-8.2 Serum or plasma albumin measurement (mass/volume) 3.6 g/dL 3.2-4.5 CALCIUM CORRECTED 9.2 mg/dL 8.5-10.1 Magnesium - 08/29/18 09:45 Magnesium 2.0 mg/dL 1.8-2.4 Blood manual differential performed detection - 08/29/18 09:45 Blood monocytes/100 leukocytes 4 % NRG Manual blood segmented neutrophils/100 leukocytes 78 % NRG Blood band neutrophils/100 leukocytes 0 % NRG Manual blood lymphocytes/100 leukocytes 11 % NRG Manual eosinophils/100 leukocytes in nose 1 % NRG Manual blood basophils/100 leukocytes 0 % NRG Blood lymphocytes variant/100 leukocytes 6 % NRG Blood anisocytosis detection by light microscopy SLIGHT NRG Blood ovalocytes detection by light microscopy MODERATE NRG Blood toxic granules detection by light microscopy 1+ NRG Blood poikilocytosis detection by light microscopy MODERATE NRG Blood target cells detection by light microscopy SLIGHT NRG Acanthocyte detection MODERATE NRG Encounters ACCT No. Visit Date/Time Discharge Status Pt. Type Provider Facility Loc./Unit Complaint [id number] 07/30/2018 09:05:00 07/30/2018 23:59:59 CLS Outpatient JORJE CLARKE MD [facility] ONC OV [id number] 06/04/2018 08:39:00 07/08/2018 00:01:00 DIS Outpatient JORJE CLARKE MD [facility] ONC OV [id number] 02/05/2018 08:42:00 04/09/2018 10:48:00 DIS Outpatient JORJE CLARKE MD [facility] ONC OV [id number] 12/11/2017 08:44:00 01/14/2018 00:01:00 DIS Outpatient JORJE CLARKE MD [facility] ONC OV [id number] 08/21/2017 08:36:00 09/24/2017 00:01:00 DIS Outpatient JORJE CLARKE MD [facility] ONC OV [id number] 05/29/2017 10:50:00 06/17/2017 00:01:00 DIS Outpatient JOREJ CLARKE MD [facility] ONC OV [id number] 05/02/2017 09:11:00 05/08/2017 00:01:00 DIS Outpatient JORJE CLARKE MD [facility] ONC OV [id number] 04/25/2017 12:22:00 04/25/2017 23:59:59 CLS Outpatient JACOBY SCHWAB MD [facility] LAB UTI [id number] 04/19/2017 09:00:00 04/20/2017 11:00:00 DIS Inpatient EDUARDO ROSADO DO [facility] 4TH UTI,DIZZINESS,DIARRHEA [id number] 01/10/2017 09:14:00 01/16/2017 00:01:00 DIS Outpatient JORJE CLARKE MD [facility] ONC OV [id number] 09/20/2016 08:59:00 09/26/2016 00:01:00 DIS Outpatient JORJE CLARKE MD [facility] ONC OV [id number] 04/04/2016 09:50:00 04/17/2016 00:01:00 DIS Outpatient JORJE CLARKE MD [facility] ONC OV [id number] 12/07/2015 10:12:00 01/15/2016 14:12:00 DIS Outpatient JORJE CLARKE MD [facility] ONC OV [id number] 07/20/2015 09:26:00 09/20/2015 00:01:00 DIS Outpatient JORJE CLARKE MD [facility] ONC OV [id number] 08/18/2015 09:47:00 08/18/2015 23:59:59 CLS Outpatient JORJE CLARKE MD [facility] RAD SCREENING [id number] 07/20/2015 10:33:00 07/20/2015 23:59:59 CLS Outpatient JORJE CLARKE MD [facility] RAD [id number] 03/23/2015 10:47:00 05/24/2015 00:01:00 DIS Outpatient JORJE CLARKE MD [facility] ONC OV [id number] 12/02/2014 09:23:00 01/25/2015 00:01:00 DIS Outpatient JORJE CLARKE MD [facility] ONC OV [id number] 08/18/2014 08:48:00 08/24/2014 00:01:00 DIS Outpatient JORJE CLARKE MD [facility] ONC OV [id number] 03/31/2014 09:01:00 03/31/2014 00:01:00 DIS Outpatient JORJE CLARKE MD [facility] ONC OV [id number] 10/28/2013 08:32:00 10/28/2013 00:01:00 DIS Outpatient JORJE CLARKE MD [facility] ONC OV [id number] 08/27/2013 09:03:00 08/27/2013 23:59:59 CLS Outpatient JORJE CLARKE MD [facility] RAD SCREENING [id number] 06/18/2013 09:12:00 07/25/2013 15:45:00 DIS Outpatient JORJE CLARKE MD [facility] ONC OV [id number] 03/26/2013 10:57:00 04/15/2013 00:01:00 DIS Outpatient TRICIA ARNETT, JORJE [facility] ONC OV [id number] 08/29/2018 09:40:00 ACT Emergency FCO ARNETT, RYANNE Sutton [facility] ER GI BLEED [id number] 12/04/2012 10:11:00 Document Registration [id number] 08/27/2012 13:07:00 Document Registration [id number] 08/20/2012 08:29:00 Document Registration [id number] 05/30/2012 13:50:00 Document Registration [id number] 02/14/2012 11:14:00 Document Registration [id number] 02/14/2012 09:18:00 Document Registration [id number] 12/13/2011 10:41:00 Document Registration [id number] 12/05/2011 10:09:00 Document Registration [id number] 10/25/2011 09:38:00 Document Registration [id number] 10/18/2011 10:51:00 Document Registration [id number] 09/06/2011 10:25:00 Document Registration [id number] 06/06/2011 10:20:00 Document Registration [id number] 03/28/2011 07:01:00 Document Registration [id number] 02/21/2011 10:18:00 Document Registration [id number] 02/21/2011 10:17:00 Document Registration [id number] 12/20/2010 13:49:00 Document Registration [id number] 11/18/2010 09:50:00 Document Registration [id number] 07/20/2010 14:17:00 Document Registration [id number] 04/07/2010 09:20:00 Document Registration
--- NOTE | 2018-08-29 13:02 | History & Physical-Hospitalist ---
EDUARDO ROSADO DO 08/29/18 1302: History of Present Illness HPI/Chief Complaint CC: GIB HPI: This is an 87yoWF clinic patient of Dr Lee who presented to the ER w/ melena and slight hemoptysis. Pt was found to be stable but already hgb dropped from [address] Hadley will perform scopes in the morning. Source: patient Exam Limitations: no limitations Date Seen 08/29/18 Time Seen by a Provider: 19:30 Attending Physician PCP Andrea Lee MD Referring Physician Date of Admission Home Medications & Allergies Home Medications Reviewed patient Home Medication Reconciliation performed by pharmacy medication reconciliations dialysis chief equipment technician and/or nursing. Patients Allergies have been reviewed. 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[employer]) Alcohol Use: Denies Use Recreational Drug Use: No Smoking Status: Never a Smoker 2nd Hand Smoke Exposure: No Recent Foreign Travel: No Contact w/other who traveled: No Recent Hopitalizations: No Recent Infectious Disease Expo: No Seasonal Allergies Seasonal Allergies: Yes Past Medical History Surgeries: Adenoidectomy, Appendectomy, Gallbladder, Hysterectomy, Tonsillectomy Currently Using CPAP: No Currently Using BIPAP: No Cardiac: Hypertension Gastrointestinal: Diverticulosis, Hemorrhoids, Gall Bladder Disease Musculoskeletal: Arthritis HEENT: Cataract Hearing Impairment: Hard of Hearing, Bilateral Hearing Aide Cancer: Lymphoma Did You Recieve Any Treatments: Yes What Type of Treatment Did You: Chemotherapy History of Blood Disorders: No Family History Reviewed Nursing Family Hx Cardiovascular disease 19 MOTHER Completed stroke 19 MOTHER FH: kidney cancer 19 FATHER Hypertension 19 MOTHER Severe allergy No Family History of: Chippewa's disease Alcoholism Alzheimer's disease Dementia Diabetes mellitus Drug abuse Myocardial infarction Seizure disorder Tuberculosis Review of Systems Constitutional: see HPI, weakness EENTM: no symptoms reported Respiratory: no symptoms reported Cardiovascular: no symptoms reported Gastrointestinal: hematemesis, loss of appetite, melena, nausea, vomiting Genitourinary: decreased output Musculoskeletal: no symptoms reported Skin: no symptoms reported Psychiatric/Neurological: No Symptoms Reported All Other Systems Reviewed Negative Unless Noted: Yes Physical Exam Physical Exam Vital Signs Vital Signs - First Documented 08/29/18 08/29/18 08/29/18 10:01 14:00 15:30 Temp 97.6 Pulse 101 Resp 20 B/P (MAP) 98/60 (73) Pulse Ox 96 O2 Delivery Room Air FiO2 21 Capillary Refill : Greater Than 3 Seconds Height, Weight, BMI Height: 5'1.00" Weight: 154lbs. 0.0oz. 69.580318cg; 27.4 BMI Method:Stated General Appearance: No Apparent Distress, WD/WN, Chronically ill Eyes: Bilateral Eye Normal Inspection, Bilateral Eye PERRL HEENT: PERRL/EOMI, Normal ENT Inspection, Pharynx Normal Neck: Full Range of Motion, Normal Inspection, Non Tender, Supple, Carotid Bruit Respiratory: Chest Non Tender, Lungs Clear, Normal Breath Sounds, No Accessory Muscle Use, No Respiratory Distress Cardiovascular: Regular Rate, Rhythm, No Edema, No Gallop, No JVD, No Murmur, Normal Peripheral Pulses Gastrointestinal: Normal Bowel Sounds, No Organomegaly, No Pulsatile Mass, Non Tender, Soft Back: Normal Inspection, No CVA Tenderness, No Vertebral Tenderness Extremity: Normal Capillary Refill, Normal Inspection, Normal Range of Motion, Non Tender, No Calf Tenderness, No Pedal Edema Neurologic/Psychiatric: Alert, Oriented x3, No Motor/Sensory Deficits, Normal Mood/Affect Skin: Normal Color, Warm/Dry Lymphatic: No Adenopathy Results Results/Procedures Labs Laboratory Tests 08/29/18 09:45 08/29/18 13:28 08/29/18 16:10 08/29/18 20:09 Patient resulted labs reviewed. Assessment/Plan Admission Diagnosis Assessment: GIB Anemia Plan: Scopes in am H/H monitoring Admission Status: Inpatient Order (span 2 midnights) Reason for Inpatient Admission: GIB will require close monitoring and scopes and transfusions Diagnosis/Problems Diagnosis/Problems (1) GI bleeding Status: Acute Qualifiers: GI bleed type/associated pathology: unspecified gastrointestinal hemorrhage type Qualified Codes: K92.2 - Gastrointestinal hemorrhage, unspecified DIMATTIA,ZEKE MED STUDENT 08/29/18 1339: History of Present Illness HPI/Chief Complaint CC: Melena HPI: This is a 87 yo WF with a 20 year hx of non-Hodgkin lymphoma who presents today with a CC of melena. Pt states that this morning she got up to go to the bathroom and felt incredibly sick to her stomach. She felt so sick that she had to sit on the floor and activate her EMS medical alert button. EMS reported dark stool in her bed along with bloody emesis, however the pt does not remember ever vomiting. She reports that she noticed her stools were black on Monday, but she thought it was because she had eaten some chocolate. She reports she wasnt feeling well then either, but it had passed. Denies any recent illness. No abdominal cramps, pain, or fever. States this has never happened to her before. 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[employer]) Past Medical History Splenectomy Family History Cardiovascular disease 19 MOTHER Completed stroke 19 MOTHER FH: kidney cancer 19 FATHER Hypertension 19 MOTHER Severe allergy No Family History of: Chippewa's disease Alcoholism Alzheimer's disease Dementia Diabetes mellitus Drug abuse Myocardial infarction Seizure disorder Tuberculosis Review of Systems Constitutional: no symptoms reported Respiratory: no symptoms reported Cardiovascular: no symptoms reported Psychiatric/Neurological: No Symptoms Reported Physical Exam Physical Exam General Appearance: Mild Distress Neck: Full Range of Motion Respiratory: Lungs Clear Cardiovascular: No Regular Rate, Rhythm; Irregularly Irregular Gastrointestinal: Non Tender Genital/Rectal: Heme Positive Stool Extremity: Normal Capillary Refill, No Pedal Edema Neurologic/Psychiatric: Alert, Oriented x3 Skin: Warm/Dry EDUARDO ROSADO DO Aug 29, 2018 13:02 ZEKE MARTIN MED STUDENT Aug 29, 2018 13:39
[2018-08-29] MEDS ORDERED: PANTOPRAZOLE 40 MG (PROTONIX) VIAL IV ONE (13:15)
[2018-08-29 13:35] LABS: HEMOGLOBIN 9.3 G/DL (11.5-16.0)
--- OUTSIDE RECORDS SUMMARY | 2018-08-29 14:29 | XMS REPORT | Clinical Summary ---
Author Author [facility] Organization [facility] Address Unknown Phone Unavailable Care Team Providers Care Outlet Manager Name Role Phone Andrea Lee MD PCP [...]
[2018-08-29] MEDS ORDERED: CATHETER FLUSH 10 ML SYR IV PRN (14:30)
--- OUTSIDE RECORDS SUMMARY | 2018-08-29 14:30 | XMS REPORT | Continuity of Care Document ---
Author Author [facility] Organization [facility] Address Unknown Phone Unavailable Allergies Active Description Code Type Severity Reaction Onset Reported/Identified Relationship to Patient Clinical Status Yes clindamycin [id number] Drug Allergy Unknown N/A 04/19/2017 Yes Penicillins [id number] Drug Allergy Unknown N/A 04/19/2017 Yes Sulfa (Sulfonamide Antibiotics) [id number] Drug Allergy Unknown N/A 2016 Medications There is no data. 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 08/17/1047 JORJE CLARKE MD Ot D80.1 NONFAMILIAL HYPOGAMMAGLOBULINEMIA 08/17/1047 JORJE CLARKE MD Ot Z79.899 OTHER CUSTODIAL (CURRENT) DRUG THERAPY 04/28/2010 Ot 204.10 04/28/2010 [...] ARNETT, YULIANA-JONATAN Ot 279.00 10/28/2014 TRICIA ARNETT, YULAINA-JONATAN Ot V58.11 10/28/2014 TRICIA ARNETT, YULIANA-JONATAN Ot [...] TRICIA ARNETT, BRIDGES-JONATAN Ot 202.80 02/23/2015 TRICIA RANETT, YULIANA-JONATAN Ot 279.00 02/23/2015 TRICIA ARNETT, YULIANA-JONATAN Ot V58.11 02/23/2015 TRICIA ARNETT, YULIANA-JONATAN Ot V58.69 02/24/2015 TRICIA ARNETT, YULIANA-JONATAN Ot 202.80 02/24/2015 TRICIA ARNETT, YULIANA-JONATAN Ot 279.00 02/24/2015 TRICIA ARNETT, YULIANA-JONATAN Ot V58.11 02/24/2015 TRICIA ARNETT, YULIANA-JONATAN Ot V58.69 04/10/2015 TRICIA ARNETT, YULIANA-JONATAN Ot 202.80 04/10/2015 TRICIA ARNETT, YULIANA-JONATAN Ot 279.00 04/10/2015 TRICIA ARNETT, YULIANA-JONATAN Ot [...] V58.11 05/24/2015 TRICIA ARNETT, YULIANA-JONATAN Ot V58.69 [facility] 06/15/2015 TRICIA ARNETT, YULIANA-JONATAN Ot [...] ARNETT, JORJE Ot D80.1 08/18/2015 TRICIA ARNETT, JORJE Ot Z51.11 08/18/2015 TRICIA ARNETT, JORJE Ot [...] 09/20/2015 TRICIA ARNETT, JORJE Ot Z79.899 OTHER CUSTODIAL (CURRENT) DRUG THERAPY 10/12/2015 TRICIA ARNETT, JORJE [...] CLARKE MD Ot D80.1 NONFAMILIAL HYPOGAMMAGLOBULINEMIA 01/06/2016 JOJRE CLARKE MD Ot Z51.11 ENCOUNTER FOR ANTINEOPLASTIC CHEMOTHERAP 01/06/2016 JORJE CLARKE MD Ot Z79.899 OTHER CUSTODIAL (CURRENT) DRUG THERAPY 01/14/2016 JORJE CLARKE MD, Ot 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 01/14/2016 JORJE CLARKE MD Ot D80.1 NONFAMILIAL HYPOGAMMAGLOBULINEMIA 01/14/2016 JORJE CLARKE MD Ot Z51.11 ENCOUNTER FOR ANTINEOPLASTIC CHEMOTHERAP 01/14/2016 JORJE CLARKE MD Ot Z79.899 OTHER BOX TURNER (CURRENT) DRUG THERAPY 01/15/2016 JORJE CLARKE MD, Ot 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 01/15/2016 JORJE CLARKE MD Ot D80.1 NONFAMILIAL HYPOGAMMAGLOBULINEMIA 01/15/2016 JORJE CLARKE MD Ot Z51.11 ENCOUNTER FOR ANTINEOPLASTIC CHEMOTHERAP 01/15/2016 JORJE CLARKE MD Ot Z79.899 OTHER CUSTODIAL (CURRENT) DRUG THERAPY 03/28/2016 JORJE CLARKE MD, Ot 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 03/28/2016 JORJE CLARKE MD Ot D80.1 NONFAMILIAL HYPOGAMMAGLOBULINEMIA 03/28/2016 JORJE CLARKE MD Ot Z51.11 ENCOUNTER FOR ANTINEOPLASTIC CHEMOTHERAP 03/28/2016 JORJE CLARKE MD Ot Z79.899 OTHER CUSTODIAL (CURRENT) DRUG THERAPY 04/17/2016 JORJE CLARKE MD Ot 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 04/17/2016 JORJE CLARKE MD Ot D80.1 NONFAMILIAL HYPOGAMMAGLOBULINEMIA 04/17/2016 JORJE CLARKE MD Ot Z51.11 ENCOUNTER FOR ANTINEOPLASTIC CHEMOTHERAP 04/17/2016 JORJE CLARKE MD Ot Z79.899 OTHER BOX TURNER (CURRENT) DRUG THERAPY 04/18/2016 Ot V17.49 FAMILY HISTORY OF OTHER CARDIOVASCULAR D 04/18/2016 Ot V77.91 SCREEN LIPOID DISORDERS 08/17/2016 JORJE CLARKE MD, Ot 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 08/17/2016 JORJE CLARKE MD Ot D80.1 NONFAMILIAL HYPOGAMMAGLOBULINEMIA 08/17/2016 JORJE CLARKE MD Ot Z51.11 ENCOUNTER FOR ANTINEOPLASTIC CHEMOTHERAP 08/17/2016 JORJE CLARKE MD Ot Z79.899 OTHER BOX TURNER (CURRENT) DRUG THERAPY 08/17/2016 JORJE CLARKE MD, Ot 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 08/17/2016 JORJE CLARKE MD, Ot D80.1 NONFAMILIAL HYPOGAMMAGLOBULINEMIA 08/17/2016 JORJE CLARKE MD, Ot Z51.11 ENCOUNTER FOR ANTINEOPLASTIC CHEMOTHERAP 08/17/2016 JORJE CLARKE MD, Ot Z79.899 OTHER BOX TURNER (CURRENT) DRUG THERAPY 09/18/2016 Ot 793.80 UNSPEC ABNORMAL MAMMOGRAM 09/26/2016 JORJE CLARKE MD, Ot 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 09/26/2016 JORJE CLARKE MD Ot D80.1 NONFAMILIAL HYPOGAMMAGLOBULINEMIA 09/26/2016 JORJE CLARKE MD Ot Z51.11 ENCOUNTER FOR ANTINEOPLASTIC CHEMOTHERAP 09/26/2016 JORJE CLARKE MD Ot Z79.899 OTHER BOX TURNER (CURRENT) DRUG THERAPY 09/27/2016 JORJE CLARKE MD, Ot 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 09/27/2016 JORJE CLARKE MD Ot D80.1 NONFAMILIAL HYPOGAMMAGLOBULINEMIA 09/27/2016 JORJE CLARKE MD Ot Z51.11 ENCOUNTER FOR ANTINEOPLASTIC CHEMOTHERAP 09/27/2016 JORJE CLARKE MD Ot Z79.899 OTHER CUSTODIAL (CURRENT) DRUG THERAPY 10/17/2016 JORJE CLARKE MD, Ot 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 10/17/2016 JORJE CLARKE MD Ot D80.1 NONFAMILIAL HYPOGAMMAGLOBULINEMIA 10/17/2016 JORJE CLARKE MD Ot Z51.11 ENCOUNTER FOR ANTINEOPLASTIC CHEMOTHERAP 10/17/2016 JORJE CLARKE MD Ot Z79.899 OTHER BOX TURNER (CURRENT) DRUG THERAPY 10/18/2016 JORJE CLARKE MD Ot 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 10/18/2016 JORJE CLARKE MD Ot D80.1 NONFAMILIAL HYPOGAMMAGLOBULINEMIA 10/18/2016 JORJE CLARKE MD Ot Z51.11 ENCOUNTER FOR ANTINEOPLASTIC CHEMOTHERAP 10/18/2016 JORJE CLARKE MD Ot Z79.899 OTHER BOX TURNER (CURRENT) DRUG THERAPY 10/27/2016 JORJE CLARKE MD, Ot 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 10/27/2016 JROJE CLARKE MD Ot D80.1 NONFAMILIAL HYPOGAMMAGLOBULINEMIA 10/27/2016 JORJE CLARKE MD Ot Z51.11 ENCOUNTER FOR ANTINEOPLASTIC CHEMOTHERAP 10/27/2016 JORJE CLARKE MD, Ot Z79.899 OTHER CUSTODIAL (CURRENT) DRUG THERAPY 11/15/2016 JORJE CLARKE MD, Ot 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 11/15/2016 JORJE CLARKE MD Ot D80.1 NONFAMILIAL HYPOGAMMAGLOBULINEMIA 11/15/2016 JORJE CLARKE MD Ot Z51.11 ENCOUNTER FOR ANTINEOPLASTIC CHEMOTHERAP 11/15/2016 JORJE CLARKE MD Ot Z79.899 OTHER BOX TURNER (CURRENT) DRUG THERAPY 11/25/2016 JORJE CLARKE MD Ot 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 11/25/2016 JORJE CLARKE MD Ot D80.1 NONFAMILIAL HYPOGAMMAGLOBULINEMIA 11/25/2016 JORJE CLARKE MD Ot Z51.11 ENCOUNTER FOR ANTINEOPLASTIC CHEMOTHERAP 11/25/2016 JORJE CLARKE MD Ot Z79.899 OTHER CUSTODIAL (CURRENT) DRUG THERAPY 01/16/2017 JORJE CLARKE MD, Ot 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 01/16/2017 JORJE CLARKE MD Ot D80.1 NONFAMILIAL HYPOGAMMAGLOBULINEMIA 01/16/2017 JORJE CLARKE MD Ot Z51.11 ENCOUNTER FOR ANTINEOPLASTIC CHEMOTHERAP 01/16/2017 JORJE CLARKE MD Ot Z79.899 OTHER CUSTODIAL (CURRENT) DRUG THERAPY 02/07/2017 JORJE CLARKE MD Ot 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 02/07/2017 JORJE CLARKE MD Ot D80.1 NONFAMILIAL HYPOGAMMAGLOBULINEMIA 02/07/2017 JORJE CLARKE MD Ot Z51.11 ENCOUNTER FOR ANTINEOPLASTIC CHEMOTHERAP 02/07/2017 JORJE CLARKE MD Ot Z79.899 OTHER CUSTODIAL (CURRENT) DRUG THERAPY 02/16/2017 Ot 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 02/21/2017 JORJE CLARKE MD, Ot 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 02/21/2017 JORJE CLARKE MD Ot D80.1 NONFAMILIAL HYPOGAMMAGLOBULINEMIA 02/21/2017 JORJE CLARKE MD Ot Z51.11 ENCOUNTER FOR ANTINEOPLASTIC CHEMOTHERAP 02/21/2017 JORJE CLARKE MD Ot Z79.899 OTHER CUSTODIAL (CURRENT) DRUG THERAPY 03/17/2017 JORJE CLARKE MD, Ot 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 03/17/2017 JORJE CLARKE MD Ot D80.1 NONFAMILIAL HYPOGAMMAGLOBULINEMIA 03/17/2017 JORJE CLARKE MD Ot Z51.11 ENCOUNTER FOR ANTINEOPLASTIC CHEMOTHERAP 03/17/2017 JORJE CLARKE MD Ot Z79.899 OTHER BOX TURNER (CURRENT) DRUG THERAPY 03/27/2017 JORJE CLARKE MD, Ot 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 03/27/2017 JORJE CLARKE MD Ot D80.1 NONFAMILIAL HYPOGAMMAGLOBULINEMIA 03/27/2017 JORJE CLARKE MD Ot Z51.11 ENCOUNTER FOR ANTINEOPLASTIC CHEMOTHERAP 03/27/2017 JORJE CLARKE MD Ot Z79.899 OTHER CUSTODIAL (CURRENT) DRUG THERAPY 03/27/2017 JORJE CLARKE MD Ot 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 03/27/2017 JORJE CLARKE MD Ot D80.1 NONFAMILIAL HYPOGAMMAGLOBULINEMIA 03/27/2017 JORJE CLARKE MD, Ot Z51.11 ENCOUNTER FOR ANTINEOPLASTIC CHEMOTHERAP 03/27/2017 JORJE CLARKE MD Ot Z79.899 OTHER BOX TURNER (CURRENT) DRUG THERAPY 04/19/2017 Ot 793.89 OTH [...] 04/19/2017 JORJE CLARKE MD Ot Z79.899 OTHER BOX TURNER (CURRENT) DRUG THERAPY 04/20/2017 EDUARDO ROSADO DO [...] DO EDUARDO Ot Y92.[address] IN [facility] NON-INSTITUT (PRIVATE) 04/20/2017 ROSADOLORENA [place]ON EDUARDO Ot Z66 DO NOT RESUSCITATE 04/20/2017 ROSADOLORENA [place]STON EDUARDO Ot Z79.899 OTHER BOX TURNER (CURRENT) DRUG THERAPY 04/26/2017 JACOBY SCHWAB MD Ot N39.0 URINARY TRACT INFECTION, SITE NOT SPECIF 05/08/2017 JORJE CLARKE MD, Ot 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 05/08/2017 JORJE CLARKE MD Ot D80.1 NONFAMILIAL HYPOGAMMAGLOBULINEMIA 05/08/2017 JORJE CLARKE MD Ot Z51.11 ENCOUNTER FOR ANTINEOPLASTIC CHEMOTHERAP 05/08/2017 JORJE CLARKE MD, Ot Z79.899 OTHER CUSTODIAL (CURRENT) DRUG THERAPY 05/17/2017 JACOBY SCHWAB MD Ot N39.0 URINARY TRACT INFECTION, SITE NOT SPECIF 06/17/2017 JORJE CLARKE MD, Ot 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 06/17/2017 JORJE CLARKE MD Ot D80.1 NONFAMILIAL HYPOGAMMAGLOBULINEMIA 06/17/2017 JORJE CLARKE MD Ot Z51.11 ENCOUNTER FOR ANTINEOPLASTIC CHEMOTHERAP 06/17/2017 JORJE CLARKE MD, Ot Z79.899 OTHER CUSTODIAL (CURRENT) DRUG THERAPY 06/21/2017 JORJE CLARKE MD Ot 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 06/21/2017 JORJE CLARKE MD Ot D80.1 NONFAMILIAL HYPOGAMMAGLOBULINEMIA 06/21/2017 JORJE CLARKE MD Ot Z51.11 ENCOUNTER FOR ANTINEOPLASTIC CHEMOTHERAP 06/21/2017 JORJE CLARKE MD Ot Z79.899 OTHER BOX TURNER (CURRENT) DRUG THERAPY 07/06/2017 JORJE CLARKE MD, Ot 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 07/06/2017 JORJE CLARKE MD Ot D80.1 NONFAMILIAL HYPOGAMMAGLOBULINEMIA 07/06/2017 JORJE CLARKE MD Ot Z79.899 OTHER BOX TURNER (CURRENT) DRUG THERAPY 07/24/2017 JORJE CLARKE MD, Ot 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 07/24/2017 JORJE CLARKE MD Ot D80.1 NONFAMILIAL HYPOGAMMAGLOBULINEMIA 07/24/2017 JORJE CLARKE MD Ot Z79.899 OTHER BOX TURNER (CURRENT) DRUG THERAPY 08/14/2017 JORJE CLARKE MD Ot 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 08/14/2017 JORJE CLARKE MD Ot D80.1 NONFAMILIAL HYPOGAMMAGLOBULINEMIA 08/14/2017 JORJE CLARKE MD Ot Z79.899 OTHER BOX TURNER (CURRENT) DRUG THERAPY 08/17/2017 JORJE CLARKE MD Ot 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 08/17/2017 JORJE CLARKE MD Ot D80.1 NONFAMILIAL HYPOGAMMAGLOBULINEMIA 08/17/2017 JORJE CLARKE MD Ot Z79.899 OTHER BOX TURNER (CURRENT) DRUG THERAPY 09/24/2017 JORJE CLARKE MD Ot 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 09/24/2017 JORJE CLARKE MD Ot D80.1 NONFAMILIAL HYPOGAMMAGLOBULINEMIA 09/24/2017 JOJRE CLARKE MD Ot Z79.899 OTHER BOX TURNER (CURRENT) DRUG THERAPY 09/25/2017 JORJE CLARKE MD Ot 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 09/25/2017 JORJE CLARKE MD Ot D80.1 NONFAMILIAL HYPOGAMMAGLOBULINEMIA 09/25/2017 JORJE CLARKE MD Ot Z79.899 OTHER BOX TURNER (CURRENT) DRUG THERAPY 09/30/2017 JORJE CLARKE MD Ot 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 09/30/2017 JORJE CLARKE MD Ot D80.1 NONFAMILIAL HYPOGAMMAGLOBULINEMIA 09/30/2017 JORJE CLARKE MD Ot Z79.899 OTHER BOX TURNER (CURRENT) DRUG THERAPY 10/17/2017 JORJE CLARKE MD Ot 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 10/17/2017 JORJE CLARKE MD Ot D80.1 NONFAMILIAL HYPOGAMMAGLOBULINEMIA 10/17/2017 JORJE CLARKE MD Ot Z79.899 OTHER CUSTODIAL (CURRENT) DRUG THERAPY 11/10/2017 JORJE CLARKE MD Ot 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 11/10/2017 JORJE CLARKE MD Ot D80.1 NONFAMILIAL HYPOGAMMAGLOBULINEMIA 11/10/2017 JORJE CLARKE MD Ot Z79.899 OTHER CUSTODIAL (CURRENT) DRUG THERAPY 01/10/2018 JORJE CLARKE MD Ot 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 01/10/2018 JORJE CLARKE MD Ot D80.1 NONFAMILIAL HYPOGAMMAGLOBULINEMIA 01/10/2018 JORJE CLARKE MD Ot Z79.899 OTHER BOX TURNER (CURRENT) DRUG THERAPY 01/14/2018 JORJE CLARKE MD Ot 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 01/14/2018 JORJE CLARKE MD Ot D80.1 NONFAMILIAL HYPOGAMMAGLOBULINEMIA 01/14/2018 JORJE CLARKE MD Ot J30.9 ALLERGIC RHINITIS, UNSPECIFIED 01/14/2018 JORJE CLARKE MD Ot Z79.899 OTHER BOX TURNER (CURRENT) DRUG THERAPY 01/15/2018 JORJE CLARKE MD Ot 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 01/15/2018 JORJE CLARKE MD Ot D80.1 NONFAMILIAL HYPOGAMMAGLOBULINEMIA 01/15/2018 JORJE CLARKE MD Ot J30.9 ALLERGIC RHINITIS, UNSPECIFIED 01/15/2018 JORJE CLARKE MD Ot Z79.899 OTHER BOX TURNER (CURRENT) DRUG THERAPY 02/07/2018 JORJE CLARKE MD Ot 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 02/07/2018 JORJE CLARKE MD Ot D80.1 NONFAMILIAL HYPOGAMMAGLOBULINEMIA 02/07/2018 JORJE CLARKE MD Ot Z79.899 OTHER BOX TURNER (CURRENT) DRUG THERAPY 03/09/2018 JORJE CLARKE MD Ot 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 03/09/2018 JORJE CLARKE MD Ot D80.1 NONFAMILIAL HYPOGAMMAGLOBULINEMIA 03/09/2018 JORJE CLARKE MD Ot Z79.899 OTHER CUSTODIAL (CURRENT) DRUG THERAPY 03/14/2018 JORJE CLARKE MD Ot 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 03/14/2018 JORJE CLARKE MD Ot D80.1 NONFAMILIAL HYPOGAMMAGLOBULINEMIA 03/14/2018 JORJE CLARKE MD Ot Z79.899 OTHER CUSTODIAL (CURRENT) DRUG THERAPY 04/09/2018 JORJE CLARKE MD Ot 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 04/09/2018 JORJE CLARKE MD Ot D80.1 NONFAMILIAL HYPOGAMMAGLOBULINEMIA 04/09/2018 JORJE CLARKE MD Ot Z79.899 OTHER CUSTODIAL (CURRENT) DRUG THERAPY 04/09/2018 JORJE CLARKE MD Ot 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 04/09/2018 JORJE CLARKE MD Ot D80.1 NONFAMILIAL HYPOGAMMAGLOBULINEMIA 04/09/2018 JORJE CLARKE MD Ot Z79.899 OTHER BOX TURNER (CURRENT) DRUG THERAPY 04/09/2018 JORJE CLARKE MD Ot 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 04/09/2018 JORJE CLARKE MD Ot D80.1 NONFAMILIAL HYPOGAMMAGLOBULINEMIA 04/09/2018 JORJE CLARKE MD Ot Z79.899 OTHER BOX TURNER (CURRENT) DRUG THERAPY 05/12/2018 JORJE CLARKE MD Ot 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 05/12/2018 JORJE CLARKE MD Ot D80.1 NONFAMILIAL HYPOGAMMAGLOBULINEMIA 05/12/2018 JORJE CLARKE MD Ot Z79.899 OTHER CUSTODIAL (CURRENT) DRUG THERAPY 06/07/2018 JORJE CLARKE MD Ot 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 06/07/2018 JORJE CLARKE MD Ot D80.1 NONFAMILIAL HYPOGAMMAGLOBULINEMIA 06/07/2018 JORJE CLARKE MD Ot Z79.899 OTHER CUSTODIAL (CURRENT) DRUG THERAPY 06/13/2018 JORJE CLARKE MD Ot 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 06/13/2018 JORJE CLARKE MD Ot D80.1 NONFAMILIAL HYPOGAMMAGLOBULINEMIA 06/13/2018 JORJE CLARKE MD Ot Z79.899 OTHER BOX TURNER (CURRENT) DRUG THERAPY 07/08/2018 JORJE CLARKE MD Ot 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 07/08/2018 JORJE CLARKE MD Ot D80.1 NONFAMILIAL HYPOGAMMAGLOBULINEMIA 07/08/2018 JORJE CLARKE MD Ot Z79.899 OTHER BOX TURNER (CURRENT) DRUG THERAPY 07/09/2018 JORJE CLARKE MD Ot 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 07/09/2018 JORJE CLARKE MD Ot D80.1 NONFAMILIAL HYPOGAMMAGLOBULINEMIA 07/09/2018 JORJE CLARKE MD Ot Z79.899 OTHER CUSTODIAL (CURRENT) DRUG THERAPY 07/30/2018 JORJE CLARKE MD [...] RESULTS NEGATIVE FOR ANTIGEN AND TOXIN A/B [facility] Stool bacteria identification by culture - 04/19/17 07:30 Stool bacteria identification by culture N2 [facility] Complete blood count (CBC) with automated white [...] culture - 04/19/17 07:50 Bacterial urine culture [id number] NRG COLONY COUNT >100,000/ML NRG FTX;REPORTABLE SENSITIVITY [...] susceptibility test by minimum inhibitory concentration - [facility] Complete urinalysis with reflex to culture - [...] culture - 04/25/17 12:30 Bacterial urine culture [id number] NRG COLONY COUNT <10,000 NRG Complete blood [...] microscopy SLIGHT NRG Acanthocyte detection MODERATE NRG Blood type T Indirect antibody screen panel - 08/29/18 10:25 ABO+Rh group OP NRG Blood group antibody screen NEGATIVE NRG Whole blood hemoglobin and hematocrit panel - 08/29/18 13:28 Venous blood hemoglobin measurement (mass/volume) 9.3 g/dL 11.5-16.0 Blood hematocrit (volume fraction) 29 % 35-52 Encounters ACCT No. Visit Date/Time Discharge Status Pt. Type Provider Facility Loc./Unit Complaint [id number] 07/30/2018 09:05:00 07/30/2018 23:59:59 CLS Outpatient JORJE CLARKE MD [facility] ONC OV [id number] 06/04/2018 08:39:00 07/08/2018 00:01:00 DIS Outpatient JORJE LCARKE MD [facility] ONC OV [id number] 02/05/2018 08:42:00 04/09/2018 10:48:00 DIS Outpatient JORJE CLARKE MD [facility] ONC OV [id number] 12/11/2017 08:44:00 01/14/2018 00:01:00 DIS Outpatient JORJE CLARKE MD [facility] ONC OV [id number] 08/21/2017 08:36:00 09/24/2017 00:01:00 DIS Outpatient JORJE CLARKE MD [facility] ONC OV [id number] 05/29/2017 10:50:00 06/17/2017 00:01:00 DIS Outpatient JORJE CLARKE MD [facility] ONC OV [id number] 05/02/2017 09:11:00 05/08/2017 00:01:00 DIS Outpatient JORJE CLARKE MD [facility] ONC OV [id number] 04/25/2017 12:22:00 04/25/2017 23:59:59 CLS Outpatient JACOBY SCHWAB MD [facility] LAB UTI [id number] 04/19/2017 09:00:00 04/20/2017 11:00:00 DIS Inpatient EDUARDO ROSADO DO [facility] 4TH UTI,DIZZINESS,DIARRHEA [id number] 01/10/2017 09:14:00 01/16/2017 00:01:00 DIS Outpatient JORJE CLARKE MD [facility] ONC OV [id number] 09/20/2016 08:59:00 09/26/2016 00:01:00 DIS Outpatient JORJE CLARKE MD [facility] ONC OV [id number] 04/04/2016 09:50:00 04/17/2016 00:01:00 DIS Outpatient JORJE CLARKE MD [facility] ONC OV [id number] 12/07/2015 10:12:00 01/15/2016 14:12:00 DIS Outpatient JORJE CLARKE MD [facility] ONC OV [id number] 07/20/2015 09:26:00 09/20/2015 00:01:00 DIS Outpatient JORJE CLARKE MD [facility] ONC OV [id number] 08/18/2015 09:47:00 08/18/2015 23:59:59 CLS Outpatient JORJE CLARKE MD [facility] RAD SCREENING [id number] 07/20/2015 10:33:00 07/20/2015 23:59:59 CLS Outpatient JORJE CLARKE MD [facility] RAD [id number] 03/23/2015 10:47:00 05/24/2015 00:01:00 DIS Outpatient JORJE CLARKE MD [facility] ONC OV [id number] 12/02/2014 09:23:00 01/25/2015 00:01:00 DIS Outpatient JORJE CLARKE MD [facility] ONC OV [id number] 08/18/2014 08:48:00 08/24/2014 00:01:00 DIS Outpatient JORJE CLARKE MD [facility] ONC OV [id number] 03/31/2014 09:01:00 03/31/2014 00:01:00 DIS Outpatient JORJE CLARKE MD [facility] ONC OV [id number] 10/28/2013 08:32:00 10/28/2013 00:01:00 DIS Outpatient JORJE CLARKE MD [facility] ONC OV [id number] 08/27/2013 09:03:00 08/27/2013 23:59:59 CLS Outpatient JORJE CLARKE MD [facility] RAD SCREENING [id number] 06/18/2013 09:12:00 07/25/2013 15:45:00 DIS Outpatient JORJE CLARKE MD [facility] ONC OV [id number] 03/26/2013 10:57:00 04/15/2013 00:01:00 DIS Outpatient JORJE CLARKE MD [facility] ONC OV [id number] 08/29/2018 13:02:00 ACT Inpatient JOSSELIN ARNETT, JACOBY Sutton [facility] ICU GI BLEED [id number] 12/04/2012 10:11:00 Document Registration [id number] 08/27/2012 13:07:00 Document Registration [id number] 08/20/2012 08:29:00 Document Registration [id number] 05/30/2012 13:50:00 Document Registration [id number] 02/14/2012 11:14:00 Document Registration [id number] 02/14/2012 09:18:00 Document Registration [id number] 12/13/2011 10:41:00 Document Registration [id number] 12/05/2011 10:09:00 Document Registration [id number] 10/25/2011 09:38:00 Document Registration [id number] 10/18/2011 10:51:00 Document Registration [id number] 09/06/2011 10:25:00 Document Registration [id number] 06/06/2011 10:20:00 Document Registration [id number] 03/28/2011 07:01:00 Document Registration [id number] 02/21/2011 10:18:00 Document Registration [id number] 02/21/2011 10:17:00 Document Registration [id number] 12/20/2010 13:49:00 Document Registration [id number] 11/18/2010 09:50:00 Document Registration [id number] 07/20/2010 14:17:00 Document Registration [id number] 04/07/2010 09:20:00 Document Registration
[2018-08-29] MEDS ORDERED: NFIPRATRNS NS (14:56)
[2018-08-29] MEDS ORDERED: CALC-676 PO (14:56)
[2018-08-29] MEDS: NS IV 1000 ML 1,000 ML IV SCH (15:03)
[2018-08-29] MEDS ORDERED: POLYETHYLENE GLYCOL 17 GM (MIRALAX) PACK PO PRN (15:30)
[2018-08-29] MEDS ORDERED: RT-ALBUTEROL SULF 2.5 MG/3 ML PRE-MIX VIAL INH PRN (16:00)
--- NOTE | 2018-08-29 16:11 | CONSULTATION REPORT ---
DATE OF SERVICE: 08/29/2018 ATTENDING PRIMARY CARE PHYSICIAN: Dr. Lee. HISTORY: The patient is an 87-year-old female, who reports feeling lightheaded early this morning. She states that she got up and had episodes of diarrhea, which were very dark in color. She states that she had had a few other episodes the day prior to as well. During this process of going to the bathroom and diarrhea, she felt nausea; however, no episodes of vomiting. She was seen in the Emergency Department where her vital signs were stable and a CT scan was done, which did show some fluid within the stomach. Upon further questioning, she reports that she has had a history of gastroesophageal reflux disease; however, never severe. She did have a colonoscopy, the last one done around 2012 and does remember diverticulosis; however, no other abnormalities. 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 PAST MEDICAL HISTORY: Non-Hodgkin's lymphoma and hypertension. PAST SURGICAL HISTORY: Tonsillectomy, total hysterectomy, splenectomy, cholecystectomy, appendectomy. ALLERGIES: PENICILLIN, SULFA, CLINDAMYCIN. MEDICATIONS: 1. Diphenhydramine 25 mg at bedtime. 2. Losartan 25 mg daily. 3. Fluticasone spray 16 grams b.i.d. SOCIAL HISTORY: Negative smoke, negative alcohol. FAMILY HISTORY: Noncontributory. REVIEW OF SYSTEMS: Well-nourished female, currently in no acute distress. She is not experiencing any shortness of breath or difficulty breathing. No chest pain, palpitations, or diaphoresis. She did have initial nausea and vomiting; however, none since being admitted to the hospital. She did have several episodes of diarrhea, which were very dark in color. No red blood per rectum. No fever or chills. No recent inadvertent weight loss. All other review of systems are negative. PHYSICAL EXAMINATION: VITAL SIGNS: Temperature 97.6, blood pressure 117/61, pulse 98, respirations 18, pulse ox 97% on room air. CHEST: Clear. Good breath sounds bilaterally. HEART: Regular. No murmurs. EXTREMITIES: No lower extremity edema. Negative Homans sign. HEENT: No scleral icterus. NECK: No cervical lymphadenopathy. ABDOMEN: Soft, nontender and nondistended. No palpable masses. SKIN: Warm and dry. LABORATORY DATA: WBC 14.7, hemoglobin 9.3, hematocrit 29, platelets 204, BUN 57, creatinine of 1.11. ASSESSMENT AND PLAN: An 87-year-old female with potentially upper GI bleed as well as possible lower gastrointestinal bleed. She is symptomatic due to her what sounds to be weakness, fatigue and potentially a vasovagal episode. She does have a history of gastroesophageal reflux disease as well as diverticulosis and was also found to be anemic. We will proceed with an EGD and colonoscopy on this admission. Job ID: [id number] DocumentID: [id number] Dictated Date: 08/29/2018 15:24:50 [employer]re [employer]ger Date: 08/29/2018 16:10:56 Dictated By: LANCE GAN MD MTDD
[2018-08-29 16:32] LABS: HEMOGLOBIN 9.8 G/DL (11.5-16.0)
--- NOTE | 2018-08-29 16:39 | Conscious Sedation/ASA ---
Conscious Sedation Pre-Proced Time 16:30 ASA Score 2 For ASA 3 and 4: Consider anesthesia and medical clearance. Also, for patients with a history of failed moderate sedation consider anesthesia. Airway Lungs Heart ASA score ASA 1: a normal healthy patient ASA 2: a patient with a mild systemic disease (mid diabetes, controlled hypertension, obesity ASA 3: a patient with a severe systemic disease that limits activity (angina , COPD, prior Myocardial infarction) ASA 4: a patient with an incapacitating disease that is a constant threat to life (CHF, renal failure) ASA 5: a moribund patient not expected to survive 24 hrs. (ruptured aneurysm) ASA 6: a declared brain patient whose organs are being harvested. For emergent operations, add the letter E after the classification Mallampati Classification Grade 2 Sedation Plan Analgesia, Amnesia, Plan communicated to team members, Discussed options with patient/fam, Discussed risks with patient/fam The patient is an appropriate candidate to undergo the planned procedure, sedation, and anesthesia. The patient immediately re-assessed prior to indication. LANCE GAN MD Aug 29, 2018 16:39
--- NOTE | 2018-08-29 16:40 | Progress Note-Pre Operative ---
Pre-Operative Progress Note H&P Reviewed The H&P was reviewed, patient examined and no changes noted. Date Seen by Provider: Aug 29, 2018 Time Seen by Provider: 16:30 Date H&P Reviewed: Aug 29, 2018 Time H&P Reviewed: 16:30 Pre-Operative Diagnosis: nausea, black diarrhea, anemia LANCE GAN MD Aug 29, 2018 16:40
[2018-08-29 20:25] LABS: HEMOGLOBIN 9.1 G/DL (11.5-16.0)
[2018-08-29] MEDS: PANTOPRAZOLE 40 MG (PROTONIX) VIAL IV SCH (21:22)
[2018-08-30] VITALS (17 sets, daily range): BP systolic 91–133; BP diastolic 47–63
[2018-08-30 04:12] LABS: BASOPHILS % (AUTO) 0 % (0-10); EOSINOPHILS # (AUTO) 0.1 10^3/uL (0.0-0.3); EOSINOPHILS % (AUTO) 0 % (0-10); HEMATOCRIT 29 % (35-52); HEMOGLOBIN 9.6 G/DL (11.5-16.0); LYMPHOCYTES # (AUTO) 3.9 X 10^3 (1.0-4.0); LYMPHOCYTES % (AUTO) 25 % (12-44); MEAN CORPUSCULAR HEMOGLOBIN 31 PG (25-34); MEAN CORPUSCULAR HGB CONC 33 G/DL (32-36); MEAN CORPUSCULAR VOLUME 95 FL (80-99); MEAN PLATELET VOLUME 12.6 FL (7.4-10.4); MONOCYTES # (AUTO) 1.7 X 10^3 (0.0-1.0); MONOCYTES % (AUTO) 11 % (0-12); NEUTROPHILS # (AUTO) 10.1 X 10^3 (1.8-7.8); NEUTROPHILS % (AUTO) 64 % (42-75); PLATELET COUNT 189 10^3/uL (130-400); RED BLOOD COUNT 3.06 10^6/uL (4.35-5.85); RED CELL DISTRIBUTION WIDTH 16.2 % (10.0-14.5); WHITE BLOOD COUNT 15.9 10^3/uL (4.3-11.0)
[2018-08-30 04:36] LABS: ALANINE AMINOTRANSFERASE 22 U/L (0-55); ALBUMIN 3.4 GM/DL (3.2-4.5); ALKALINE PHOSPHATASE 65 U/L (40-136); BUN/CREATININE RATIO 63; CALCIUM 8.4 MG/DL (8.5-10.1); CARBON DIOXIDE 16 MMOL/L (21-32); CREATININE SERUM 0.84 MG/DL (0.60-1.30); GFR ESTIMATED > 60; GLUCOSE 100 MG/DL (70-105); MAGNESIUM 2.1 MG/DL (1.8-2.4); PHOSPHORUS 2.4 MG/DL (2.3-4.7); POTASSIUM 4.5 MMOL/L (3.6-5.0); SODIUM 145 MMOL/L (135-145); TOTAL PROTEIN 5.1 GM/DL (6.4-8.2)
[2018-08-30 04:43] LABS: CHLORIDE 120 MMOL/L (98-107)
[2018-08-30] MEDS ORDERED: POTASSIUM CL 10MEQ/50ML IVPB 50 ML IV SCH (06:00)
[2018-08-30] MEDS ORDERED: MAGNESIUM 1 GM/100 ML IVPB 100 ML IV SCH (06:00)
[2018-08-30] MEDS ORDERED: KCL 20 MEQ TAB (K-DUR) PO SCH (06:00)
[2018-08-30 08:25] LABS: HEMOGLOBIN 9.5 G/DL (11.5-16.0)
--- NOTE | 2018-08-30 08:40 | Progress Note-Hospitalist ---
Subjective HPI/CC On Admission Date Seen by Provider: Aug 30, 2018 Time Seen by Provider: 07:30 CC: GIB HPI: This is an 87yoWF clinic patient of Dr Schwab who presented to the ER w/ melena and slight hemoptysis. Pt was found to be stable but already hgb dropped from [address] Gan will perform scopes in the morning. Subjective/Events-last exam Patient reports she feels well this morning she denies heartburn or abdominal pain. She is eating prepped for panendoscopy by Dr. GAN and the nurse reports her have been several [id number] stools with no evidence for bright red blood after receiving MiraLAX. Patient denies any chest symptoms shortness of breath or lightheadedness. Objective Exam Vital Signs Vital Signs Date Time Temp Pulse Resp B/P (MAP) Pulse Ox O2 Delivery O2 Flow Rate FiO2 08/30/18 07:56 97 Room Air 08/30/18 06:00 92 20 106/55 (72) 08/30/18 04:00 97.9 08/29/18 15:30 21 Capillary Refill : Greater Than 3 Seconds General Appearance: No Apparent Distress, WD/WN Respiratory: Chest Non Tender, Lungs Clear, Normal Breath Sounds, No Accessory Muscle Use, No Respiratory Distress Cardiovascular: Regular Rate, Rhythm, No Edema, No JVD, No Murmur, Normal Peripheral Pulses, Gallop/S4 Gastrointestinal: Normal Bowel Sounds, No Organomegaly, No Pulsatile Mass, Non Tender, Soft Extremity: Normal Capillary Refill, Normal Inspection, Normal Range of Motion, Non Tender, No Calf Tenderness, No Pedal Edema Results/Procedures Lab Laboratory Tests 08/29/18 09:45 08/29/18 13:28 08/29/18 16:10 08/29/18 20:09 08/30/18 00:40 08/30/18 04:05 08/30/18 08:20 Patient resulted labs reviewed. Assessment/Plan Assessment and Plan Assess & Plan/Chief Complaint 1. GI bleed suspect upper tract source patient scheduled for panendoscopy today. Last blood counts revealed a higher hemoglobin that 9.6 despite IV fluids overnight suggesting strong possibility that bleeding has ceased for now. Vital signs of been stable. We'll await panendoscopy results. 2. History of hypertension and hold antihypertensive medication for now. 3. Past history of non-Hodgkin's lymphoma no evidence for recurrence. 4. 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 Clinical Quality Measures DVT/VTE Risk/Contraindication: Risk Factor Score Per Nursin RFS Level Per Nursing on Admit: 2=Moderate JACOBY SCHWAB MD Aug 30, 2018 08:40
[2018-08-30] MEDS: PANTOPRAZOLE 40 MG (PROTONIX) VIAL IV SCH ×2 (09:21→20:50)
[2018-08-30] MEDS: NS IV 1000 ML 1,000 ML IV SCH (09:21)
[2018-08-30 12:19] LABS: HEMOGLOBIN 9.4 G/DL (11.5-16.0)
[2018-08-30] MEDS ORDERED: LIDOCAINE JELLY 2% 6 ML SYRINGE ONE (13:25)
[2018-08-30] MEDS ORDERED: MIDAZOLAM 2 MG/2 ML (VERSED) VIAL ONE ×4 (13:25)
[2018-08-30] MEDS ORDERED: fentaNYL INJECTION 100 MCG/2 ML AMP ONE (13:25)
[2018-08-30] MEDS ORDERED: HURRICAINE EXT TUBE (BENZOCAINE) ONE (13:25)
[2018-08-30] MEDS ORDERED: NS IV 500 ML 500 ML ONE (13:26)
[2018-08-30] MEDS ORDERED: NS IV 500 ML 500 ML IV PRN (14:44)
[2018-08-30] MEDS ORDERED: HURRICAINE EXT TUBE (BENZOCAINE) XX PRN (14:45)
[2018-08-30] MEDS ORDERED: MIDAZOLAM 2 MG/2 ML (VERSED) VIAL IVP ONE (14:45)
[2018-08-30] MEDS ORDERED: LIDOCAINE JELLY 2% 6 ML SYRINGE MM PRN (14:45)
[2018-08-30] MEDS ORDERED: fentaNYL INJECTION 100 MCG/2 ML AMP IVP ONE (14:45)
--- NOTE | 2018-08-30 15:22 | Progress Note-Post Operative ---
Post-Operative Progess Note Surgeon (s)/Technology Solutions Architect (s) Surgeon LANCE GAN MD Technology Solutions Architect: none Pre-Operative Diagnosis nausea, black diarrhea, anemia Post-Operative Diagnosis grade 3 esophageal varices, no active bleed, reflux esophagitis(stage 2), small HH(1cm), mild-moderate gastritis. mild chronic stage 2 ext and int hemorrhoids. Procedure & Operative Findings Date of Procedure 08/30/18 Procedure Performed/Findings EGD with bx. Colonoscopy. Anesthesia Type CS Estimated Blood Loss Estimated blood loss (mL): minimal Specimens/Packing Specimens Removed GE jxn, antrum LANCE GAN MD Aug 30, 2018 15:22
[2018-08-30] MEDS ORDERED: PANT40TA2 PO (15:26)
--- NOTE | 2018-08-30 15:28 | Discharge Inst-Surgical ---
D/C Lap Instructions-KIDCarmel New, Converted, or Re-Newed RX: RX on Chart Follow Up Appt in 1 week Activity as tolerated High Fiber Diet 25g or more per day Avoid Alcohol, Caffeine, Spicy [place] and Acid foods. Drink 64 fluid oz or more of fluids per day. Symptoms to Report: Fever over 101 degree F, Nausea/Vomiting If any problems/questions: Contact your physician or go to Emergency Room LANCE GAN MD Aug 30, 2018 15:28
[2018-08-30 16:47] LABS: HEMOGLOBIN 9.7 G/DL (11.5-16.0)
--- NOTE | 2018-08-30 22:39 | OPERATIVE REPORT ---
DATE OF SERVICE: 08/30/2018 ATTENDING PRIMARY CARE PHYSICIAN: Dr. Lee. PREOPERATIVE DIAGNOSES: Nausea, dark tarry stools and blood loss anemia. POSTOPERATIVE DIAGNOSES: Grade III esophageal varices with no active bleeding. Reflux esophagitis stage II, small hiatal hernia approximately 1 cm in size, mild to moderate gastritis. Chronic stage II external and internal hemorrhoids. Remainder of the rectum and colon were normal. PROCEDURE: EGD with biopsy, colonoscopy. SURGEON: Lance Gan MD ANESTHESIA: Conscious sedation. ESTIMATED BLOOD LOSS: Minimal. FINDINGS: EGD grade III esophageal varices with an area of what appeared to be a chronic granulomatous tissue from a previous bleed of one of the esophageal varices. There was no active bleeding identified. There was a small hiatal hernia approximately 1 cm in size with a reflux esophagitis stage II. There was a mild to moderate gastritis. No formal ulcerations, polyps or any neoplasms. Pylorus and duodenum appeared normal. Colonoscopy, chronic stage II external and internal hemorrhoids, not actively edematous nor inflamed and no bleeding. The remainder of the rectum and colon were normal. No polyps or any bleeding source was identified. DISPOSITION: The patient tolerated the procedure well. INDICATIONS: The patient is an 87-year-old female who reported feeling lightheaded earlier during the morning of the day of admission. She had reported that she had experienced diarrhea, which were very dark in coloration and had several 24 hours prior; however, she felt weaker and then during the process of going to the bathroom and having diarrhea, she felt nauseous and very weak. She was brought to the Emergency Department via EMS and was stable. A CT scan was done, which did show fluid within the stomach. Upon further questioning, she does report a history of gastroesophageal reflux disease; however, never severe. She did have a colonoscopy with the last one done around 2012 and does remember diverticulosis; however, no other abnormalities. 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 DESCRIPTION OF PROCEDURE: The patient was brought to the endoscopy suite, laid in left lateral decubitus position. After adequate IV pain and sedating medications and conscious sedation anesthesia, the mouthpiece was applied. The endoscope was placed in the mouth, visualizing the pharynx and hypopharyngeal region. Vocal cords, epiglottis and vallecula identified and appeared to be normal. The endoscope was then gently intubated at the esophageal opening and esophagus insufflated. The endoscope was then advanced to the first, second and third portions of the esophagus. At the distal esophagus, grade III esophageal varices identified with an area of chronic granulomatous tissue, which most likely indicated previous site of bleeding; however, not actively bleeding. These were left alone. Below this at the gastroesophageal junction, a reflux esophagitis stage II identified. A biopsy was taken of the GE junction with forceps to visualization of good hemostasis. The endoscope was then easily advanced in the stomach and endoscope retroflexed, visualizing a small hiatal hernia approximately 1 cm in size. There was a mild to moderate gastritis. No formal ulcerations, polyps or any neoplasms identified. A biopsy was taken of the stomach antrum to rule out H. pylori. The endoscope was then advanced to the pylorus and the first and second portions of the duodenum, which appeared normal with no ulcerations or any distal obstructions. The endoscope was then slowly withdrawn while taking a second look and suctioning of residual air with no additional findings. The patient tolerated this portion of the procedure well. She does have grade III esophageal varices and these will need to be monitored. We will have her follow up and refer her to gastroenterology at [facility] for possible esophageal banding to reduce the risk of recurrent bleeding. She may also want to follow medical guidelines including keeping her blood pressure down as well as incorporating a low dose beta edita. Under the same conscious sedation anesthesia, we then proceeded with colonoscopy portion of the procedure. A digital rectal examination was performed, which revealed mild chronic stage II external and internal hemorrhoids, not actively edematous nor inflamed and no bleeding. Normal sphincter tone was felt and there are no palpable masses. The endoscope was then intubated into the anus and the rectum gently insufflated. There was lots of dark tarry elements of the distal rectum and colon. However, this was irrigated and suctioned as well as possible. The endoscope was then advanced to the valves of Frankel in the rectum with no polyps or any neoplasms identified. Through the sigmoid colon, there was diffuse isolated diverticulosis identified; however, no active bleeding. The endoscope was then advanced to the remainder of the descending, transverse and ascending colon to the cecum. These segments were normal. There were no polyps or any neoplasms identified throughout the colon or rectum. The endoscope was then slowly withdrawn while taking a second look and suctioning of residual air with no additional findings. The patient tolerated the procedure well. We will recommend continued medical management with high fiber diet with at least 25 grams of fiber per day as well as at least 64 fluid ounces of water daily to promote soft stools on a daily basis. She does not need another colonoscopy for at least 5 years; however, sooner if she becomes symptomatic. Job ID: [id number] DocumentID: [id number] Dictated Date: 08/30/2018 15:39:21 Medical Legal Investigator Date: 08/30/2018 22:38:39 Dictated By: LANCE GAN MD
[2018-08-31 04:00] VITALS: BP 112/53
[2018-08-31 06:00] LABS: BASOPHILS # (AUTO) 0.1 10^3/uL (0.0-0.1); BASOPHILS % (AUTO) 0 % (0-10); EOSINOPHILS # (AUTO) 0.2 10^3/uL (0.0-0.3); EOSINOPHILS % (AUTO) 1 % (0-10); HEMATOCRIT 27 % (35-52); HEMOGLOBIN 8.7 G/DL (11.5-16.0); LYMPHOCYTES # (AUTO) 2.3 X 10^3 (1.0-4.0); LYMPHOCYTES % (AUTO) 18 % (12-44); MEAN CORPUSCULAR HEMOGLOBIN 31 PG (25-34); MEAN CORPUSCULAR HGB CONC 32 G/DL (32-36); MEAN CORPUSCULAR VOLUME 96 FL (80-99); MEAN PLATELET VOLUME 12.7 FL (7.4-10.4); MONOCYTES # (AUTO) 1.2 X 10^3 (0.0-1.0); MONOCYTES % (AUTO) 10 % (0-12); NEUTROPHILS # (AUTO) 8.9 X 10^3 (1.8-7.8); NEUTROPHILS % (AUTO) 71 % (42-75); PLATELET COUNT 174 10^3/uL (130-400); RED BLOOD COUNT 2.84 10^6/uL (4.35-5.85); RED CELL DISTRIBUTION WIDTH 16.5 % (10.0-14.5); WHITE BLOOD COUNT 12.6 10^3/uL (4.3-11.0)
[2018-08-31 06:15] LABS: BUN/CREATININE RATIO 41; CALCIUM 8.3 MG/DL (8.5-10.1); CARBON DIOXIDE 19 MMOL/L (21-32); CHLORIDE 119 MMOL/L (98-107); CREATININE SERUM 0.75 MG/DL (0.60-1.30); GFR ESTIMATED > 60; GLUCOSE 98 MG/DL (70-105); POTASSIUM 4.2 MMOL/L (3.6-5.0); SODIUM 146 MMOL/L (135-145)
[2018-08-31 08:00] VITALS: BP 136/64
[2018-08-31] MEDS ORDERED: PROPRANOLOL 20 MG (INDERAL) TABLET PO NR (08:30)
[2018-08-31] MEDS: PANTOPRAZOLE 40 MG (PROTONIX) VIAL IV SCH (08:52)
--- NOTE | 2018-08-31 10:47 | Progress Note (SOAP) ---
Subjective Date Seen by a Provider: Aug 31, 2018 Time Seen by a Provider: 10:00 Subjective/Events-last exam doing well. pain controlled. tolerating diet and ambulating well. IS improving but still not to target. Objective Exam Vital Signs Date Time Temp Pulse Resp B/P (MAP) Pulse Ox O2 Delivery O2 Flow Rate FiO2 08/31/18 06:31 95 Room Air 08/31/18 04:00 99.3 98 18 112/53 (72) 98 Room Air 08/30/18 22:50 98.6 97 18 133/55 (81) 98 Room Air 08/30/18 22:00 98.5 08/30/18 21:00 98.6 08/30/18 20:00 Room Air 08/30/18 20:00 98.6 08/30/18 19:15 95 Room Air 08/30/18 19:00 90 08/30/18 19:00 98.6 62 16 111/52 (71) 97 Room Air 08/30/18 18:00 85 17 Room Air 08/30/18 16:42 Room Air 08/30/18 16:00 77 15 98/48 (65) 90 Room Air 08/30/18 13:00 90 9 110/58 (75) 98 Room Air 08/30/18 12:00 Room Air 08/30/18 12:00 92 16 113/55 (74) 95 Room Air 08/30/18 11:00 90 17 111/55 (73) 96 Room Air I & O 08/31/18 07:00 Intake Total 1020 ml Output Total 1500 ml Balance -480 ml Capillary Refill : Greater Than 3 Seconds General Appearance: No Apparent Distress HEENT: PERRL/EOMI Neck: Full Range of Motion Respiratory: Normal Breath Sounds Cardiovascular: Regular Rate, Rhythm Gastrointestinal: normal bowel sounds, non tender, soft Extremity: Normal Capillary Refill Neurologic/Psychiatric: Alert, Oriented x3 Skin: Normal Color Lymphatic: No Adenopathy Results Lab Laboratory Tests 08/30/18 12:15: Hemoglobin 9.4L, Hematocrit 29L 08/30/18 16:44: Hemoglobin 9.7L, Hematocrit 31L 08/31/18 05:45: Hemoglobin 8.7L, Hematocrit 27L, White Blood Count 12.6H, Red Blood Count 2.84L , Mean Corpuscular Volume 96, Mean Corpuscular Hemoglobin 31, Mean Corpuscular Hemoglobin Concent 32, Red Cell Distribution Width 16.5H, Platelet Count 174, Mean Platelet Volume 12.7H, Neutrophils (%) (Auto) 71, Lymphocytes (%) (Auto) 18 , Monocytes (%) (Auto) 10, Eosinophils (%) (Auto) 1, Basophils (%) (Auto) 0, Neutrophils # (Auto) 8.9H, Lymphocytes # (Auto) 2.3, Monocytes # (Auto) 1.2H, Eosinophils # (Auto) 0.2, Basophils # (Auto) 0.1, Sodium Level 146H, Potassium Level 4.2, Chloride Level 119H, Carbon Dioxide Level 19L, Anion Gap 8, Blood Urea Nitrogen 31H, Creatinine 0.75, Estimat Glomerular Filtration Rate > 60, BUN /Creatinine Ratio 41, Glucose Level 98, Calcium Level 8.3L 08/31/18 09:05: Microbiology 08/29/18 MRSA Screen - Final, Complete MRSA not isolated Assessment/Plan Assessment/Plan Assess & Plan/Chief Complaint Follow Up Appt in 2 weeks Activity as tolerated No driving for 24 hours No driving while on pain medications Incentive Spirometry use every 2 hours while awake Regular Diet Symptoms to Report: Fever over 101 degree F, Nausea/Vomiting Infection Signs and Symptoms to report: Increased redness, Foul odor of wound, Increased drainage Bathing instructions: May shower Operative Area Clean/Dry; Keep incision clean/dry If any problems/questions: Contact your physician or go to Emergency Room Clinical Quality Measures DVT/VTE Risk/Contraindication: Risk Factor Score Per Nursin RFS Level Per Nursing on Admit: 2=Moderate LANCE GAN MD Aug 31, 2018 10:47
[2018-08-31 12:00] VITALS: BP 122/63
[2018-08-31] MEDS ORDERED: PROP60CA PO (12:59)
--- NOTE | 2018-08-31 13:08 | Discharge Summary-Hospitalist ---
Diagnosis/Chief Complaint Date of Admission Aug 29, 2018 at 13:02 Date of Discharge Discharge Date: Aug 31, 2018 Discharge Time: 13:02 Admission Diagnosis Assessment: GIB Anemia Plan: Scopes in am H/H monitoring Discharge Diagnosis (1) GI bleeding Status: Acute Discharge Summary Discharge Physical Exam Allergies: Coded Allergies: Penicillins (Verified Allergy, Unknown, 04/19/17) Sulfa (Sulfonamide Antibiotics) (Verified Allergy, Unknown, 04/19/17) clindamycin (Verified Allergy, Unknown, 04/19/17) Vitals & I&Os Vital Signs Date Time Temp Pulse Resp B/P (MAP) Pulse Ox O2 Delivery O2 Flow Rate FiO2 08/31/18 08:00 98.7 85 18 136/64 (88) 100 Room Air 08/29/18 15:30 21 General Appearance: No Apparent Distress, WD/WN Respiratory: Chest Non Tender, Lungs Clear, Normal Breath Sounds, No Accessory Muscle Use, No Respiratory Distress Cardiovascular: Regular Rate, Rhythm, No Edema, No Gallop, No JVD, No Murmur, Normal Peripheral Pulses Gastrointestinal: Normal Bowel Sounds, No Organomegaly, No Pulsatile Mass, Non Tender, Soft Hospital Course Patient presented to the emergency room reporting coffee-ground emesis as well as melena. Emesis had occurred earlier in the day and melena had begun the day before. She was feeling weak with this. Initial hemoglobin was in the 11 range down about 2 g from her baseline levels. She had no previous problems with GI bleeding or peptic ulcer disease. Dr. GAN was consulted and the patient underwent lemons endoscopy. Pertinent findings were grade 3 distal esophageal varices as I recall that they did not note any evidence for gastric varices. Other meds granulation type tissue per Dr. GAN's report highly suspicious for bleeding site was not actively bleeding at the time of the procedure. There was small amount of dark blood in the upper GI tract and some significant dark blood but no fresh blood on colonoscopy. Diverticular disease confined to the sigmoid colon was noted with no other potential bleeding sites and no evidence for neoplasia. Patient has past history of non-Hodgkin's lymphoma but no previous history for cirrhosis no alcohol intake and no past known history of hepatitis. Iron studies including ferritin level and hepatitis panel including A, B, and C serologies are pending. The patient will be following up with Dr. GAN next week to plans on GI referral to which was discussed with the patient and for which she is agreeable. She is being sent home on her home medications plus pantoprazole 40 mg by mouth daily in addition to Inderal LA 60 mg daily. Side effects were discussed with the patient. Also discussed the fact that should she redevelop melena or hematemesis she's to return to the emergency room. It would likely be variceal and bleeding in etiology and it would be in her best interest to be transferred either for [facility] for urgent endoscopy considering that we do not have banding capability. I will see her back in the office week after next and we' ll repeat blood counts at that time and discuss pending serologies. In discussion of cirrhosis and portal hypertension, medications and treatment options, over 30 minutes discharge planning care time spent. Patient has stable vital signs heart rate was down to 70 range having received 20 mg of short-acting propranolol with a hemoglobin of 8.6. 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 Labs (last 24 hrs) Laboratory Tests 08/30/18 16:44: Hemoglobin 9.7L, Hematocrit 31L 08/31/18 05:45: Hemoglobin 8.7L, Hematocrit 27L, White Blood Count 12.6H, Red Blood Count 2.84L , Mean Corpuscular Volume 96, Mean Corpuscular Hemoglobin 31, Mean Corpuscular Hemoglobin Concent 32, Red Cell Distribution Width 16.5H, Platelet Count 174, Mean Platelet Volume 12.7H, Neutrophils (%) (Auto) 71, Lymphocytes (%) (Auto) 18 , Monocytes (%) (Auto) 10, Eosinophils (%) (Auto) 1, Basophils (%) (Auto) 0, Neutrophils # (Auto) 8.9H, Lymphocytes # (Auto) 2.3, Monocytes # (Auto) 1.2H, Eosinophils # (Auto) 0.2, Basophils # (Auto) 0.1, Sodium Level 146H, Potassium Level 4.2, Chloride Level 119H, Carbon Dioxide Level 19L, Anion Gap 8, Blood Urea Nitrogen 31H, Creatinine 0.75, Estimat Glomerular Filtration Rate > 60, BUN /Creatinine Ratio 41, Glucose Level 98, Calcium Level 8.3L 08/31/18 09:05: Microbiology 08/29/18 MRSA Screen - Final, Complete MRSA not isolated Patient resulted labs reviewed. Pending Labs Laboratory Tests 08/31/18 05:45: White Blood Count 12.6, Red Blood Count 2.84, Hemoglobin 8.7, Hematocrit 27, Mean Corpuscular Volume 96, Mean Corpuscular Hemoglobin 31, Mean Corpuscular Hemoglobin Concent 32, Red Cell Distribution Width 16.5, Platelet Count 174, Mean Platelet Volume 12.7, Neutrophils (%) (Auto) 71, Lymphocytes (%) (Auto) 18 , Monocytes (%) (Auto) 10, Eosinophils (%) (Auto) 1, Basophils (%) (Auto) 0, Neutrophils # (Auto) 8.9, Lymphocytes # (Auto) 2.3, Monocytes # (Auto) 1.2, Eosinophils # (Auto) 0.2, Basophils # (Auto) 0.1, Sodium Level 146, Potassium Level 4.2, Chloride Level 119, Carbon Dioxide Level 19, Anion Gap 8, Blood Urea Nitrogen 31, Creatinine 0.75, Estimat Glomerular Filtration Rate > 60, BUN/ Creatinine Ratio 41, Glucose Level 98, Calcium Level 8.3 08/31/18 09:05: Iron Level [Pending], Total Iron Binding Capacity [Pending], Unsaturated Iron Binding Capacity [Pending], Transferrin % Saturation [Pending], Ferritin [ Pending], Hepatitis A IgM Antibody [Pending], Hepatitis B Surface Antigen [ Pending], Hepatitis B Core IgM Antibody [Pending], Hepatitis C Antibody [Pending ] Discussion & Recommendations Discharge Planning: >30 minutes discharge planning Discharge Home Medications: Active Scripts Active Propranolol HCl ER (Propranolol HCl) 60 Mg Cap.sa.24h 60 Mg PO DAILY 30 Days Protonix (Pantoprazole Sodium) 40 Mg Tablet.dr 40 Mg PO DAILY Reported Ipratropium [place] 15 Ml Naspr 1 [place] NS DAILY PRN Calcium 500 + Vit D 200 Caplet (Calcium Carbonate/Vitamin D3) 1 Each Tablet 1 Tab PO DAILY Losartan Potassium 25 Mg Tablet 25 Mg PO DAILY Daily Vitamin + Iron (Multivitamins with Iron) 1 Each Tablet 1 Tab PO DAILY Benadryl (Diphenhydramine HCl) 25 Mg Capsule 25 Mg PO HS Vitamin C (Ascorbate Calcium) 500 Mg Tablet 500 Mg PO DAILY Instructions to patient/family Please see electronic discharge instructions given to patient. Clinical Quality Measures DVT/VTE Risk/Contraindication: Risk Factor Score Per Nursin RFS Level Per Nursing on Admit: 2=Moderate Copy Copies To 1: JACOBY SCHWAB MD Copies To 2: ELISABETH GHOTRA Problem Qualifiers (1) GI bleeding: GI bleed type/associated pathology: unspecified gastrointestinal hemorrhage type Qualified Codes: K92.2 - Gastrointestinal hemorrhage, unspecified JACOBY SCHWAB MD Aug 31, 2018 13:08
[2018-08-31 13:43] VITALS: BP 122/63
[2018-09-03 06:36] LABS: HEPATITIS C ANTIBODY C Non-Reactive (Non-Reactive)
== END 2018-08-31 13:46 | disposition home or self-care (01) | DRG 369 ==
LOC: EDUNIT# 09:39 → ER 09:40 → ICU 13:02 → 4TH 08-30 22:43
PROVIDERS: ADMIT Internal Medicine; ATTEND Internal Medicine
PROC: 0DJD8ZZ Inspection of Lower Intestinal Tract, Via Natural or Artificial Opening Endoscopic (ICD-10-PCS; 2018-08-30)
PROC: 0DB48ZX Excision of Esophagogastric Junction, Via Natural or Artificial Opening Endoscopic, Diagnostic (ICD-10-PCS; principal; 2018-08-30 13:20)
PROC: 0DB78ZX Excision of Stomach, Pylorus, Via Natural or Artificial Opening Endoscopic, Diagnostic (ICD-10-PCS; 2018-08-30 13:20)
DX: I85.01 Esophageal varices with bleeding (principal); C85.90 Non-Hodgkin lymphoma, unspecified, unspecified site; D84.9 Immunodeficiency, unspecified; K92.0 Hematemesis; I10 Essential (primary) hypertension; D64.9 Anemia, unspecified; M19.91 Primary osteoarthritis, unspecified site; K21.0 Gastro-esophageal reflux disease with esophagitis; Z66 Do not resuscitate; K44.9 Diaphragmatic hernia without obstruction or gangrene; K29.70 Gastritis, unspecified, without bleeding; K57.30 Diverticulosis of large intestine without perforation or abscess without bleeding; K64.1 Second degree hemorrhoids; S01.91XA Laceration without foreign body of unspecified part of head, initial encounter; W19.XXXA Unspecified fall, initial encounter; Z90.81 Acquired absence of spleen; Z88.0 Allergy status to penicillin; Z88.1 Allergy status to other antibiotic agents; Z88.2 Allergy status to sulfonamides
CPT/HCPCS: 36415; 70450; 71045; 72125; 74177; 80048; 80053; 80074; 82728; 83540; 83735; 84100; 84484; 85007; 85014; 85018; 85025; 85027; 86850; 86900; 86901; 86902; 86922; 87081; 93005; 96361; 96374; 96375

== ENCOUNTER 2018-09-24 08:42 | Outpatient (RCR) | payer MEDICARE ==
[2018-07-30 09:37] LABS: BASOPHILS # (AUTO) 0.1 10^3/uL (0.0-0.1); BASOPHILS % (AUTO) 1 % (0-10); EOSINOPHILS # (AUTO) 0.3 10^3/uL (0.0-0.3); EOSINOPHILS % (AUTO) 4 % (0-10); HEMATOCRIT 38 % (35-52); HEMOGLOBIN 12.7 G/DL (11.5-16.0); LYMPHOCYTES # (AUTO) 2.7 X 10^3 (1.0-4.0); LYMPHOCYTES % (AUTO) 32 % (12-44); MEAN CORPUSCULAR HEMOGLOBIN 31 PG (25-34); MEAN CORPUSCULAR HGB CONC 33 G/DL (32-36); MEAN CORPUSCULAR VOLUME 93 FL (80-99); MEAN PLATELET VOLUME 12.1 FL (7.4-10.4); MONOCYTES # (AUTO) 1.1 X 10^3 (0.0-1.0); MONOCYTES % (AUTO) 13 % (0-12); NEUTROPHILS # (AUTO) 4.1 X 10^3 (1.8-7.8); NEUTROPHILS % (AUTO) 50 % (42-75); PLATELET COUNT 278 10^3/uL (130-400); WHITE BLOOD COUNT 8.2 10^3/uL (4.3-11.0)
[2018-07-30 09:52] LABS: ALANINE AMINOTRANSFERASE 20 U/L (0-55); ALBUMIN 4.2 GM/DL (3.2-4.5); ALKALINE PHOSPHATASE 86 U/L (40-136); BILIRUBIN,TOTAL 1.1 MG/DL (0.1-1.0); BUN/CREATININE RATIO 20; CALCIUM 9.9 MG/DL (8.5-10.1); CARBON DIOXIDE 22 MMOL/L (21-32); CHLORIDE 111 MMOL/L (98-107); GFR ESTIMATED > 60; GLUCOSE 100 MG/DL (70-105); POTASSIUM 3.7 MMOL/L (3.6-5.0); SODIUM 142 MMOL/L (135-145); TOTAL PROTEIN 6.6 GM/DL (6.4-8.2)
[~2018-09-24 08:42] MED LIST changes: +ACETAMINOPHEN 500 MG TAB (TYLENOL) CANCER CTR ONE; +ACETAMINOPHEN 500 MG TAB (TYLENOL) CANCER CTR PO PRN; +ACETAMINOPHEN 500 MG TAB (TYLENOL) PO SCH; +CALC-676 PO; +IMMU GLOBULIN,GAMMA (IGG) 100 ML IV SCH; +IMMU GLOBULIN,GAMMA (IGG) 50 ML IV SCH; +IMMUNE GLOBULIN,GAMMA (IGG) 200 ML IV SCH; +LOSA25TA41 PO; +NFIPRATRNS NS; +NS (IVPB) 250 ML IV SCH; +NS (IVPB) CANCER CENTER 250 ML IV SCH; +PANT40TA2 PO; +PROP60CA PO; +diphenhydrAMINE 25 MG TAB (BENADRYL) CANCER CENTER PO ONE; +diphenhydrAMINE 25 MG TAB (BENADRYL) CANCER CENTER PO SCH; +diphenhydrAMINE 25 MG TAB (BENADRYL) PO SCH; +riTUXimab 500 MG, riTUXimab FOR IV INJ CONC 100 MG in NS (IVPB) CANCER CENTER ONLY 140 ML IV SCH
[2018-09-24 09:33] LABS: BASOPHILS # (AUTO) 0.1 10^3/uL (0.0-0.1); BASOPHILS % (AUTO) 1 % (0-10); EOSINOPHILS # (AUTO) 0.4 10^3/uL (0.0-0.3); EOSINOPHILS % (AUTO) 3 % (0-10); HEMATOCRIT 34 % (35-52); HEMOGLOBIN 10.4 G/DL (11.5-16.0); LYMPHOCYTES # (AUTO) 2.1 X 10^3 (1.0-4.0); LYMPHOCYTES % (AUTO) 17 % (12-44); MEAN CORPUSCULAR HEMOGLOBIN 29 PG (25-34); MEAN CORPUSCULAR HGB CONC 31 G/DL (32-36); MEAN CORPUSCULAR VOLUME 93 FL (80-99); MEAN PLATELET VOLUME 12.2 FL (7.4-10.4); MONOCYTES # (AUTO) 1.6 X 10^3 (0.0-1.0); MONOCYTES % (AUTO) 14 % (0-12); NEUTROPHILS # (AUTO) 7.7 X 10^3 (1.8-7.8); NEUTROPHILS % (AUTO) 65 % (42-75); PLATELET COUNT 367 10^3/uL (130-400); RED CELL DISTRIBUTION WIDTH 15.3 % (10.0-14.5); WHITE BLOOD COUNT 11.8 10^3/uL (4.3-11.0)
[2018-09-24 09:54] LABS: ALBUMIN 4.2 GM/DL (3.2-4.5); BILIRUBIN,TOTAL 0.7 MG/DL (0.1-1.0); CALCIUM 9.5 MG/DL (8.5-10.1); CREATININE SERUM 1.22 MG/DL (0.60-1.30); POTASSIUM 4.4 MMOL/L (3.6-5.0); TOTAL PROTEIN 7.3 GM/DL (6.4-8.2)
== END 2018-10-28 | disposition home or self-care (01) ==
LOC: ONC 08:42
PROVIDERS: ATTEND Internal Medicine Hematology & Oncology
DX: D80.1 Nonfamilial hypogammaglobulinemia (principal); C91.10 Chronic lymphocytic leukemia of B-cell type not having achieved remission; J30.9 Allergic rhinitis, unspecified; Z79.899 Other long term (current) drug therapy
CPT/HCPCS: 36415; 80053; 83615; 85025; 96365; 96366; J1569

== ENCOUNTER 2018-11-25 13:12 | Emergency (ER) | payer MEDICARE ==
[~2018-11-25] VITALS: Ht 157.5 cm; Wt 64.4 kg
[~2018-11-25 13:12] MED LIST changes: -ACETAMINOPHEN 500 MG TAB (TYLENOL) CANCER CTR ONE; -ACETAMINOPHEN 500 MG TAB (TYLENOL) CANCER CTR PO PRN; -ACETAMINOPHEN 500 MG TAB (TYLENOL) PO SCH; -IMMU GLOBULIN,GAMMA (IGG) 100 ML IV SCH; -IMMU GLOBULIN,GAMMA (IGG) 50 ML IV SCH; -IMMUNE GLOBULIN,GAMMA (IGG) 200 ML IV SCH; -NS (IVPB) 250 ML IV SCH; -NS (IVPB) CANCER CENTER 250 ML IV SCH; -diphenhydrAMINE 25 MG TAB (BENADRYL) CANCER CENTER PO ONE; -diphenhydrAMINE 25 MG TAB (BENADRYL) CANCER CENTER PO SCH; -diphenhydrAMINE 25 MG TAB (BENADRYL) PO SCH; -riTUXimab 500 MG, riTUXimab FOR IV INJ CONC 100 MG in NS (IVPB) CANCER CENTER ONLY 140 ML IV SCH
--- NOTE | 2018-11-25 13:33 | ED Upper Extremity ---
General Chief Complaint: Trauma-Non Activation Stated Complaint: RT ARM PAIN FROM FALL Nursing Triage Note: pt tripped walking up the steps into kitchen and landed on right arm. pt denies hitting head. negative for blood thinners. pt c/o right arm pain. Nursing Sepsis Screen: No Definite Risk Source: patient Exam Limitations: no limitations History of Present Illness Date Seen by Provider: Nov 25, 2018 Time Seen by Provider: 13:30 Initial Comments 88-year-old female who presents to the emergency room with complaints of right upper arm pain after landing on the right arm after tripping up a step in her kitchen. She reports that when she tripped she landed on the right arm. She denies right shoulder and right elbow pain but complains of pain to the right humerus. She denies hitting her head, neck pain, loss of consciousness. Onset: just prior to arrival Pain/Injury Location: right arm Method of Injury: fell Modifying Factors: Worse With Movement Allergies and Home Medications Allergies Coded Allergies: Penicillins (Verified Allergy, Unknown, 04/19/17) Sulfa (Sulfonamide Antibiotics) (Verified Allergy, Unknown, 04/19/17) clindamycin (Verified Allergy, Unknown, 04/19/17) Home Medications Ascorbate Calcium 500 Mg Tablet, 500 MG PO DAILY, (Reported) Calcium Carbonate/Vitamin D3 1 Each Tablet, 1 TAB PO DAILY, (Reported) Diphenhydramine HCl 25 Mg Capsule, 25 MG PO HS, (Reported) Ipratropium [place] 15 Ml Naspr, 1 SPRAY NS DAILY PRN for CONGESTION, (Reported) Losartan Potassium 25 Mg Tablet, 25 MG PO DAILY, (Reported) Multivitamins with Iron 1 Each Tablet, 1 TAB PO DAILY, (Reported) Pantoprazole Sodium 40 Mg Tablet.dr, 40 MG PO DAILY Prescribed by: LANCE GAN on 08/30/18 1526 Propranolol HCl 60 Mg Cap.sa.24h, 60 MG PO DAILY Prescribed by: JACOBY SCHWAB on 08/31/18 1259 Patient Home Medication List Home Medication List Reviewed: Yes Review of Systems Constitutional: no symptoms reported, see HPI Musculoskeletal: see HPI, joint pain (and right arm pain) All Other Systems Reviewed Negative Unless Noted: Yes Past Pumeeqw-Epkoua-Sahqod Hx Past Med/Social Hx: Reviewed Nursing Past Med/Soc Hx Patient Social History 2nd Hand Smoke Exposure: No Recent Foreign Travel: No Contact w/Someone Who Travel: No Recent Infectious Disease Expo: No Recent Hopitalizations: No Immunizations Up To Date PED Vaccines UTD: No Date of Pneumonia Vaccine: Jul 19, 2017 Date of Influenza Vaccine: Jul 23, 2018 Seasonal Allergies Seasonal Allergies: Yes Past Medical History Surgeries: Yes (splenectomy) Adenoidectomy, Appendectomy, Gallbladder, Hysterectomy, Tonsillectomy Respiratory: No Currently Using CPAP: No Currently Using BIPAP: No Cardiac: Yes Hypertension Neurological: Yes (history of shingles) Genitourinary: No Gastrointestinal: Yes Diverticulosis, Hemorrhoids, Gall Bladder Disease Musculoskeletal: Yes Arthritis Endocrine: No HEENT: Yes Cataract Hearing Impairment: Hard of Hearing, Bilateral Hearing Aide Cancer: Yes Lymphoma Did You Recieve Any Treatments: Yes What Type of Treatment Did You: Chemotherapy Psychosocial: No Integumentary: No Blood Disorders: No Family Medical History Reviewed Nursing Family Hx Cardiovascular disease 19 MOTHER Completed stroke 19 MOTHER FH: kidney cancer 19 FATHER Hypertension 19 MOTHER Severe allergy No Family History of: Randle's disease Alcoholism Alzheimer's disease Dementia Diabetes mellitus Drug abuse Myocardial infarction Seizure disorder Tuberculosis Physical Exam Vital Signs Vital Signs - First Documented 11/25/18 13:17 Temp 97.9 Pulse 70 Resp 18 B/P (MAP) 156/80 (105) Pulse Ox 98 O2 Delivery Room Air Capillary Refill : Less Than 3 Seconds Height, Weight, BMI Height: 5'2.00" Weight: 142lbs. 2.0oz. [id number]; 27.7 BMI Method:Stated General Appearance: WD/WN, no apparent distress Cardiovascular: normal peripheral pulses, regular rate, rhythm, no edema, no gallop, no JVD, no murmur Respiratory: chest non-tender, lungs clear, normal breath sounds, no respiratory distress, no accessory muscle use Shoulder: normal inspection, non-tender, no evidence of injury, normal ROM, pain (pain between her right elbow and shoulder with movement.) Elbow/Forearm: non-tender, no evidence of injury, normal ROM, Bilateral Wrist: Yes normal inspection, Yes non-tender, Yes no evidence of injury, Yes normal ROM Hand: normal inspection, non-tender, no evidence of injury, normal ROM, Bilateral Neurologic/Tendon: normal sensation, normal motor functions, normal tendon functions, responds to pain, no evidence tendon injury Neurologic/Psychiatric: alert, normal mood/affect, oriented x 3 Skin: normal color, warm/dry neurovascularly intact right upper extremity Progress/Results/Core Measures Results/Orders My Orders Orders - MARY KC Humerus, Right, 2 Views (11/25/18 13:26) Vital Signs/I&O 11/25/18 11/25/18 13:17 13:53 Temp 97.9 98.5 Pulse 70 70 Resp 18 B/P (MAP) 156/80 (105) 156/80 (105) Pulse Ox 98 98 O2 Delivery Room Air Room Air Blood Pressure Mean: 105 Diagnostic Imaging Diagonstic Imaging: Xray Comments [facility], [place] NAME: SALTY MORGAN [facility] REC#: [id number] PT STATUS: REG ER : 1930 PHYSICIAN: MARY KC ADMIT DATE: 11/25/18/ER Draft Date of Exam:11/25/18 HUMERUS, RIGHT, 2 VIEWS INDICATION: Fall with right shoulder pain. COMPARISON: None. DISCUSSION: Two views of the right humerus were obtained. There is a comminuted nondisplaced fracture involving the right humeral head and neck with some intra-articular extension. Overall alignment is near anatomic. No dislocation. Soft tissues are unremarkable. IMPRESSION: 1. Comminuted nondisplaced intra-articular proximal right humeral fracture. Dictated on workstation # [id number] Dict: 11/25/18 1341 Trans: 11/25/18 1344 [id number] Interpreted by: CHRISTOPHE NEWBY MD Electronically signed by: Reviewed: Reviewed by Tx Departure Impression Primary Impression: Fracture of proximal humerus Disposition: HOME, SELF-CARE Condition: Stable/Unchanged Departure-Patient Inst. Decision time for Depature: 14:15 Referrals: JACOBY SCHWAB MD (PCP/Family) Primary Care Physician NEYDA WATSON DO Patient Instructions: Upper Arm Fracture Add. Discharge Instructions: You may use Tylenol as directed by the bottle for pain relief. For pain unrelieved by Tylenol you may use the hydrocodone that was prescribed half a tab to 1 full tab as needed for pain. Wear the arm sling at all times. Call Dr. Watson's office first thing tomorrow morning to schedule an appointment time. Return back to the emergency room for worsening symptoms or concerns as needed. All discharge instructions reviewed with patient and/or family. Voiced understanding. Scripts Hydrocodone Bit/Acetaminophen (Hydrocodone/Acetaminophen 5/325mg Tablet) 1 Tab Tab 0.5-1 EACH PO Q6H PRN for PAIN-MODERATE MDD 10, #14 TAB Prov: MARY KC 11/25/18 MARY KC Nov 25, 2018 13:33
--- NOTE | 2018-11-25 13:45 | Diagnostic Imaging Report ---
INDICATION: Fall with right shoulder pain. COMPARISON: None. DISCUSSION: Two views of the right humerus were obtained. There is a comminuted nondisplaced fracture involving the right humeral head and neck with some intra-articular extension. Overall alignment is near anatomic. No dislocation. Soft tissues are unremarkable. IMPRESSION: 1. Comminuted nondisplaced intra-articular proximal right humeral fracture. Dictated by: Dictated on workstation # [id number]
[2018-11-25] MEDS ORDERED: ACHD5005 PO (14:18)
[2018-11-25 14:39] VITALS: BP 156/80
== END 2018-11-25 14:41 | disposition home or self-care (01) ==
LOC: EDUNIT# 13:12 → ER 13:13
DX: S42.294A Other nondisplaced fracture of upper end of right humerus, initial encounter for closed fracture (principal); I10 Essential (primary) hypertension; Z85.72 Personal history of non-Hodgkin lymphomas; Z92.21 Personal history of antineoplastic chemotherapy; Z86.19 Personal history of other infectious and parasitic diseases; Z87.19 Personal history of other diseases of the digestive system; Z88.0 Allergy status to penicillin; Z80.51 Family history of malignant neoplasm of kidney; Z88.2 Allergy status to sulfonamides; Z82.49 Family history of ischemic heart disease and other diseases of the circulatory system; Z88.1 Allergy status to other antibiotic agents; Z90.49 Acquired absence of other specified parts of digestive tract; Z90.89 Acquired absence of other organs; Z98.890 Other specified postprocedural states; Z90.710 Acquired absence of both cervix and uterus; W01.0XXA Fall on same level from slipping, tripping and stumbling without subsequent striking against object, initial encounter; Y92.000 Kitchen of unspecified non-institutional (private) residence as the place of occurrence of the external cause
CPT/HCPCS: 73060

== ENCOUNTER 2018-12-31 10:09 | Outpatient (RCR) | payer MEDICARE ==
[2018-10-29 09:37] LABS: BASOPHILS # (AUTO) 0.1 10^3/uL (0.0-0.1); BASOPHILS % (AUTO) 1 % (0-10); EOSINOPHILS # (AUTO) 0.2 10^3/uL (0.0-0.3); EOSINOPHILS % (AUTO) 3 % (0-10); HEMATOCRIT 32 % (35-52); HEMOGLOBIN 10.3 G/DL (11.5-16.0); LYMPHOCYTES # (AUTO) 2.5 X 10^3 (1.0-4.0); LYMPHOCYTES % (AUTO) 33 % (12-44); MEAN CORPUSCULAR HEMOGLOBIN 28 PG (25-34); MEAN CORPUSCULAR HGB CONC 32 G/DL (32-36); MEAN CORPUSCULAR VOLUME 87 FL (80-99); MEAN PLATELET VOLUME 12.2 FL (7.4-10.4); MONOCYTES # (AUTO) 1.1 X 10^3 (0.0-1.0); MONOCYTES % (AUTO) 14 % (0-12); NEUTROPHILS # (AUTO) 3.9 X 10^3 (1.8-7.8); NEUTROPHILS % (AUTO) 50 % (42-75); PLATELET COUNT 347 10^3/uL (130-400); RED CELL DISTRIBUTION WIDTH 16.1 % (10.0-14.5); WHITE BLOOD COUNT 7.8 10^3/uL (4.3-11.0)
[2018-10-29 09:55] LABS: BILIRUBIN,TOTAL 0.5 MG/DL (0.1-1.0); CALCIUM 9.4 MG/DL (8.5-10.1); CREATININE SERUM 1.11 MG/DL (0.60-1.30); POTASSIUM 4.1 MMOL/L (3.6-5.0); TOTAL PROTEIN 6.3 GM/DL (6.4-8.2)
[~2018-12-31 10:09] MED LIST changes: +ACETAMINOPHEN 500 MG TAB (TYLENOL) CANCER CTR PO PRN; +ACHD5005 PO; +IMMU GLOBULIN,GAMMA (IGG) 50 ML IV SCH; +IMMUNE GLOBULIN,GAMMA (IGG) 200 ML IV SCH; +NS (IVPB) CANCER CENTER 250 ML IV SCH; +diphenhydrAMINE 25 MG TAB (BENADRYL) CANCER CENTER PO SCH; +riTUXimab 500 MG, riTUXimab FOR IV INJ CONC 100 MG in NS (IVPB) CANCER CENTER ONLY 140 ML IV SCH
[2018-12-31 10:34] LABS: BASOPHILS # (AUTO) 0.1 10^3/uL (0.0-0.1); BASOPHILS % (AUTO) 1 % (0-10); EOSINOPHILS # (AUTO) 0.2 10^3/uL (0.0-0.3); EOSINOPHILS % (AUTO) 3 % (0-10); HEMATOCRIT 35 % (35-52); HEMOGLOBIN 11.5 G/DL (11.5-16.0); LYMPHOCYTES # (AUTO) 3.1 X 10^3 (1.0-4.0); LYMPHOCYTES % (AUTO) 36 % (12-44); MEAN CORPUSCULAR HEMOGLOBIN 28 PG (25-34); MEAN CORPUSCULAR HGB CONC 33 G/DL (32-36); MEAN CORPUSCULAR VOLUME 85 FL (80-99); MEAN PLATELET VOLUME 12.3 FL (7.4-10.4); MONOCYTES % (AUTO) 12 % (0-12); NEUTROPHILS # (AUTO) 4.1 X 10^3 (1.8-7.8); NEUTROPHILS % (AUTO) 48 % (42-75); PLATELET COUNT 281 10^3/uL (130-400); WHITE BLOOD COUNT 8.6 10^3/uL (4.3-11.0)
[2018-12-31 10:56] LABS: ALBUMIN 4.2 GM/DL (3.2-4.5); BILIRUBIN,TOTAL 0.7 MG/DL (0.1-1.0); CREATININE SERUM 0.97 MG/DL (0.60-1.30); POTASSIUM 4.1 MMOL/L (3.6-5.0); TOTAL PROTEIN 6.4 GM/DL (6.4-8.2)
== END 2019-01-27 | disposition home or self-care (01) ==
LOC: ONC 10:09
PROVIDERS: ATTEND Internal Medicine Hematology & Oncology
DX: D80.1 Nonfamilial hypogammaglobulinemia (principal); C91.10 Chronic lymphocytic leukemia of B-cell type not having achieved remission; J30.9 Allergic rhinitis, unspecified; Z79.899 Other long term (current) drug therapy
CPT/HCPCS: 36415; 80053; 82728; 82784; 83540; 85025; 96365; 96366; 99213; J1569

== ENCOUNTER 2019-04-22 08:22 | Outpatient (RCR) | payer MEDICARE ==
[2019-02-18 09:41] LABS: BASOPHILS # (AUTO) 0.1 10^3/uL (0.0-0.1); BASOPHILS % (AUTO) 1 % (0-10); EOSINOPHILS # (AUTO) 0.3 10^3/uL (0.0-0.3); EOSINOPHILS % (AUTO) 4 % (0-10); HEMATOCRIT 35 % (35-52); HEMOGLOBIN 11.5 G/DL (11.5-16.0); LYMPHOCYTES # (AUTO) 2.3 X 10^3 (1.0-4.0); LYMPHOCYTES % (AUTO) 31 % (12-44); MEAN CORPUSCULAR HEMOGLOBIN 29 PG (25-34); MEAN CORPUSCULAR HGB CONC 33 G/DL (32-36); MEAN CORPUSCULAR VOLUME 88 FL (80-99); MEAN PLATELET VOLUME 12.4 FL (7.4-10.4); MONOCYTES # (AUTO) 0.8 X 10^3 (0.0-1.0); MONOCYTES % (AUTO) 11 % (0-12); NEUTROPHILS # (AUTO) 3.8 X 10^3 (1.8-7.8); NEUTROPHILS % (AUTO) 53 % (42-75); PLATELET COUNT 271 10^3/uL (130-400); RED CELL DISTRIBUTION WIDTH 19.1 % (10.0-14.5); WHITE BLOOD COUNT 7.2 10^3/uL (4.3-11.0)
[2019-02-18 10:00] LABS: ALBUMIN 3.9 GM/DL (3.2-4.5); BILIRUBIN,TOTAL 0.6 MG/DL (0.1-1.0); CALCIUM 9.2 MG/DL (8.5-10.1); CREATININE SERUM 1.16 MG/DL (0.60-1.30); POTASSIUM 4.1 MMOL/L (3.6-5.0); TOTAL PROTEIN 6.3 GM/DL (6.4-8.2)
[2019-04-15 09:44] LABS: BASOPHILS % (AUTO) 0 % (0-10); EOSINOPHILS # (AUTO) 0.2 10^3/uL (0.0-0.3); EOSINOPHILS % (AUTO) 2 % (0-10); HEMATOCRIT 37 % (35-52); HEMOGLOBIN 12.3 G/DL (11.5-16.0); LYMPHOCYTES # (AUTO) 2.5 X 10^3 (1.0-4.0); LYMPHOCYTES % (AUTO) 28 % (12-44); MEAN CORPUSCULAR HEMOGLOBIN 30 PG (25-34); MEAN CORPUSCULAR HGB CONC 33 G/DL (32-36); MEAN CORPUSCULAR VOLUME 90 FL (80-99); MEAN PLATELET VOLUME 12.6 FL (7.4-10.4); MONOCYTES # (AUTO) 0.9 X 10^3 (0.0-1.0); MONOCYTES % (AUTO) 10 % (0-12); NEUTROPHILS # (AUTO) 5.3 X 10^3 (1.8-7.8); NEUTROPHILS % (AUTO) 60 % (42-75); PLATELET COUNT 239 10^3/uL (130-400); RED CELL DISTRIBUTION WIDTH 16.9 % (10.0-14.5); WHITE BLOOD COUNT 8.9 10^3/uL (4.3-11.0)
[2019-04-15 10:05] LABS: ALBUMIN 4.3 GM/DL (3.2-4.5); BILIRUBIN,TOTAL 0.6 MG/DL (0.1-1.0); CALCIUM 9.7 MG/DL (8.5-10.1); CREATININE SERUM 1.11 MG/DL (0.60-1.30); POTASSIUM 4.2 MMOL/L (3.6-5.0); TOTAL PROTEIN 6.9 GM/DL (6.4-8.2)
[~2019-04-22 08:22] MED LIST changes: +IMMU GLOBULIN,GAMMA (IGG) 100 ML IV SCH; +IVIG 20 GM (PRIVIGEN) CANCER C 200 ML IV SCH; +IVIG 5 GM (PRIVIGEN) CANCER CT 50 ML IV SCH
== END 2019-05-19 | disposition home or self-care (01) ==
LOC: ONC 08:22
PROVIDERS: ATTEND Internal Medicine Hematology & Oncology
DX: D80.1 Nonfamilial hypogammaglobulinemia (principal); C91.10 Chronic lymphocytic leukemia of B-cell type not having achieved remission; J30.9 Allergic rhinitis, unspecified; Z79.899 Other long term (current) drug therapy
CPT/HCPCS: 36415; 80053; 82784; 83615; 85025; 96365; 96366; J1569

== ENCOUNTER 2019-08-12 08:41 | Outpatient (RCR) | payer MEDICARE ==
[2019-06-10 09:42] LABS: BASOPHILS # (AUTO) 0.1 10^3/uL (0.0-0.1); BASOPHILS % (AUTO) 1 % (0-10); EOSINOPHILS # (AUTO) 0.2 10^3/uL (0.0-0.3); EOSINOPHILS % (AUTO) 3 % (0-10); HEMATOCRIT 37 % (35-52); HEMOGLOBIN 12.1 G/DL (11.5-16.0); LYMPHOCYTES # (AUTO) 2.2 X 10^3 (1.0-4.0); LYMPHOCYTES % (AUTO) 33 % (12-44); MEAN CORPUSCULAR HEMOGLOBIN 30 PG (25-34); MEAN CORPUSCULAR HGB CONC 33 G/DL (32-36); MEAN CORPUSCULAR VOLUME 92 FL (80-99); MEAN PLATELET VOLUME 12.1 FL (7.4-10.4); MONOCYTES # (AUTO) 0.7 X 10^3 (0.0-1.0); MONOCYTES % (AUTO) 11 % (0-12); NEUTROPHILS # (AUTO) 3.5 X 10^3 (1.8-7.8); NEUTROPHILS % (AUTO) 53 % (42-75); PLATELET COUNT 237 10^3/uL (130-400); RED CELL DISTRIBUTION WIDTH 15.5 % (10.0-14.5); WHITE BLOOD COUNT 6.6 10^3/uL (4.3-11.0)
[2019-06-10 10:02] LABS: ALBUMIN 4.1 GM/DL (3.2-4.5); BILIRUBIN,TOTAL 0.7 MG/DL (0.1-1.0); CALCIUM 9.3 MG/DL (8.5-10.1); CREATININE SERUM 1.14 MG/DL (0.60-1.30); POTASSIUM 4.1 MMOL/L (3.6-5.0); TOTAL PROTEIN 6.5 GM/DL (6.4-8.2)
[2019-08-05 09:49] LABS: BASOPHILS # (AUTO) 0.1 10^3/uL (0.0-0.1); BASOPHILS % (AUTO) 1 % (0-10); EOSINOPHILS # (AUTO) 0.2 10^3/uL (0.0-0.3); EOSINOPHILS % (AUTO) 2 % (0-10); HEMATOCRIT 37 % (35-52); HEMOGLOBIN 12.1 G/DL (11.5-16.0); LYMPHOCYTES # (AUTO) 2.2 X 10^3 (1.0-4.0); LYMPHOCYTES % (AUTO) 27 % (12-44); MEAN CORPUSCULAR HEMOGLOBIN 31 PG (25-34); MEAN CORPUSCULAR HGB CONC 33 G/DL (32-36); MEAN CORPUSCULAR VOLUME 93 FL (80-99); MEAN PLATELET VOLUME 12.1 FL (7.4-10.4); MONOCYTES # (AUTO) 0.9 X 10^3 (0.0-1.0); MONOCYTES % (AUTO) 11 % (0-12); NEUTROPHILS # (AUTO) 4.9 X 10^3 (1.8-7.8); NEUTROPHILS % (AUTO) 59 % (42-75); PLATELET COUNT 256 10^3/uL (130-400); RED CELL DISTRIBUTION WIDTH 15.4 % (10.0-14.5); WHITE BLOOD COUNT 8.3 10^3/uL (4.3-11.0)
[2019-08-05 10:14] LABS: ALBUMIN 4.2 GM/DL (3.2-4.5); BILIRUBIN,TOTAL 0.9 MG/DL (0.1-1.0); CALCIUM 9.4 MG/DL (8.5-10.1); CREATININE SERUM 1.19 MG/DL (0.60-1.30); POTASSIUM 4.1 MMOL/L (3.6-5.0); TOTAL PROTEIN 6.6 GM/DL (6.4-8.2)
[~2019-08-12 08:41] MED LIST changes: -IMMU GLOBULIN,GAMMA (IGG) 100 ML IV SCH; -IMMU GLOBULIN,GAMMA (IGG) 50 ML IV SCH; -IMMUNE GLOBULIN,GAMMA (IGG) 200 ML IV SCH
== END 2019-09-08 | disposition home or self-care (01) ==
LOC: ONC 08:41
PROVIDERS: ATTEND Internal Medicine Hematology & Oncology
DX: D80.1 Nonfamilial hypogammaglobulinemia (principal); C91.10 Chronic lymphocytic leukemia of B-cell type not having achieved remission; J30.9 Allergic rhinitis, unspecified; Z79.899 Other long term (current) drug therapy
CPT/HCPCS: 36415; 80053; 82784; 83615; 85025; 96365; 96366

== ENCOUNTER 2019-12-02 08:46 | Outpatient (RCR) | payer MEDICARE ==
[2019-09-30 10:08] LABS: BASOPHILS # (AUTO) 0.1 10^3/uL (0.0-0.1); BASOPHILS % (AUTO) 1 % (0-10); EOSINOPHILS # (AUTO) 0.3 10^3/uL (0.0-0.3); EOSINOPHILS % (AUTO) 3 % (0-10); HEMATOCRIT 36 % (35-52); HEMOGLOBIN 11.7 G/DL (11.5-16.0); LYMPHOCYTES # (AUTO) 2.5 X 10^3 (1.0-4.0); LYMPHOCYTES % (AUTO) 26 % (12-44); MEAN CORPUSCULAR HEMOGLOBIN 31 PG (25-34); MEAN CORPUSCULAR HGB CONC 33 G/DL (32-36); MEAN CORPUSCULAR VOLUME 94 FL (80-99); MEAN PLATELET VOLUME 11.6 FL (7.4-10.4); MONOCYTES % (AUTO) 11 % (0-12); NEUTROPHILS # (AUTO) 5.6 X 10^3 (1.8-7.8); NEUTROPHILS % (AUTO) 59 % (42-75); PLATELET COUNT 323 10^3/uL (130-400); RED CELL DISTRIBUTION WIDTH 14.9 % (10.0-14.5); WHITE BLOOD COUNT 9.4 10^3/uL (4.3-11.0)
[2019-09-30 10:32] LABS: BILIRUBIN,TOTAL 0.4 MG/DL (0.1-1.0); CALCIUM 9.2 MG/DL (8.5-10.1); CREATININE SERUM 1.07 MG/DL (0.60-1.30); POTASSIUM 4.4 MMOL/L (3.6-5.0); TOTAL PROTEIN 6.4 GM/DL (6.4-8.2)
[2019-11-25 09:44] LABS: BASOPHILS # (AUTO) 0.1 10^3/uL (0.0-0.1); BASOPHILS % (AUTO) 1 % (0-10); EOSINOPHILS # (AUTO) 0.2 10^3/uL (0.0-0.3); EOSINOPHILS % (AUTO) 2 % (0-10); HEMATOCRIT 38 % (35-52); HEMOGLOBIN 12.6 G/DL (11.5-16.0); LYMPHOCYTES # (AUTO) 2.3 X 10^3 (1.0-4.0); LYMPHOCYTES % (AUTO) 27 % (12-44); MEAN CORPUSCULAR HEMOGLOBIN 31 PG (25-34); MEAN CORPUSCULAR HGB CONC 33 G/DL (32-36); MEAN CORPUSCULAR VOLUME 93 FL (80-99); MEAN PLATELET VOLUME 12.3 FL (7.4-10.4); MONOCYTES % (AUTO) 12 % (0-12); NEUTROPHILS % (AUTO) 58 % (42-75); PLATELET COUNT 252 10^3/uL (130-400); RED CELL DISTRIBUTION WIDTH 15.7 % (10.0-14.5); WHITE BLOOD COUNT 8.5 10^3/uL (4.3-11.0)
[2019-11-25 10:00] LABS: ALBUMIN 4.4 GM/DL (3.2-4.5); CALCIUM 9.7 MG/DL (8.5-10.1); CREATININE SERUM 1.03 MG/DL (0.60-1.30); POTASSIUM 4.1 MMOL/L (3.6-5.0)
== END 2019-12-29 | disposition home or self-care (01) ==
LOC: ONC 08:46
PROVIDERS: ATTEND Internal Medicine Hematology & Oncology
DX: D80.1 Nonfamilial hypogammaglobulinemia (principal); C91.10 Chronic lymphocytic leukemia of B-cell type not having achieved remission; J30.9 Allergic rhinitis, unspecified; D50.0 Iron deficiency anemia secondary to blood loss (chronic); Z79.899 Other long term (current) drug therapy
CPT/HCPCS: 80053; 82728; 82784; 83540; 85025; 96365; 96366

== ENCOUNTER 2020-03-23 08:51 | Outpatient (RCR) | payer MEDICARE ==
[2020-01-20 09:55] LABS: BASOPHILS # (AUTO) 0.1 10^3/uL (0.0-0.1); BASOPHILS % (AUTO) 1 % (0-10); EOSINOPHILS # (AUTO) 0.2 10^3/uL (0.0-0.3); EOSINOPHILS % (AUTO) 3 % (0-10); HEMATOCRIT 38 % (35-52); HEMOGLOBIN 12.3 G/DL (11.5-16.0); LYMPHOCYTES # (AUTO) 2.7 X 10^3 (1.0-4.0); LYMPHOCYTES % (AUTO) 37 % (12-44); MEAN CORPUSCULAR HEMOGLOBIN 30 PG (25-34); MEAN CORPUSCULAR HGB CONC 32 G/DL (32-36); MEAN CORPUSCULAR VOLUME 93 FL (80-99); MEAN PLATELET VOLUME 12.3 FL (7.4-10.4); MONOCYTES % (AUTO) 13 % (0-12); NEUTROPHILS # (AUTO) 3.3 X 10^3 (1.8-7.8); NEUTROPHILS % (AUTO) 46 % (42-75); PLATELET COUNT 240 10^3/uL (130-400); RED CELL DISTRIBUTION WIDTH 15.5 % (10.0-14.5); WHITE BLOOD COUNT 7.2 10^3/uL (4.3-11.0)
[2020-01-20 10:21] LABS: ALBUMIN 4.1 GM/DL (3.2-4.5); BILIRUBIN,TOTAL 0.6 MG/DL (0.1-1.0); CALCIUM 9.5 MG/DL (8.5-10.1); CREATININE SERUM 1.08 MG/DL (0.60-1.30); POTASSIUM 4.5 MMOL/L (3.6-5.0); TOTAL PROTEIN 6.5 GM/DL (6.4-8.2)
[2020-03-16 09:39] LABS: BASOPHILS # (AUTO) 0.1 10^3/uL (0.0-0.1); BASOPHILS % (AUTO) 1 % (0-10); EOSINOPHILS # (AUTO) 0.2 10^3/uL (0.0-0.3); EOSINOPHILS % (AUTO) 2 % (0-10); HEMATOCRIT 37 % (35-52); HEMOGLOBIN 12.2 G/DL (11.5-16.0); LYMPHOCYTES # (AUTO) 2.3 X 10^3 (1.0-4.0); LYMPHOCYTES % (AUTO) 30 % (12-44); MEAN CORPUSCULAR HEMOGLOBIN 31 PG (25-34); MEAN CORPUSCULAR HGB CONC 33 G/DL (32-36); MEAN CORPUSCULAR VOLUME 93 FL (80-99); MONOCYTES # (AUTO) 0.8 X 10^3 (0.0-1.0); MONOCYTES % (AUTO) 10 % (0-12); NEUTROPHILS # (AUTO) 4.4 X 10^3 (1.8-7.8); NEUTROPHILS % (AUTO) 57 % (42-75); PLATELET COUNT 231 10^3/uL (130-400); RED CELL DISTRIBUTION WIDTH 15.5 % (10.0-14.5); WHITE BLOOD COUNT 7.7 10^3/uL (4.3-11.0)
[2020-03-16 10:17] LABS: BILIRUBIN,TOTAL 0.7 MG/DL (0.1-1.0); CALCIUM 9.2 MG/DL (8.5-10.1); POTASSIUM 4.1 MMOL/L (3.6-5.0); TOTAL PROTEIN 6.5 GM/DL (6.4-8.2)
== END 2020-04-19 | disposition home or self-care (01) ==
LOC: ONC 08:51
PROVIDERS: ATTEND Internal Medicine Hematology & Oncology
DX: D80.1 Nonfamilial hypogammaglobulinemia (principal); C91.10 Chronic lymphocytic leukemia of B-cell type not having achieved remission; J30.9 Allergic rhinitis, unspecified; D50.0 Iron deficiency anemia secondary to blood loss (chronic); Z79.899 Other long term (current) drug therapy
CPT/HCPCS: 80053; 85025; 96365; 96366

== ENCOUNTER 2020-07-27 09:21 | Outpatient (RCR) | payer MEDICARE ==
[2020-05-11 09:45] LABS: BASOPHILS # (AUTO) 0.1 10^3/uL (0.0-0.1); BASOPHILS % (AUTO) 1 % (0-10); EOSINOPHILS # (AUTO) 0.2 10^3/uL (0.0-0.3); EOSINOPHILS % (AUTO) 2 % (0-10); HEMATOCRIT 37 % (35-52); HEMOGLOBIN 12.1 G/DL (11.5-16.0); LYMPHOCYTES # (AUTO) 2.8 X 10^3 (1.0-4.0); LYMPHOCYTES % (AUTO) 33 % (12-44); MEAN CORPUSCULAR HEMOGLOBIN 31 PG (25-34); MEAN CORPUSCULAR HGB CONC 33 G/DL (32-36); MEAN CORPUSCULAR VOLUME 93 FL (80-99); MEAN PLATELET VOLUME 12.1 FL (7.4-10.4); MONOCYTES # (AUTO) 0.9 X 10^3 (0.0-1.0); MONOCYTES % (AUTO) 11 % (0-12); NEUTROPHILS # (AUTO) 4.6 X 10^3 (1.8-7.8); NEUTROPHILS % (AUTO) 53 % (42-75); PLATELET COUNT 254 10^3/uL (130-400); WHITE BLOOD COUNT 8.6 10^3/uL (4.3-11.0)
[2020-05-11 10:08] LABS: ALBUMIN 4.1 GM/DL (3.2-4.5); BILIRUBIN,TOTAL 0.6 MG/DL (0.1-1.0); CALCIUM 9.1 MG/DL (8.5-10.1); CREATININE SERUM 1.02 MG/DL (0.60-1.30); POTASSIUM 4.5 MMOL/L (3.6-5.0); TOTAL PROTEIN 6.7 GM/DL (6.4-8.2)
[2020-06-01 09:44] LABS: BASOPHILS # (AUTO) 0.1 10^3/uL (0.0-0.1); BASOPHILS % (AUTO) 1 % (0-10); EOSINOPHILS # (AUTO) 0.2 10^3/uL (0.0-0.3); EOSINOPHILS % (AUTO) 3 % (0-10); HEMATOCRIT 38 % (35-52); HEMOGLOBIN 12.3 G/DL (11.5-16.0); LYMPHOCYTES # (AUTO) 3.1 X 10^3 (1.0-4.0); LYMPHOCYTES % (AUTO) 35 % (12-44); MEAN CORPUSCULAR HEMOGLOBIN 31 PG (25-34); MEAN CORPUSCULAR HGB CONC 33 G/DL (32-36); MEAN CORPUSCULAR VOLUME 94 FL (80-99); MEAN PLATELET VOLUME 12.4 FL (7.4-10.4); MONOCYTES # (AUTO) 1.1 X 10^3 (0.0-1.0); MONOCYTES % (AUTO) 12 % (0-12); NEUTROPHILS # (AUTO) 4.4 X 10^3 (1.8-7.8); NEUTROPHILS % (AUTO) 50 % (42-75); PLATELET COUNT 229 10^3/uL (130-400); WHITE BLOOD COUNT 8.9 10^3/uL (4.3-11.0)
[2020-07-23 10:27] LABS: BASOPHILS # (AUTO) 0.1 10^3/uL (0.0-0.1); BASOPHILS % (AUTO) 1 % (0-10); EOSINOPHILS # (AUTO) 0.3 10^3/uL (0.0-0.3); EOSINOPHILS % (AUTO) 3 % (0-10); HEMATOCRIT 38 % (35-52); HEMOGLOBIN 12.3 g/dL (11.5-16.0); LYMPHOCYTES % (AUTO) 34 % (12-44); MEAN CORPUSCULAR HEMOGLOBIN 31 pg (25-34); MEAN CORPUSCULAR HGB CONC 33 g/dL (32-36); MEAN CORPUSCULAR VOLUME 94 fL (80-99); MEAN PLATELET VOLUME 12.1 fL (9.0-12.2); MONOCYTES % (AUTO) 11 % (0-12); NEUTROPHILS # (AUTO) 4.5 10^3/uL (1.8-7.8); NEUTROPHILS % (AUTO) 51 % (42-75); PLATELET COUNT 268 10^3/uL (130-400); WHITE BLOOD COUNT 8.9 10^3/uL (4.3-11.0)
[2020-07-23 10:45] LABS: ALBUMIN 4.2 GM/DL (3.2-4.5); BILIRUBIN,TOTAL 0.9 MG/DL (0.1-1.0); CALCIUM 9.2 MG/DL (8.5-10.1); CREATININE SERUM 1.05 MG/DL (0.60-1.30); POTASSIUM 4.2 MMOL/L (3.6-5.0); TOTAL PROTEIN 6.9 GM/DL (6.4-8.2)
[~2020-07-27 09:21] MED LIST changes: +CENTER ONLY IV SCH; +NS IV SCH; +RITUXIMAB ABBS IV SCH
== END 2020-08-09 | disposition home or self-care (01) ==
LOC: ONC 09:21
PROVIDERS: ATTEND Internal Medicine Hematology & Oncology
DX: C91.10 Chronic lymphocytic leukemia of B-cell type not having achieved remission (principal); D80.1 Nonfamilial hypogammaglobulinemia; J30.9 Allergic rhinitis, unspecified; D50.0 Iron deficiency anemia secondary to blood loss (chronic); Z79.899 Other long term (current) drug therapy
CPT/HCPCS: 36415; 80053; 85025; 96365; 96366

== ENCOUNTER 2020-09-14 09:41 | Outpatient (RCR) | payer MEDICARE ==
[~2020-09-14 09:41] MED LIST changes: -ACETAMINOPHEN 500 MG TAB (TYLENOL) CANCER CTR PO PRN; -CENTER ONLY IV SCH; -IVIG 20 GM (PRIVIGEN) CANCER C 200 ML IV SCH; -IVIG 5 GM (PRIVIGEN) CANCER CT 50 ML IV SCH; -NS (IVPB) CANCER CENTER 250 ML IV SCH; -NS IV SCH; -RITUXIMAB ABBS IV SCH; -diphenhydrAMINE 25 MG TAB (BENADRYL) CANCER CENTER PO SCH; -riTUXimab 500 MG, riTUXimab FOR IV INJ CONC 100 MG in NS (IVPB) CANCER CENTER ONLY 140 ML IV SCH
[2020-09-14 10:00] LABS: BASOPHILS % (AUTO) 0 % (0-10); EOSINOPHILS # (AUTO) 0.1 10^3/uL (0.0-0.3); EOSINOPHILS % (AUTO) 1 % (0-10); HEMATOCRIT 38 % (35-52); HEMOGLOBIN 12.3 g/dL (11.5-16.0); LYMPHOCYTES # (AUTO) 2.6 10^3/uL (1.0-4.0); LYMPHOCYTES % (AUTO) 32 % (12-44); MEAN CORPUSCULAR HEMOGLOBIN 30 pg (25-34); MEAN CORPUSCULAR HGB CONC 32 g/dL (32-36); MEAN CORPUSCULAR VOLUME 94 fL (80-99); MEAN PLATELET VOLUME 12.3 fL (9.0-12.2); MONOCYTES # (AUTO) 0.9 10^3/uL (0.0-1.0); MONOCYTES % (AUTO) 11 % (0-12); NEUTROPHILS # (AUTO) 4.4 10^3/uL (1.8-7.8); NEUTROPHILS % (AUTO) 54 % (42-75); PLATELET COUNT 228 10^3/uL (130-400); WHITE BLOOD COUNT 8.1 10^3/uL (4.3-11.0)
[2020-09-14 10:22] LABS: ALBUMIN 4.1 GM/DL (3.2-4.5); BILIRUBIN,TOTAL 0.7 MG/DL (0.1-1.0); CREATININE SERUM 1.01 MG/DL (0.60-1.30); POTASSIUM 4.3 MMOL/L (3.6-5.0); TOTAL PROTEIN 6.8 GM/DL (6.4-8.2)
[2020-09-21] MEDS ORDERED: diphenhydrAMINE 25 MG TAB (BENADRYL) CANCER CENTER PO SCH (08:13)
[2020-09-21] MEDS ORDERED: IVIG 20 GM (PRIVIGEN) CANCER C 200 ML IV SCH (08:13)
[2020-09-21] MEDS ORDERED: NS (IVPB) CANCER CENTER 250 ML IV SCH (08:13)
[2020-09-21] MEDS ORDERED: IVIG 5 GM (PRIVIGEN) CANCER CT 50 ML IV SCH (08:13)
[2020-09-21] MEDS ORDERED: ACETAMINOPHEN 500 MG TAB (TYLENOL) CANCER CTR PO PRN (08:13)
== END 2020-09-21 09:15 | disposition home or self-care (01) ==
LOC: ONC 09:41
PROVIDERS: ATTEND Internal Medicine Hematology & Oncology
DX: C91.10 Chronic lymphocytic leukemia of B-cell type not having achieved remission (principal); D59.12 Cold autoimmune hemolytic anemia
CPT/HCPCS: 80053; 82784; 85025

== ENCOUNTER 2020-11-16 08:51 | Outpatient (RCR) | payer MEDICARE ==
[2020-11-11 09:45] LABS: BASOPHILS # (AUTO) 0.1 10^3/uL (0.0-0.1); BASOPHILS % (AUTO) 1 % (0-10); EOSINOPHILS # (AUTO) 0.2 10^3/uL (0.0-0.3); EOSINOPHILS % (AUTO) 2 % (0-10); HEMATOCRIT 37 % (35-52); HEMOGLOBIN 11.9 g/dL (11.5-16.0); LYMPHOCYTES # (AUTO) 3.6 10^3/uL (1.0-4.0); LYMPHOCYTES % (AUTO) 39 % (12-44); MEAN CORPUSCULAR HEMOGLOBIN 31 pg (25-34); MEAN CORPUSCULAR HGB CONC 32 g/dL (32-36); MEAN CORPUSCULAR VOLUME 94 fL (80-99); MEAN PLATELET VOLUME 12.1 fL (9.0-12.2); MONOCYTES % (AUTO) 11 % (0-12); NEUTROPHILS # (AUTO) 4.3 10^3/uL (1.8-7.8); NEUTROPHILS % (AUTO) 47 % (42-75); PLATELET COUNT 270 10^3/uL (130-400); WHITE BLOOD COUNT 9.2 10^3/uL (4.3-11.0)
[2020-11-11 10:06] LABS: ALBUMIN 4.1 GM/DL (3.2-4.5); BILIRUBIN,TOTAL 1.1 MG/DL (0.1-1.0); CALCIUM 9.4 MG/DL (8.5-10.1); CREATININE SERUM 1.07 MG/DL (0.60-1.30); POTASSIUM 4.1 MMOL/L (3.6-5.0); TOTAL PROTEIN 6.6 GM/DL (6.4-8.2)
[~2020-11-16 08:51] MED LIST changes: +ACETAMINOPHEN 500 MG TAB (TYLENOL) CANCER CTR ONE; +ACETAMINOPHEN 500 MG TAB (TYLENOL) CANCER CTR PO PRN; +IVIG 20 GM (PRIVIGEN) CANCER C 200 ML IV SCH; +IVIG 5 GM (PRIVIGEN) CANCER CT 50 ML IV SCH; +NS (IVPB) CANCER CENTER 250 ML IV SCH; +diphenhydrAMINE 25 MG TAB (BENADRYL) CANCER CENTER PO ONE; +diphenhydrAMINE 25 MG TAB (BENADRYL) CANCER CENTER PO SCH
== END 2020-12-20 | disposition home or self-care (01) ==
LOC: ONC 08:51
PROVIDERS: ATTEND Internal Medicine Hematology & Oncology
DX: C91.10 Chronic lymphocytic leukemia of B-cell type not having achieved remission (principal); D59.12 Cold autoimmune hemolytic anemia; D80.1 Nonfamilial hypogammaglobulinemia; H91.10 Presbycusis, unspecified ear; Z92.21 Personal history of antineoplastic chemotherapy
CPT/HCPCS: 96365; 96366; G0463; 80053; 82784; 85025

== ENCOUNTER 2021-03-08 10:30 | Outpatient (RCR) | payer MEDICARE ==
[2021-01-07 10:52] LABS: BASOPHILS # (AUTO) 0.1 10^3/uL (0.0-0.1); BASOPHILS % (AUTO) 1 % (0-10); EOSINOPHILS # (AUTO) 0.2 10^3/uL (0.0-0.3); EOSINOPHILS % (AUTO) 2 % (0-10); HEMATOCRIT 38 % (35-52); HEMOGLOBIN 12.3 g/dL (11.5-16.0); LYMPHOCYTES # (AUTO) 2.7 10^3/uL (1.0-4.0); LYMPHOCYTES % (AUTO) 30 % (12-44); MEAN CORPUSCULAR HEMOGLOBIN 30 pg (25-34); MEAN CORPUSCULAR HGB CONC 32 g/dL (32-36); MEAN CORPUSCULAR VOLUME 95 fL (80-99); MEAN PLATELET VOLUME 11.9 fL (9.0-12.2); MONOCYTES % (AUTO) 11 % (0-12); NEUTROPHILS # (AUTO) 5.1 10^3/uL (1.8-7.8); NEUTROPHILS % (AUTO) 57 % (42-75); PLATELET COUNT 250 10^3/uL (130-400)
[2021-01-07 11:18] LABS: ALBUMIN 4.2 GM/DL (3.2-4.5); BILIRUBIN,TOTAL 0.9 MG/DL (0.1-1.0); CALCIUM 9.3 MG/DL (8.5-10.1); CREATININE SERUM 0.97 MG/DL (0.60-1.30); POTASSIUM 4.1 MMOL/L (3.6-5.0); TOTAL PROTEIN 6.8 GM/DL (6.4-8.2)
[2021-03-01 10:29] LABS: BASOPHILS # (AUTO) 0.1 10^3/uL (0.0-0.1); BASOPHILS % (AUTO) 1 % (0-10); EOSINOPHILS # (AUTO) 0.2 10^3/uL (0.0-0.3); EOSINOPHILS % (AUTO) 3 % (0-10); HEMATOCRIT 39 % (35-52); HEMOGLOBIN 12.6 g/dL (11.5-16.0); LYMPHOCYTES # (AUTO) 2.9 10^3/uL (1.0-4.0); LYMPHOCYTES % (AUTO) 32 % (12-44); MEAN CORPUSCULAR HEMOGLOBIN 30 pg (25-34); MEAN CORPUSCULAR HGB CONC 33 g/dL (32-36); MEAN CORPUSCULAR VOLUME 93 fL (80-99); MEAN PLATELET VOLUME 12.2 fL (9.0-12.2); MONOCYTES # (AUTO) 0.9 10^3/uL (0.0-1.0); MONOCYTES % (AUTO) 11 % (0-12); NEUTROPHILS # (AUTO) 4.7 10^3/uL (1.8-7.8); NEUTROPHILS % (AUTO) 53 % (42-75); PLATELET COUNT 299 10^3/uL (130-400); WHITE BLOOD COUNT 8.9 10^3/uL (4.3-11.0)
[2021-03-01 10:50] LABS: ALBUMIN 4.2 GM/DL (3.2-4.5); BILIRUBIN,TOTAL 0.8 MG/DL (0.1-1.0); CALCIUM 9.7 MG/DL (8.5-10.1); CREATININE SERUM 1.15 MG/DL (0.60-1.30); POTASSIUM 4.6 MMOL/L (3.6-5.0); TOTAL PROTEIN 7.2 GM/DL (6.4-8.2)
[~2021-03-08 10:30] MED LIST changes: -ACETAMINOPHEN 500 MG TAB (TYLENOL) CANCER CTR ONE; -diphenhydrAMINE 25 MG TAB (BENADRYL) CANCER CENTER PO ONE
[2021-03-09] MEDS ORDERED: diphenhydrAMINE 25 MG TAB (BENADRYL) CANCER CENTER PO SCH (11:00)
[2021-03-09] MEDS ORDERED: ACETAMINOPHEN 500 MG TAB (TYLENOL) CANCER CTR PO PRN (11:00)
[2021-03-09] MEDS ORDERED: NS (IVPB) CANCER CENTER 250 ML IV SCH (11:00)
== END 2021-04-07 | disposition home or self-care (01) ==
LOC: ONC 10:30
PROVIDERS: ATTEND Internal Medicine Hematology & Oncology
DX: C91.10 Chronic lymphocytic leukemia of B-cell type not having achieved remission (principal); D59.12 Cold autoimmune hemolytic anemia; D80.1 Nonfamilial hypogammaglobulinemia; H91.10 Presbycusis, unspecified ear; Z92.21 Personal history of antineoplastic chemotherapy; Z98.890 Other specified postprocedural states; Z79.899 Other long term (current) drug therapy
CPT/HCPCS: 80053; 84443; 85025; 96365; 96366; 99213

== ENCOUNTER → 2021-05-21 | Outpatient (CLI) | payer MEDICARE ==
[~2021-05-21] MED LIST changes: -ACETAMINOPHEN 500 MG TAB (TYLENOL) CANCER CTR PO PRN; -IVIG 20 GM (PRIVIGEN) CANCER C 200 ML IV SCH; -IVIG 5 GM (PRIVIGEN) CANCER CT 50 ML IV SCH; -NS (IVPB) CANCER CENTER 250 ML IV SCH; -diphenhydrAMINE 25 MG TAB (BENADRYL) CANCER CENTER PO SCH
--- NOTE | 2021-05-21 12:21 | Diagnostic Imaging Report ---
EXAMINATION: Lumbar spine at 10:43 a.m. INDICATION: Back pain. AP, lateral and spot lateral views were obtained. There are no prior lumbar spine examinations available for comparison. The lateral view shows fairly severe degenerative disc and bony disease at every level of the lumbar spine except at L1-L2. Specifically, there is narrowing of the disc spaces and sclerosis of the opposing endplates of L2, L3, L4 and L5. There is no fracture or acute bony abnormality appreciated. There is no sign of a paraspinal mass. There is mild symmetrical sclerosis of the sacroiliac joints. IMPRESSION: 1. There is no evidence for an acute bony abnormality. 2. 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 3. If there is clinical concern regarding spinal stenosis or nerve root encroachment, then MRI would be recommended for further study. Dictated by: Dictated on workstation # [id number]
== END ==
LOC: RAD 10:04
PROVIDERS: ATTEND Internal Medicine
DX: M51.36 Other intervertebral disc degeneration, lumbar region (principal)
CPT/HCPCS: 72100

== ENCOUNTER 2021-06-29 09:19 | Outpatient (RCR) | payer MEDICARE ==
[2021-04-26 10:03] LABS: BASOPHILS # (AUTO) 0.1 10^3/uL (0.0-0.1); BASOPHILS % (AUTO) 1 % (0-10); EOSINOPHILS # (AUTO) 0.4 10^3/uL (0.0-0.3); EOSINOPHILS % (AUTO) 4 % (0-10); HEMATOCRIT 37 % (35-52); HEMOGLOBIN 11.8 g/dL (11.5-16.0); LYMPHOCYTES % (AUTO) 35 % (12-44); MEAN CORPUSCULAR HEMOGLOBIN 31 pg (25-34); MEAN CORPUSCULAR HGB CONC 32 g/dL (32-36); MEAN CORPUSCULAR VOLUME 96 fL (80-99); MONOCYTES # (AUTO) 0.9 10^3/uL (0.0-1.0); MONOCYTES % (AUTO) 10 % (0-12); NEUTROPHILS # (AUTO) 4.2 10^3/uL (1.8-7.8); NEUTROPHILS % (AUTO) 49 % (42-75); PLATELET COUNT 277 10^3/uL (130-400); WHITE BLOOD COUNT 8.6 10^3/uL (4.3-11.0)
[2021-04-26 10:13] LABS: CALCIUM 9.4 MG/DL (8.5-10.1); CREATININE SERUM 1.02 MG/DL (0.60-1.30); POTASSIUM 4.5 MMOL/L (3.6-5.0)
[2021-06-24 10:08] LABS: BASOPHILS # (AUTO) 0.1 10^3/uL (0.0-0.1); BASOPHILS % (AUTO) 1 % (0-10); EOSINOPHILS # (AUTO) 0.2 10^3/uL (0.0-0.3); EOSINOPHILS % (AUTO) 2 % (0-10); HEMATOCRIT 37 % (35-52); HEMOGLOBIN 11.9 g/dL (11.5-16.0); LYMPHOCYTES # (AUTO) 3.1 10^3/uL (1.0-4.0); LYMPHOCYTES % (AUTO) 34 % (12-44); MEAN CORPUSCULAR HEMOGLOBIN 30 pg (25-34); MEAN CORPUSCULAR HGB CONC 32 g/dL (32-36); MEAN CORPUSCULAR VOLUME 94 fL (80-99); MEAN PLATELET VOLUME 12.1 fL (9.0-12.2); MONOCYTES # (AUTO) 1.1 10^3/uL (0.0-1.0); MONOCYTES % (AUTO) 12 % (0-12); NEUTROPHILS # (AUTO) 4.6 10^3/uL (1.8-7.8); NEUTROPHILS % (AUTO) 51 % (42-75); PLATELET COUNT 318 10^3/uL (130-400); WHITE BLOOD COUNT 9.2 10^3/uL (4.3-11.0)
[2021-06-24 10:27] LABS: ALBUMIN 3.9 GM/DL (3.2-4.5); BILIRUBIN,TOTAL 0.8 MG/DL (0.1-1.0); CALCIUM 9.6 MG/DL (8.5-10.1); CREATININE SERUM 0.89 MG/DL (0.60-1.30); POTASSIUM 3.9 MMOL/L (3.6-5.0); TOTAL PROTEIN 6.4 GM/DL (6.4-8.2)
[~2021-06-29 09:19] MED LIST changes: +ACETAMINOPHEN 500 MG TAB (TYLENOL) CANCER CTR PO PRN; +IVIG 20 GM (PRIVIGEN) CANCER C 200 ML IV SCH; +IVIG 5 GM (PRIVIGEN) CANCER CT 50 ML IV SCH; +NS (IVPB) CANCER CENTER 250 ML IV SCH; +diphenhydrAMINE 25 MG TAB (BENADRYL) CANCER CENTER PO SCH
== END 2021-07-25 | disposition home or self-care (01) ==
LOC: ONC 09:19
PROVIDERS: ATTEND Internal Medicine Hematology & Oncology
DX: C91.10 Chronic lymphocytic leukemia of B-cell type not having achieved remission (principal); D80.1 Nonfamilial hypogammaglobulinemia; H91.90 Unspecified hearing loss, unspecified ear; G47.30 Sleep apnea, unspecified; Z92.21 Personal history of antineoplastic chemotherapy; Z98.890 Other specified postprocedural states; Z79.899 Other long term (current) drug therapy
CPT/HCPCS: 80048; 80053; 82784; 85025; 96365; 96366

== ENCOUNTER 2021-08-24 08:48 | Outpatient (RCR) | payer MEDICARE ==
[2021-08-19 10:06] LABS: BASOPHILS # (AUTO) 0.1 10^3/uL (0.0-0.1); BASOPHILS % (AUTO) 1 % (0-10); EOSINOPHILS # (AUTO) 0.1 10^3/uL (0.0-0.3); EOSINOPHILS % (AUTO) 2 % (0-10); HEMATOCRIT 39 % (35-52); HEMOGLOBIN 12.7 g/dL (11.5-16.0); LYMPHOCYTES # (AUTO) 3.2 10^3/uL (1.0-4.0); LYMPHOCYTES % (AUTO) 35 % (12-44); MEAN CORPUSCULAR HEMOGLOBIN 30 pg (25-34); MEAN CORPUSCULAR HGB CONC 32 g/dL (32-36); MEAN CORPUSCULAR VOLUME 93 fL (80-99); MEAN PLATELET VOLUME 12.1 fL (9.0-12.2); MONOCYTES % (AUTO) 11 % (0-12); NEUTROPHILS # (AUTO) 4.8 10^3/uL (1.8-7.8); NEUTROPHILS % (AUTO) 51 % (42-75); PLATELET COUNT 250 10^3/uL (130-400); WHITE BLOOD COUNT 9.3 10^3/uL (4.3-11.0)
[2021-08-19 10:26] LABS: BILIRUBIN,TOTAL 0.9 MG/DL (0.1-1.0); CALCIUM 9.5 MG/DL (8.5-10.1); CREATININE SERUM 1.07 MG/DL (0.60-1.30); POTASSIUM 3.9 MMOL/L (3.6-5.0); TOTAL PROTEIN 6.5 GM/DL (6.4-8.2)
== END 2021-09-17 | disposition home or self-care (01) ==
LOC: ONC 08:48
PROVIDERS: ATTEND Internal Medicine Hematology & Oncology
DX: Z51.12 Encounter for antineoplastic immunotherapy (principal); C91.10 Chronic lymphocytic leukemia of B-cell type not having achieved remission; D80.1 Nonfamilial hypogammaglobulinemia; H91.90 Unspecified hearing loss, unspecified ear; G47.30 Sleep apnea, unspecified; Z92.21 Personal history of antineoplastic chemotherapy; Z98.890 Other specified postprocedural states; Z79.899 Other long term (current) drug therapy; Z90.81 Acquired absence of spleen; Z86.19 Personal history of other infectious and parasitic diseases; Z87.448 Personal history of other diseases of urinary system; Z87.19 Personal history of other diseases of the digestive system
CPT/HCPCS: 80053; 82784; 85025; 96365; 96366; 99213

== ENCOUNTER 2021-10-19 09:02 | Outpatient (RCR) | payer MEDICARE ==
[2021-10-19 10:13] LABS: BASOPHILS # (AUTO) 0.1 10^3/uL (0.0-0.1); BASOPHILS % (AUTO) 1 % (0-10); EOSINOPHILS # (AUTO) 0.2 10^3/uL (0.0-0.3); EOSINOPHILS % (AUTO) 2 % (0-10); HEMATOCRIT 41 % (35-52); HEMOGLOBIN 13.2 g/dL (11.5-16.0); LYMPHOCYTES # (AUTO) 2.5 10^3/uL (1.0-4.0); LYMPHOCYTES % (AUTO) 32 % (12-44); MEAN CORPUSCULAR HEMOGLOBIN 30 pg (25-34); MEAN CORPUSCULAR HGB CONC 32 g/dL (32-36); MEAN CORPUSCULAR VOLUME 92 fL (80-99); MONOCYTES # (AUTO) 0.8 10^3/uL (0.0-1.0); MONOCYTES % (AUTO) 11 % (0-12); NEUTROPHILS # (AUTO) 4.1 10^3/uL (1.8-7.8); NEUTROPHILS % (AUTO) 54 % (42-75); PLATELET COUNT 291 10^3/uL (130-400); WHITE BLOOD COUNT 7.7 10^3/uL (4.3-11.0)
[2021-10-19 10:32] LABS: ALBUMIN 4.2 GM/DL (3.2-4.5); BILIRUBIN,TOTAL 0.9 MG/DL (0.1-1.0); CALCIUM 9.6 MG/DL (8.5-10.1); CREATININE SERUM 1.07 MG/DL (0.60-1.30); POTASSIUM 4.3 MMOL/L (3.6-5.0); TOTAL PROTEIN 7.1 GM/DL (6.4-8.2)
[2021-11-04] MEDS ORDERED: CEFU250T80 PO (12:15)
== END 2021-11-15 | disposition home or self-care (01) ==
LOC: ONC 09:02
PROVIDERS: ATTEND Internal Medicine Hematology & Oncology
DX: Z51.12 Encounter for antineoplastic immunotherapy (principal); Z45.2 Encounter for adjustment and management of vascular access device; C91.10 Chronic lymphocytic leukemia of B-cell type not having achieved remission; D80.1 Nonfamilial hypogammaglobulinemia; H91.90 Unspecified hearing loss, unspecified ear; G47.30 Sleep apnea, unspecified; Z98.890 Other specified postprocedural states; Z79.899 Other long term (current) drug therapy; Z90.81 Acquired absence of spleen
CPT/HCPCS: 80053; 82784 ×3; 85025; 96365; 96375; G0463; 36415; 99213

== ENCOUNTER 2021-11-04 10:15 | Emergency (ER) | payer MEDICARE ==
[~2021-11-04] VITALS: Ht 152.4 cm; Wt 64.8 kg
[~2021-11-04 10:15] MED LIST changes: -ACETAMINOPHEN 500 MG TAB (TYLENOL) CANCER CTR PO PRN; -IVIG 20 GM (PRIVIGEN) CANCER C 200 ML IV SCH; -IVIG 5 GM (PRIVIGEN) CANCER CT 50 ML IV SCH; -NS (IVPB) CANCER CENTER 250 ML IV SCH; -diphenhydrAMINE 25 MG TAB (BENADRYL) CANCER CENTER PO SCH
--- NOTE | 2021-11-04 10:52 | ED General ---
General Chief Complaint: General Problems/Pain Stated Complaint: FEVER,L BP Nursing Triage Note: EMS REPORTS PT HAD LOW BLOOD PRESSURE AT HOME Source of Information: Patient, EMS, Family Exam Limitations: No Limitations History of Present Illness Date Seen by Provider: Nov 04, 2021 Time Seen by Provider: 10:48 Initial Comments To ER by EMS from home with reports of hypotension. They check her blood pressure every morning this morning she was found to be at about 89 systolic and typically she runs in the 120s to 130s. She is otherwise healthy, she has a history of non-Hodgkin's lymphoma for which she receives IVIG every 2 months. She did have 4 episodes of watery diarrhea this morning no abdominal pain she has some nausea that she attributes to sinus drainage. No fevers or chills and she states that she feels fine currently. On arrival to ER blood pressure back up to 122 over 80s. Timing/Duration: 4-6 Hours Severity: Moderate Associated Systoms: Nausea/Vomiting Allergies and Home Medications Allergies Coded Allergies: Penicillins (Verified Allergy, Unknown, 04/19/17) Sulfa (Sulfonamide Antibiotics) (Verified Allergy, Unknown, 04/19/17) clindamycin (Verified Allergy, Unknown, 04/19/17) Patient Home Medication List Home Medication List Reviewed: Yes Ascorbate Calcium (Vitamin C) 500 Mg Tablet, 500 MG PO DAILY, (Reported) Entered as Reported by: MANNY RAJAN on 04/19/17 1017 Calcium Carbonate/Vitamin D3 (Calcium 500 + Vit D 200 Caplet) 1 Each Tablet, 1 TAB PO DAILY, (Reported) Entered as Reported by: MANNY RAJAN on 08/29/18 1456 Cefuroxime Axetil (Cefuroxime) 250 Mg Tablet, 250 MG PO BID Prescribed by: TRISTIN HERNANDEZ on 11/04/21 1215 Diphenhydramine HCl (Benadryl) 25 Mg Capsule, 25 MG PO HS, (Reported) Entered as Reported by: MANNY RAJAN on 04/19/17 1017 Hydrocodone Bit/Acetaminophen (Lortab 5 Mg Tablet) 1 Tab Tab, 0.5-1 EACH PO Q6H PRN for PAIN-MODERATE Prescribed by: MARY KC on 11/25/18 1418 Ipratropium [place] (Ipratropium Jewell) 15 Ml Naspr, 1 SPRAY NS DAILY PRN for CONGESTION, (Reported) Entered as Reported by: MANNY RAJAN on 08/29/18 1456 Losartan Potassium (Losartan Potassium) 25 Mg Tablet, 25 MG PO DAILY, (Reported) Entered as Reported by: MORGAN BROWN on 08/29/18 1011 Multivitamins with Iron (Daily Vitamin + Iron) 1 Each Tablet, 1 TAB PO DAILY, (Reported) Entered as Reported by: MANNY RAJAN on 04/19/17 1017 Pantoprazole Sodium (Protonix) 40 Mg Tablet.dr, 40 MG PO DAILY Prescribed by: LANCE GAN on 08/30/18 1526 Propranolol HCl (Propranolol HCl ER) 60 Mg Cap.sa.24h, 60 MG PO DAILY Prescribed by: JACOBY LEE on 08/31/18 1259 Review of Systems Review of Systems Constitutional: see HPI; No chills, No fever EENTM: see HPI Respiratory: no symptoms reported; No cough, No short of breath Cardiovascular: no symptoms reported Gastrointestinal: No abdominal pain; diarrhea, nausea Genitourinary: see HPI Musculoskeletal: no symptoms reported Skin: no symptoms reported Psychiatric/Neurological: No Symptoms Reported Hematologic/Lymphatic: No Symptoms Reported Past Bxtjvqq-Ecioeu-Avecdx Hx Patient Social History Tobacco Use?: No Use of E-Cig and/or Vaping dev: No Substance use?: No Alcohol Use?: No Pt feels they are or have been: No Immunizations Up To Date PED Vaccines UTD: No Influenza Vaccine Up-to-Date: Yes; Up-to-Date First/Initial COVID19 Vaccinat: SPRING 2020 Seasonal Allergies Seasonal Allergies: No Past Medical History Surgeries: Yes Appendectomy, Gallbladder, Hysterectomy, Tonsillectomy Respiratory: No Currently Using CPAP: No Currently Using BIPAP: No Cardiac: Yes Hypertension Neurological: No [employer] History: Hysterectomy Genitourinary: No Gastrointestinal: Yes Esophageal Varices Musculoskeletal: No Arthritis Endocrine: No HEENT: Yes Cataract Hearing Impairment: Hard of Hearing, Bilateral Hearing Aide Cancer: No Lymphoma Did You Recieve Any Treatments: Yes What Type of Treatment Did You: Chemotherapy Psychosocial: No Integumentary: No Blood Disorders: No Family Medical History Cardiovascular disease 19 MOTHER Completed stroke 19 MOTHER FH: kidney cancer 19 FATHER Hypertension 19 MOTHER Severe allergy No Family History of: Shady's disease Alcoholism Alzheimer's disease Dementia Diabetes mellitus Drug abuse Myocardial infarction Seizure disorder Tuberculosis Physical Exam Vital Signs Vital Signs - First Documented 11/04/21 10:28 Temp 36.2 Pulse 82 Resp 16 B/P (MAP) 146/88 (107) Pulse Ox 96 Capillary Refill : Height, Weight, BMI Height: 5'2.00" Weight: 142lbs. 2.0oz. 64.742579ji; 27.00 BMI Method:Stated General Appearance: No Apparent Distress, WD/WN, Other (Elderly but alert oriented very talkative and pleasant no distress. Hemodynamically stable with a systolic in the 130s currently.) Neck: Full Range of Motion, Normal Inspection Respiratory: No Accessory Muscle Use, No Respiratory Distress Gastrointestinal: Normal Bowel Sounds, Non Tender, Soft Extremity: Normal Capillary Refill, Normal Inspection Neurologic/Psychiatric: Alert, Oriented x3 Skin: Normal Color, Warm/Dry Progress/Results/Core Measures Suspected Sepsis SIRS Temperature: Pulse: 82 Respiratory Rate: 16 Laboratory Tests 11/04/21 11:02: White Blood Count 9.0 Blood Pressure 146 /88 Mean: 107 Laboratory Tests 11/04/21 11:02: Creatinine 0.98, Platelet Count 246, Total Bilirubin 0.9 Results/Orders Lab Results Laboratory Tests Test 11/04/21 11:02 11/04/21 11:34 Range/Units White Blood Count 9.0 4.3-11.0 10^3/uL Red Blood Count 4.28 3.80-5.11 10^6/uL Hemoglobin 13.1 11.5-16.0 g/dL Hematocrit 40 35-52 % Mean Corpuscular Volume 93 80-99 fL Mean Corpuscular Hemoglobin 31 25-34 pg Mean Corpuscular Hemoglobin Concent 33 32-36 g/dL Red Cell Distribution Width 15.0 H 10.0-14.5 % Platelet Count 246 130-400 10^3/uL Mean Platelet Volume 11.9 9.0-12.2 fL Immature Granulocyte % (Auto) 0 % Neutrophils (%) (Auto) 53 42-75 % Lymphocytes (%) (Auto) 35 12-44 % Monocytes (%) (Auto) 10 0-12 % Eosinophils (%) (Auto) 1 0-10 % Basophils (%) (Auto) 1 0-10 % Neutrophils # (Auto) 4.8 1.8-7.8 10^3/uL Lymphocytes # (Auto) 3.1 1.0-4.0 10^3/uL Monocytes # (Auto) 0.9 0.0-1.0 10^3/uL Eosinophils # (Auto) 0.1 0.0-0.3 10^3/uL Basophils # (Auto) 0.1 0.0-0.1 10^3/uL Immature Granulocyte # (Auto) 0.0 0.0-0.1 10^3/uL Sodium Level 141 135-145 MMOL/L Potassium Level 4.1 3.6-5.0 MMOL/L Chloride Level 111 H 98-107 MMOL/L Carbon Dioxide Level 19 L 21-32 MMOL/L Anion Gap 11 5-14 MMOL/L Blood Urea Nitrogen 33 H 7-18 MG/DL Creatinine 0.98 0.60-1.30 MG/DL Estimat Glomerular Filtration Rate 55 BUN/Creatinine Ratio 34 Glucose Level 93 70-105 MG/DL Calcium Level 9.5 8.5-10.1 MG/DL Corrected Calcium 9.5 8.5-10.1 MG/DL Total Bilirubin 0.9 0.1-1.0 MG/DL Aspartate Amino Transf (AST/SGOT) 26 5-34 U/L Alanine Aminotransferase (ALT/SGPT) 16 0-55 U/L Alkaline Phosphatase 93 40-136 U/L Total Protein 7.0 6.4-8.2 GM/DL Albumin 4.0 3.2-4.5 GM/DL Urine Color YELLOW Urine Clarity CLEAR Urine pH 6.0 5-9 Urine Specific [place] 1.020 1.016-1.022 Urine Protein NEGATIVE NEGATIVE Urine Glucose (UA) NEGATIVE NEGATIVE Urine Ketones NEGATIVE NEGATIVE Urine Nitrite NEGATIVE NEGATIVE Urine Bilirubin NEGATIVE NEGATIVE Urine Urobilinogen 0.2 < = 1.0 MG/DL Urine Leukocyte Esterase 3+ H NEGATIVE Urine RBC (Auto) 2+ H NEGATIVE Urine RBC 2-5 H /HPF Urine WBC 25-50 H /HPF Urine Crystals NONE /LPF Urine Bacteria LARGE H /HPF Urine Casts NONE /LPF Urine Mucus NEGATIVE /LPF Urine Culture Indicated YES My Orders Orders - TRISTIN HERNANDEZ APRN Cbc With Automated Diff (11/04/21 10:46) Comprehensive Metabolic Panel (11/04/21 10:46) Ed Iv/Invasive Line Start (11/04/21 10:46) Ua Culture If Indicated (11/04/21 10:46) Lactated Ringers (Lr 1000 Ml Iv Solution (11/04/21 11:00) Ondansetron Injection (Zofran Injectio (11/04/21 11:00) Urine Culture (11/04/21 11:34) Ceftriaxone 1 Gm Pre-Mix (Rocephin 1 Gm (11/04/21 12:15) Medications Given in ED Current Medications Medications Dose Ordered Sig/Hema Route Start Time Stop Time Status Last Admin Dose Admin Ondansetron HCl 4 mg ONCE ONCE IVP 11/04/21 11:00 11/04/21 11:01 DC 11/04/21 11:11 4 MG Vital Signs/I&O 11/04/21 10:28 Temp 36.2 Pulse 82 Resp 16 B/P (MAP) 146/88 (107) Pulse Ox 96 Capillary Refill : Blood Pressure Mean: 107 Departure Communication (Admissions) 1222-still alert and oriented very pleasant blood pressure still 130s systolic. She has received her bag of IV fluids. Will give a gram of Rocephin and discharged home with a prescription for Ceftin 250 twice daily Impression Primary Impression: Transient hypotension Additional Impression: Diarrhea Disposition: HOME, SELF-CARE Condition: Improved Departure-Patient Inst. Decision time for Depature: 10:51 Referrals: JACOBY ELE MD (PCP/Family) Primary Care Physician Patient Instructions: Diarrhea, Adult ED, Low Blood Pressure (DC) Add. Discharge Instructions: 1. Stay on top your fluids. Pedialyte is a good choice. Return to ER for any concerns. You can use [id number] Imodium if need be to control the diarrhea symptoms. Follow-up with Dr. Lee later this week or next. All discharge instructions reviewed with patient and/or family. Voiced understanding. Scripts Cefuroxime Axetil (Cefuroxime) 250 Mg Tablet 250 MG PO BID, #10 TAB Prov: TRISTIN HERNANDEZ APRN 11/04/21 TRISTIN HERNANDEZ APRN Nov 04, 2021 10:52
[2021-11-04] MEDS ORDERED: ONDANSETRON 4 MG/2 ML (SDV) Z0FRAN IVP ONE (11:00)
[2021-11-04] MEDS ORDERED: LACTATED RINGERS 1,000 ML IV SCH (11:00)
[2021-11-04 11:17] LABS: BASOPHILS # (AUTO) 0.1 10^3/uL (0.0-0.1); BASOPHILS % (AUTO) 1 % (0-10); EOSINOPHILS # (AUTO) 0.1 10^3/uL (0.0-0.3); EOSINOPHILS % (AUTO) 1 % (0-10); HEMATOCRIT 40 % (35-52); HEMOGLOBIN 13.1 g/dL (11.5-16.0); LYMPHOCYTES # (AUTO) 3.1 10^3/uL (1.0-4.0); LYMPHOCYTES % (AUTO) 35 % (12-44); MEAN CORPUSCULAR HEMOGLOBIN 31 pg (25-34); MEAN CORPUSCULAR HGB CONC 33 g/dL (32-36); MEAN CORPUSCULAR VOLUME 93 fL (80-99); MEAN PLATELET VOLUME 11.9 fL (9.0-12.2); MONOCYTES # (AUTO) 0.9 10^3/uL (0.0-1.0); MONOCYTES % (AUTO) 10 % (0-12); NEUTROPHILS # (AUTO) 4.8 10^3/uL (1.8-7.8); NEUTROPHILS % (AUTO) 53 % (42-75); PLATELET COUNT 246 10^3/uL (130-400)
[2021-11-04 11:33] LABS: POTASSIUM 4.1 MMOL/L (3.6-5.0)
[2021-11-04 11:34] LABS: CALCIUM 9.5 MG/DL (8.5-10.1)
[2021-11-04 11:37] LABS: BILIRUBIN,TOTAL 0.9 MG/DL (0.1-1.0)
[2021-11-04 11:39] LABS: CREATININE SERUM 0.98 MG/DL (0.60-1.30)
[2021-11-04 11:47] LABS: BILIRUBIN,URINE NEGATIVE (NEGATIVE); CLARITY,URINE CLEAR; COLOR,URINE YELLOW; GLUCOSE, URINE (UA) NEGATIVE (NEGATIVE); KETONES,URINE NEGATIVE (NEGATIVE); LEUKOCYTE ESTERASE ,URINE 3+ (NEGATIVE); NITRITE,URINE NEGATIVE (NEGATIVE); PROTEIN,URINE NEGATIVE (NEGATIVE)
[2021-11-04 12:02] LABS: BACTERIA,URINE LARGE /HPF; WBC,URINE 25-50 /HPF
[2021-11-04] MEDS ORDERED: CEFU250T80 PO (12:15)
[2021-11-04] MEDS ORDERED: cefTRIAXone 1 GM PRE-MIX 50 ML IV ONE (12:15)
[2021-11-04 13:44] VITALS: BP 125/68
== END 2021-11-04 13:41 | disposition home or self-care (01) ==
LOC: EDUNIT# 10:15 → ER 10:26
DX: I95.9 Hypotension, unspecified (principal); R19.7 Diarrhea, unspecified; I10 Essential (primary) hypertension
CPT/HCPCS: 36415; 80053; 81000; 85025; 87077; 87088; 87186

== ENCOUNTER 2021-12-13 09:46 | Outpatient (RCR) | payer MEDICARE ==
[~2021-12-13 09:46] MED LIST changes: +ACETAMINOPHEN 500 MG TAB (TYLENOL) CANCER CTR PO PRN; +CEFU250T80 PO; +IVIG 20 GM (PRIVIGEN) CANCER C 200 ML IV SCH; +IVIG 5 GM (PRIVIGEN) CANCER CT 50 ML IV SCH; +NS (IVPB) CANCER CENTER 250 ML IV SCH; +diphenhydrAMINE 25 MG TAB (BENADRYL) CANCER CENTER PO SCH
[2021-12-13 10:21] LABS: BASOPHILS # (AUTO) 0.1 10^3/uL (0.0-0.1); BASOPHILS % (AUTO) 1 % (0-10); EOSINOPHILS # (AUTO) 0.1 10^3/uL (0.0-0.3); EOSINOPHILS % (AUTO) 1 % (0-10); HEMATOCRIT 41 % (35-52); HEMOGLOBIN 13.3 g/dL (11.5-16.0); LYMPHOCYTES # (AUTO) 3.2 10^3/uL (1.0-4.0); LYMPHOCYTES % (AUTO) 29 % (12-44); MEAN CORPUSCULAR HEMOGLOBIN 30 pg (25-34); MEAN CORPUSCULAR HGB CONC 32 g/dL (32-36); MEAN CORPUSCULAR VOLUME 94 fL (80-99); MEAN PLATELET VOLUME 11.8 fL (9.0-12.2); MONOCYTES # (AUTO) 0.9 10^3/uL (0.0-1.0); MONOCYTES % (AUTO) 8 % (0-12); NEUTROPHILS # (AUTO) 6.7 10^3/uL (1.8-7.8); NEUTROPHILS % (AUTO) 61 % (42-75); PLATELET COUNT 336 10^3/uL (130-400); WHITE BLOOD COUNT 11.1 10^3/uL (4.3-11.0)
[2021-12-13 10:44] LABS: ALBUMIN 4.1 GM/DL (3.2-4.5); BILIRUBIN,TOTAL 0.8 MG/DL (0.1-1.0); CALCIUM 9.8 MG/DL (8.5-10.1); CREATININE SERUM 1.1 MG/DL (0.60-1.30); POTASSIUM 3.8 MMOL/L (3.6-5.0); TOTAL PROTEIN 7.1 GM/DL (6.4-8.2)
== END 2021-12-16 | disposition home or self-care (01) ==
LOC: ONC 09:46
PROVIDERS: ATTEND Internal Medicine Hematology & Oncology
DX: Z51.11 Encounter for antineoplastic chemotherapy (principal); Z45.2 Encounter for adjustment and management of vascular access device; C91.10 Chronic lymphocytic leukemia of B-cell type not having achieved remission; D80.1 Nonfamilial hypogammaglobulinemia; H91.90 Unspecified hearing loss, unspecified ear; G47.30 Sleep apnea, unspecified; Z98.890 Other specified postprocedural states; Z79.899 Other long term (current) drug therapy; Z90.81 Acquired absence of spleen
CPT/HCPCS: 80053; 82784 ×3; 85025; 96365; 96366; 96375; G0463; 36415; 99213

== ENCOUNTER → 2022-01-10 | Outpatient (CLI) | payer MEDICARE ==
[~2022-01-10] MED LIST changes: -ACETAMINOPHEN 500 MG TAB (TYLENOL) CANCER CTR PO PRN; -IVIG 20 GM (PRIVIGEN) CANCER C 200 ML IV SCH; -IVIG 5 GM (PRIVIGEN) CANCER CT 50 ML IV SCH; -NS (IVPB) CANCER CENTER 250 ML IV SCH; -diphenhydrAMINE 25 MG TAB (BENADRYL) CANCER CENTER PO SCH
[2022-01-10 11:04] LABS: BILIRUBIN,URINE NEGATIVE (NEGATIVE); CLARITY,URINE CLOUDY; COLOR,URINE YELLOW; GLUCOSE, URINE (UA) NEGATIVE (NEGATIVE); KETONES,URINE NEGATIVE (NEGATIVE); LEUKOCYTE ESTERASE ,URINE 3+ (NEGATIVE); NITRITE,URINE POSITIVE (NEGATIVE); PROTEIN,URINE TRACE (NEGATIVE)
[2022-01-10 11:33] LABS: BACTERIA,URINE LARGE /HPF; WBC,URINE >100 /HPF
== END ==
LOC: LAB 10:34
PROVIDERS: ATTEND Internal Medicine
DX: R53.1 Weakness (principal); R30.0 Dysuria
CPT/HCPCS: 36415; 81000; 84443; 87077; 87088

== ENCOUNTER → 2022-01-25 | Outpatient (CLI) | payer MEDICARE ==
[2022-01-25 13:15] LABS: BACTERIA,URINE LARGE /HPF; CLARITY,URINE VERY CLOUDY; COLOR,URINE YELLOW; WBC,URINE TNTC /HPF
[2022-01-25 13:20] LABS: BILIRUBIN,URINE 1+ (NEGATIVE); GLUCOSE, URINE (UA) NEGATIVE (NEGATIVE); KETONES,URINE NEGATIVE (NEGATIVE); NITRITE,URINE POSITIVE (NEGATIVE); PROTEIN,URINE 3+ (NEGATIVE)
[2022-01-25 13:21] LABS: LEUKOCYTE ESTERASE ,URINE 3+ (NEGATIVE)
[2022-01-25 13:22] LABS: RBC,URINE 0-2 /HPF
== END ==
LOC: LABNPT 12:43
PROVIDERS: ATTEND Internal Medicine
DX: N39.0 Urinary tract infection, site not specified (principal)
CPT/HCPCS: 81000; 87088

== ENCOUNTER 2022-02-07 09:15 | Outpatient (RCR) | payer MEDICARE ==
[~2022-02-07 09:15] MED LIST changes: +ACETAMINOPHEN 500 MG TAB (TYLENOL) PO PRN; +HEParin (CENTRAL IV FLUSH) 500 UNIT/5 ML SYR IV PRN; +IVIG 20 GM (PRIVIGEN) 200 ML IV SCH; +IVIG 5 GM (PRIVIGEN) 50 ML IV SCH; +diphenhydrAMINE 25 MG TAB (BENADRYL) PO SCH
[2022-02-07 09:47] LABS: BASOPHILS # (AUTO) 0.1 10^3/uL (0.0-0.1); BASOPHILS % (AUTO) 1 % (0-10); EOSINOPHILS # (AUTO) 0.2 10^3/uL (0.0-0.3); EOSINOPHILS % (AUTO) 2 % (0-10); HEMATOCRIT 42 % (35-52); HEMOGLOBIN 13.8 g/dL (11.5-16.0); LYMPHOCYTES # (AUTO) 4.2 10^3/uL (1.0-4.0); LYMPHOCYTES % (AUTO) 33 % (12-44); MEAN CORPUSCULAR HEMOGLOBIN 30 pg (25-34); MEAN CORPUSCULAR HGB CONC 33 g/dL (32-36); MEAN CORPUSCULAR VOLUME 90 fL (80-99); MEAN PLATELET VOLUME 11.5 fL (9.0-12.2); MONOCYTES # (AUTO) 1.4 10^3/uL (0.0-1.0); MONOCYTES % (AUTO) 11 % (0-12); NEUTROPHILS # (AUTO) 6.9 10^3/uL (1.8-7.8); NEUTROPHILS % (AUTO) 54 % (42-75); PLATELET COUNT 360 10^3/uL (130-400); WHITE BLOOD COUNT 12.9 10^3/uL (4.3-11.0)
[2022-02-07 10:09] LABS: ALBUMIN 3.9 GM/DL (3.2-4.5); BILIRUBIN,TOTAL 0.7 MG/DL (0.1-1.0); CALCIUM 9.7 MG/DL (8.5-10.1); CREATININE SERUM 0.84 MG/DL (0.60-1.30); POTASSIUM 4.1 MMOL/L (3.6-5.0); TOTAL PROTEIN 6.6 GM/DL (6.4-8.2)
[2022-02-07] MEDS ORDERED: diphenhydrAMINE 25 MG TAB (BENADRYL) PO SCH (10:45)
[2022-02-07] MEDS ORDERED: ACETAMINOPHEN 500 MG TAB (TYLENOL) PO SCH (10:45)
[2022-02-07] MEDS ORDERED: HEParin (CENTRAL IV FLUSH) 500 UNIT/5 ML SYR IV PRN ×2 (10:45)
[2022-02-07] MEDS ORDERED: IVIG 20 GM (PRIVIGEN) 200 ML IV SCH (11:00)
[2022-02-07] MEDS ORDERED: IVIG 5 GM (PRIVIGEN) 50 ML IV SCH (11:00)
[2022-02-14] MEDS ORDERED: OMEP20CA18 PO (14:25)
[2022-02-14] MEDS ORDERED: LATA7.5D OP (14:25)
[2022-02-15] MEDS ORDERED: FLUT16SP22 NSEACH (09:05)
[2022-02-15] MEDS ORDERED: VIT60OIN3 TP (09:05)
== END 2022-02-15 | disposition home or self-care (01) ==
LOC: ONC 09:15
PROVIDERS: ATTEND Internal Medicine Hematology & Oncology
DX: C91.10 Chronic lymphocytic leukemia of B-cell type not having achieved remission (principal); D80.1 Nonfamilial hypogammaglobulinemia; H91.90 Unspecified hearing loss, unspecified ear; R53.1 Weakness; R26.89 Other abnormalities of gait and mobility; G47.30 Sleep apnea, unspecified; R26.81 Unsteadiness on feet; Z98.890 Other specified postprocedural states; Z79.899 Other long term (current) drug therapy; I85.00 Esophageal varices without bleeding; L03.116 Cellulitis of left lower limb; N19 Unspecified kidney failure; Z86.19 Personal history of other infectious and parasitic diseases
CPT/HCPCS: 80053; 82784 ×3; 85025; 96365; 96366; 96375; G0463; 36415; 99213

== ENCOUNTER → 2022-02-08 | Outpatient (CLI) | payer MEDICARE ==
[~2022-02-08] MED LIST changes: -ACETAMINOPHEN 500 MG TAB (TYLENOL) PO PRN; +GADOTERATE 0.5 MMOL/ML (CLARISCAN) 20 ML VIAL IV ONE; -HEParin (CENTRAL IV FLUSH) 500 UNIT/5 ML SYR IV PRN; -IVIG 20 GM (PRIVIGEN) 200 ML IV SCH; -IVIG 5 GM (PRIVIGEN) 50 ML IV SCH; -diphenhydrAMINE 25 MG TAB (BENADRYL) PO SCH
--- NOTE | 2022-02-08 12:45 | Diagnostic Imaging Report ---
CLINICAL INDICATION: Patient having walking difficulties and balance issues. Patient has history of non-Hodgkin's lymphoma. EXAM: MRI of the brain performed without and with 12 cc of Clariscan IV contrast. Sequences include axial DWI, ADC map, axial gradient echo, axial FLAIR, axial T1, axial T2, axial T1 post IV contrast whole brain, coronal T1 fat-sat post IV contrast whole brain, and sagittal T1 fat-sat post IV contrast whole brain. COMPARISON: Head CT without contrast dated 08/29/2018. FINDINGS: There is no evidence of acute cerebral infarct, extracranial hemorrhage, brain herniation, or midline shift. There is no abnormal IV contrast enhancement. There are diffuse patchy and confluent high T2 signal white matter changes involving both cerebral hemispheres and periventricular regions. There is also symmetric high T2 signal involving the posterior limb of the internal capsule which extends along through the midbrain regions bilaterally, tiffanie, and anterior aspect of the brainstem medulla which involves portions of the cortical spinal tract. There is also involvement of the upper cervical cord seen to the C2 level which involves the right and left sides and also posterior aspects of the cord. There is no associated IV contrast enhancement. There is no enlargement or mass-like changes of the brainstem. There is also high T2 signal involving the dentate nuclei bilaterally. There is diffuse brain parenchymal volume loss. There is no hydrocephalus. The basal cisterns are unremarkable. The external soft tissues, skull, and orbits are unremarkable. There is mild mucosal thickening involving both maxillary sinuses and ethmoid sinus. The mastoid air cells are clear. IMPRESSION: 1: There is abnormal symmetric high T2 signal involving the posterior limbs of the bilateral internal capsules, bilateral midbrain, tiffanie, and anterior aspect of the brainstem medulla which involves the cortical spinal tract regions. There is also high T2 signal involvement of the right and left as well as posterior aspects of the upper cervical cord which is symmetric. There is no associated IV contrast enhancement or mass-like change seen. These findings likely correlate to the patient's symptoms. This may be related to post treatment changes if the patient has had recent therapy. An inflammatory process is suspected. Subacute combined degeneration may be considered. An infectious process or changes from acute infarct are suspected to be unlikely. MRI of the cervical spine, thoracic spine, and lumbar spine with and without contrast would help better evaluate the extent of findings. Also, if the patient has a previous MRI of the spine, this would be helpful for comparison. 2: Diffuse high T2 signal involving both cerebral hemispheres is seen which may related to post treatment changes but nonspecific leukoencephalopathy could be considered. Superimposed chronic small vessel ischemic disease and age-related changes may also be considered. 3: There is no other evidence of an acute intracranial process. 4: The report was faxed to the office of Dr. Gideon Cadet by [email or web address]:[email or web address] PM. Dictated by: Dictated on workstation # [id number]
== END ==
LOC: RAD 10:15
PROVIDERS: ATTEND Internal Medicine Hematology & Oncology
DX: C91.10 Chronic lymphocytic leukemia of B-cell type not having achieved remission (principal); R26.2 Difficulty in walking, not elsewhere classified
CPT/HCPCS: 70553; G0463; 99213

== ENCOUNTER 2022-02-14 09:34 | Observation (INO) | payer MEDICARE ==
[~2022-02-14] VITALS: Ht 152.4 cm; Wt 66.9 kg
[~2022-02-14 09:34] MED LIST changes: -GADOTERATE 0.5 MMOL/ML (CLARISCAN) 20 ML VIAL IV ONE
--- NOTE | 2022-02-14 09:44 | ED General ---
General Chief Complaint: Abdominal/GI Problems Stated Complaint: WEAKNESS Nursing Triage Note: PT BROGUHT IN BY [facility] FROM HOME WITH COMPLAINT OF WEAKNESS AND NAUSEA. PT WAS ON THE TOILET AND STARTED FEELING BAD. DENIES CP. Source of Information: Patient Exam Limitations: No Limitations History of Present Illness Date Seen by Provider: February 14, 2022 Time Seen by Provider: 09:36 Initial Comments Patient is an 89-year-old female who presents to the emergency room by ambulance today with a chief complaint of feeling generally weak and having significant nausea. Patient states she got up this morning and did not feel great, went to the bathroom and had a sudden onset of sweating, weakness and nausea. Family who was later present at the bedside with states that she was terry and they thought she was "gone". No loss of consciousness was reported. EMS stated that when they arrived she was sitting up on the toilet fully alert. She denies chest pain, shortness of breath. She has not been having black or bloody stool. She does have frequent urinary tract infections and recently finished antibiotics. No upper respiratory tract symptoms. She is vaccinated for COVID. No sick contacts that she is aware of. She does not leave her house. She states after IV Zofran in the ambulance she is feeling much better. She does arrive quite tachycardic with a heart rate of 115. Blood pressure is good. Oxygen saturations are good. Allergies and Home Medications Allergies Coded Allergies: Penicillins (Verified Allergy, Unknown, 04/19/17) Sulfa (Sulfonamide Antibiotics) (Verified Allergy, Unknown, 04/19/17) clindamycin (Verified Allergy, Unknown, 04/19/17) Patient Home Medication List Home Medication List Reviewed: Yes Diphenhydramine HCl (Benadryl) 25 Mg Capsule, 25 MG PO HS, (Reported) Entered as Reported by: MANNY RAJAN on 04/19/17 1017 Last Action: Held Fluticasone Propionate (Fluticasone Propionate) 50 Mcg/Actuation [place].susp, 1 SPRAY NSEACH DAILY, (Reported) Entered as Reported by: KACIE GONZALEZ on 02/15/22 0905 Last Action: Continued Latanoprost/Pf (Latanoprost 0.005% Eye Drop) 0.005 % Drops, 1 DROP OP HS, (Reported) Entered as Reported by: JONNA SEN on 02/14/22 1425 Last Action: Converted Multivitamins with Iron (Daily Vitamin + Iron) 1 Each Tablet, 1 TAB PO DAILY, (Reported) Entered as Reported by: MANNY RAJAN on 04/19/17 1017 Last Action: Held Omeprazole (Omeprazole) 20 Mg Capsule., 20 MG PO DAILY, (Reported) Entered as Reported by: JONNA SEN on 02/14/22 1425 Last Action: Continued Vit E Acetate/Wheat Germ/Aloe (Vitamin E Ointment) 60 Gm Oint...g., 1 APPLIC TP BID, (Reported) Entered as Reported by: KACIE GONZALEZ on 02/15/22 0905 Last Action: Held Discontinued Medications Ascorbate Calcium (Vitamin C) 500 Mg Tablet, 500 MG PO DAILY, (Reported) Discontinued Reason: No Longer Taking Entered as Reported by: MANNY RAJAN on 04/19/17 1017 Last Action: Discontinued Calcium Carbonate/Vitamin D3 (Calcium 500 + Vit D 200 Caplet) 1 Each Tablet, 1 TAB PO DAILY, (Reported) Discontinued Reason: No Longer Taking Entered as Reported by: MANNY RAJAN on 08/29/18 1456 Last Action: Discontinued Cefuroxime Axetil (Cefuroxime) 250 Mg Tablet, 250 MG PO BID Discontinued Reason: No Longer Taking Prescribed by: TRISTIN HERNANDEZ on 11/04/21 1215 Last Action: Discontinued Hydrocodone Bit/Acetaminophen (Lortab 5 Mg Tablet) 1 Tab Tab, 0.5-1 EACH PO Q6H PRN for PAIN-MODERATE Discontinued Reason: No Longer Taking Prescribed by: MARY KC on 11/25/18 1418 Last Action: Discontinued Losartan Potassium (Losartan Potassium) 25 Mg Tablet, 25 MG PO DAILY, (Reported) Discontinued Reason: No Longer Taking Entered as Reported by: MORGAN BROWN on 08/29/18 1011 Last Action: Discontinued Pantoprazole Sodium (Protonix) 40 Mg Tablet., 40 MG PO DAILY Discontinued Reason: No Longer Taking Prescribed by: LANCE GAN on 08/30/18 1526 Last Action: Discontinued Propranolol HCl (Propranolol HCl ER) 60 Mg Cap.sa.24h, 60 MG PO DAILY Discontinued Reason: No Longer Taking Prescribed by: JACOBY SCHWAB on 08/31/18 1259 Last Action: Discontinued Review of Systems Review of Systems Constitutional: see HPI EENTM: no symptoms reported Respiratory: no symptoms reported Cardiovascular: other (lightheaded) Gastrointestinal: nausea Genitourinary: no symptoms reported Musculoskeletal: no symptoms reported Skin: no symptoms reported Psychiatric/Neurological: Weakness All Other Systems Reviewed Negative Unless Noted: Yes Past Qnynmzv-Cbgxul-Utldcf Hx Patient Social History Tobacco Use?: No Use of E-Cig and/or Vaping dev: No Substance use?: No Alcohol Use?: No Pt feels they are or have been: No Immunizations Up To Date PED Vaccines UTD: No First/Initial COVID19 Vaccinat: SPRING 2020 Second COVID19 Vaccination Victoriano: SPRING 2020 Third COVID19 Vaccination Date: SPRING 2020 Seasonal Allergies Seasonal Allergies: No Past Medical History Surgeries: Yes Appendectomy, Gallbladder, Hysterectomy, Tonsillectomy Respiratory: No Currently Using CPAP: No Currently Using BIPAP: No Cardiac: Yes Hypertension 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 Genitourinary: No Gastrointestinal: Yes Esophageal Varices Musculoskeletal: No Arthritis Endocrine: No HEENT: Yes Cataract Hearing Impairment: Hard of Hearing, Bilateral Hearing Aide Cancer: No Lymphoma Did You Recieve Any Treatments: Yes What Type of Treatment Did You: Chemotherapy Psychosocial: No Integumentary: No Blood Disorders: No Family Medical History Cardiovascular disease 19 MOTHER Completed stroke 19 MOTHER FH: kidney cancer 19 FATHER Hypertension 19 MOTHER Severe allergy No Family History of: Shady's disease Alcoholism Alzheimer's disease Dementia Diabetes mellitus Drug abuse Myocardial infarction Seizure disorder Tuberculosis Physical Exam Vital Signs Vital Signs - First Documented Capillary Refill : Less Than 3 Seconds Height, Weight, BMI Height: 5'2.00" Weight: 142lbs. 2.0oz. 64.327355sn; 27.00 BMI Method:Stated General Appearance: No Apparent Distress, Cachetic, Thin Eyes: Bilateral Eye Normal Inspection, Bilateral Eye PERRL, Bilateral Eye EOMI HEENT: PERRL/EOMI, Pharynx Normal (dry oral mucosa) Neck: Normal Inspection Respiratory: Lungs Clear, Normal Breath Sounds, No Accessory Muscle Use, No Respiratory Distress Cardiovascular: Regular Rate, Rhythm, Normal Peripheral Pulses, Tachycardia (118 HR) Gastrointestinal: Non Tender, Soft Extremity: Normal Inspection, Normal Range of Motion Neurologic/Psychiatric: Alert, Oriented x3, No Motor/Sensory Deficits, Normal Mood/Affect, aerial photographer II-XII Norm as Tested Skin: Warm/Dry, Pallor (slight) Focused Exam Lactate Level 02/14/22 12:48: Lactic Acid Level 1.07 Lactic Acid Level Laboratory Tests Test 02/14/22 12:48 Lactic Acid Level 1.07 MMOL/L (0.50-2.00) Progress/Results/Core Measures Suspected Sepsis SIRS Temperature: Pulse: 115 Respiratory Rate: 17 Laboratory Tests 02/14/22 09:40: White Blood Count 17.0H Blood Pressure 119 /93 Mean: 102 02/14/22 12:48: Lactic Acid Level 1.07 Laboratory Tests 02/14/22 09:40: Creatinine 0.96, INR Comment 1.0, Platelet Count 266, Total Bilirubin 0.9 02/14/22 12:48: INR Comment 1.0 Results/Orders Lab Results Laboratory Tests Test 02/14/22 09:40 02/14/22 11:27 02/14/22 12:48 Range/Units White Blood Count 17.0 H 4.3-11.0 10^3/uL Red Blood Count 4.51 3.80-5.11 10^6/uL Hemoglobin 13.5 11.5-16.0 g/dL Hematocrit 40 35-52 % Mean Corpuscular Volume 90 80-99 fL Mean Corpuscular Hemoglobin 30 25-34 pg Mean Corpuscular Hemoglobin Concent 33 32-36 g/dL Red Cell Distribution Width 14.6 H 10.0-14.5 % Platelet Count 266 130-400 10^3/uL Mean Platelet Volume 12.5 H 9.0-12.2 fL Immature Granulocyte % (Auto) 1 % Neutrophils (%) (Auto) 39 L 42-75 % Lymphocytes (%) (Auto) 52 H 12-44 % Monocytes (%) (Auto) 7 0-12 % Eosinophils (%) (Auto) 1 0-10 % Basophils (%) (Auto) 1 0-10 % Neutrophils # (Auto) 6.5 1.8-7.8 10^3/uL Lymphocytes # (Auto) 8.9 H 1.0-4.0 10^3/uL Monocytes # (Auto) 1.2 H 0.0-1.0 10^3/uL Eosinophils # (Auto) 0.2 0.0-0.3 10^3/uL Basophils # (Auto) 0.1 0.0-0.1 10^3/uL Immature Granulocyte # (Auto) 0.1 0.0-0.1 10^3/uL Neutrophils % (Manual) 38 % Lymphocytes % (Manual) 54 % Monocytes % (Manual) 6 % Eosinophils % (Manual) 2 % Anisocytosis SLIGHT [place] Cells SLIGHT Elliptocytes SLIGHT Acanthocytes SLIGHT Prothrombin Time 13.8 14.0 12.2-14.7 SEC INR Comment 1.0 1.0 0.8-1.4 Activated Partial Thromboplast Time 35 40 H 24-35 SEC Sodium Level 140 135-145 MMOL/L Potassium Level 4.1 3.6-5.0 MMOL/L Chloride Level 106 98-107 MMOL/L Carbon Dioxide Level 16 L 21-32 MMOL/L Anion Gap 18 H 5-14 MMOL/L Blood Urea Nitrogen 18 7-18 MG/DL Creatinine 0.96 0.60-1.30 MG/DL Estimat Glomerular Filtration Rate 57 BUN/Creatinine Ratio 19 Glucose Level 155 H 70-105 MG/DL Calcium Level 9.8 8.5-10.1 MG/DL Corrected Calcium 10.0 8.5-10.1 MG/DL Magnesium Level 2.0 1.6-2.4 MG/DL Total Bilirubin 0.9 0.1-1.0 MG/DL Aspartate Amino Transf (AST/SGOT) 28 5-34 U/L Alanine Aminotransferase (ALT/SGPT) 15 0-55 U/L Alkaline Phosphatase 106 40-136 U/L Myoglobin 62.6 10.0-92.0 NG/ML Troponin I < 0.028 <0.028 NG/ML Total Protein 7.2 6.4-8.2 GM/DL Albumin 3.8 3.2-4.5 GM/DL Urine Color YELLOW Urine Clarity CLOUDY Urine pH 5.5 5-9 Urine Specific [place] 1.025 H 1.016-1.022 Urine Protein TRACE H NEGATIVE Urine Glucose (UA) NEGATIVE NEGATIVE Urine Ketones 1+ H NEGATIVE Urine Nitrite POSITIVE H NEGATIVE Urine Bilirubin NEGATIVE NEGATIVE Urine Urobilinogen 0.2 < = 1.0 MG/DL Urine Leukocyte Esterase 3+ H NEGATIVE Urine RBC (Auto) 2+ H NEGATIVE Urine RBC 5-10 H /HPF Urine WBC >100 H /HPF Urine Squamous Epithelial Cells 5-10 /HPF Urine Crystals NONE /LPF Urine Bacteria LARGE H /HPF Urine Casts NONE /LPF Urine Mucus NEGATIVE /LPF Urine Culture Indicated YES Lactic Acid Level 1.07 0.50-2.00 MMOL/L Micro Results Microbiology 02/14/22 Blood Culture - Preliminary, Resulted No growth 02/14/22 Urine Culture - Preliminary, Resulted Citrobacter amalonaticus My Orders Orders - ANTELMO HAMMER MD Ekg Tracing (02/14/22 09:36) Cbc With Automated Diff (02/14/22 09:44) Magnesium (02/14/22 09:44) Chest 1 View, Ap/Pa Only (02/14/22 09:44) Comprehensive Metabolic Panel (02/14/22 09:44) Myoglobin Serum (02/14/22 09:44) Protime With Inr (02/14/22 09:44) Partial Thromboplastin Time (02/14/22 09:44) O2 (02/14/22 09:44) Monitor-Rhythm Ecg Trace Only (02/14/22 09:44) Lipid Panel (02/15/22 06:00) Ed Iv/Invasive Line Start (02/14/22 09:44) Troponin I Nieves (02/14/22 09:44) Manual Differential (02/14/22 09:40) Ua Culture If Indicated (02/14/22 10:37) Urine Culture (02/14/22 11:27) Cefepime Injection (Maxipime Injection) (02/14/22 12:15) Blood Culture (02/14/22 12:09) Protime With Inr (02/14/22 12:09) Partial Thromboplastin Time (02/14/22 12:09) Ed Iv/Invasive Line Start (02/14/22 12:09) Ed Iv/Invasive Line Start (02/14/22 12:09) Vital Signs Adult Sepsis Patie Q15M (02/14/22 12:09) O2 (02/14/22 12:09) Remove Rings In Anticipation O (02/14/22 12:09) Lactic Acid Analyzer (02/14/22 12:09) Ns Iv 1000 Ml (Sodium Chloride 0.9%) (02/14/22 12:15) Vital Signs/I&O 02/14/22 02/14/22 09:35 09:35 Temp 35.7 Pulse 115 Resp 17 B/P (MAP) 119/93 (102) Pulse Ox 95 O2 Delivery Nasal Cannula Nasal Cannula O2 Flow Rate 2.00 2.00 Capillary Refill : Less Than 3 Seconds Blood Pressure Mean: 102 Progress Note : Time: 12:30 Progress Note Patient continues to be asymptommatic of her earlier complaints that prompted EMS call. She was found to have significant leukocytosis and UTI. this with her tachycardia and age, I believe is enough to warrant observation admission with IV abitbiotics. Family is here and at thie bedside and are agreeable they do state she has recently been on antibiotics - possibly two rounds and question why this keeps happening. I reassured them we would culture the urine and make sure she was on the correct abx for the bacteria making her sick, and for the appropriate course. ECG Initial ECG Impression Date: February 14, 2022 Initial ECG Impression Time: 09:39 Initial ECG Rate: 115 Initial ECG Rhythm: S.Tach Initial ECG Intervals FL interval 180 QRS 136 QTc 428 Left bundle branch block noted, EKG appears similar to previous from 2018. No signs of ST segment elevation MD. -Interpreted by me Departure Communication (Admissions) Time/Spoke to Admitting Phy: 12:[address] Lema Impression Primary Impression: Sepsis Qualified Codes: A41.9 - Sepsis, unspecified organism Additional Impression: UTI (urinary tract infection) Qualified Codes: N39.0 - Urinary tract infection, site not specified; R31.9 - Hematuria, unspecified Disposition: 09 ADMITTED INPATIENT Condition: Stable Admissions Decision to Admit Reason: Admit from ER (General) Decision to Admit/Date: February 14, 2022 Time/Decision to Admit Time: 12:10 Departure-Patient Inst. Referrals: JACOBY SCHWAB MD (PCP/Family) Primary Care Physician ANTELMO HAMMER MD February 14, 2022 09:44
[2022-02-14 09:50] LABS: BASOPHILS # (AUTO) 0.1 10^3/uL (0.0-0.1); BASOPHILS % (AUTO) 1 % (0-10); EOSINOPHILS # (AUTO) 0.2 10^3/uL (0.0-0.3); EOSINOPHILS % (AUTO) 1 % (0-10); HEMATOCRIT 40 % (35-52); HEMOGLOBIN 13.5 g/dL (11.5-16.0); LYMPHOCYTES # (AUTO) 8.9 10^3/uL (1.0-4.0); LYMPHOCYTES % (AUTO) 52 % (12-44); MEAN CORPUSCULAR HEMOGLOBIN 30 pg (25-34); MEAN CORPUSCULAR HGB CONC 33 g/dL (32-36); MEAN CORPUSCULAR VOLUME 90 fL (80-99); MEAN PLATELET VOLUME 12.5 fL (9.0-12.2); MONOCYTES # (AUTO) 1.2 10^3/uL (0.0-1.0); MONOCYTES % (AUTO) 7 % (0-12); NEUTROPHILS # (AUTO) 6.5 10^3/uL (1.8-7.8); NEUTROPHILS % (AUTO) 39 % (42-75); PLATELET COUNT 266 10^3/uL (130-400)
[2022-02-14 09:55] LABS: ALBUMIN 3.8 GM/DL (3.2-4.5); POTASSIUM 4.1 MMOL/L (3.6-5.0)
[2022-02-14 09:57] LABS: CALCIUM 9.8 MG/DL (8.5-10.1)
[2022-02-14 09:58] LABS: TOTAL PROTEIN 7.2 GM/DL (6.4-8.2)
[2022-02-14 10:00] LABS: BILIRUBIN,TOTAL 0.9 MG/DL (0.1-1.0)
[2022-02-14 10:01] LABS: CREATININE SERUM 0.96 MG/DL (0.60-1.30)
--- NOTE | 2022-02-14 10:12 | Diagnostic Imaging Report ---
INDICATION: Weakness and nausea. Time of Exam: 10:08 AM Correlation is made with prior chest from 08/29/2018. FINDING: The heart size is normal. The pulmonary vascularity is unremarkable. The lungs are clear. No infiltrate, effusion or pneumothorax is detected. IMPRESSION: No acute cardiopulmonary process is detected. Dictated by: Dictated on workstation # [id number]
[2022-02-14 10:41] LABS: ACANTHOCYTES SLIGHT; ANISOCYTOSIS SLIGHT; BURR CELLS SLIGHT; ELLIPT/OVALOCYTES SLIGHT; EOSINOPHILS % (MANUAL) 2 %; LYMPHOCYTES % (MANUAL) 54 %; MONOCYTES % (MANUAL) 6 %; NEUTROPHILS % (MANUAL) 38 %
[2022-02-14 11:07] LABS: PROTHROMBIN TIME PATIENT 13.8 SEC (12.2-14.7)
[2022-02-14 11:33] LABS: BILIRUBIN,URINE NEGATIVE (NEGATIVE); CLARITY,URINE CLOUDY; COLOR,URINE YELLOW; GLUCOSE, URINE (UA) NEGATIVE (NEGATIVE); KETONES,URINE 1+ (NEGATIVE); LEUKOCYTE ESTERASE ,URINE 3+ (NEGATIVE); NITRITE,URINE POSITIVE (NEGATIVE); PH,URINE 5.5 (5-9); PROTEIN,URINE TRACE (NEGATIVE)
[2022-02-14 11:43] LABS: BACTERIA,URINE LARGE /HPF; WBC,URINE >100 /HPF
[2022-02-14] MEDS ORDERED: CEFEPIME INJECTION 1,000 MG in NS (IVPB) 50 ML IV ONE (12:15)
[2022-02-14] MEDS ORDERED: NS IV 1000 ML 1,000 ML IV SCH (12:15)
[2022-02-14 14:12] VITALS: BP 129/80
[2022-02-14] MEDS ORDERED: ONDANSETRON 4 MG/2 ML (SDV) Z0FRAN IV PRN (14:15)
[2022-02-14] MEDS ORDERED: OMEP20CA18 PO (14:25)
[2022-02-14] MEDS ORDERED: LATA7.5D OP (14:25)
[2022-02-14] MEDS: PANTOPRAZOLE 40 MG (PROTONIX) TAB PO SCH (14:30)
[2022-02-14] MEDS: NS IV 1000 ML 1,000 ML IV SCH (14:31)
[2022-02-14] MEDS: LOSARTAN 25 MG (COZAAR) TAB PO SCH (14:38)
[2022-02-14 16:00] VITALS: BP 108/69
[2022-02-14 16:26] VITALS: BP 119/93
[2022-02-14] MEDS ORDERED: RT-ALBUTEROL SULF 2.5 MG/3 ML PRE-MIX VIAL INH PRN ×2 (18:00)
[2022-02-14 20:00] VITALS: BP 114/74
[2022-02-14] MEDS: CEFEPIME 1,000 MG/NS 50 ML IVPB IV SCH ×2 (20:47)
[2022-02-15] VITALS (7 sets, daily range): BP systolic 112–146; BP diastolic 71–85
[2022-02-15] MEDS: NS IV 1000 ML 1,000 ML IV SCH ×4 (01:09→23:57)
[2022-02-15] MEDS: CEFEPIME 1,000 MG/NS 50 ML IVPB IV SCH ×6 (04:23→20:11)
[2022-02-15 05:55] LABS: TRIGLYCERIDES 96 MG/DL (<150); VLDL CHOLESTEROL 19 MG/DL (5-40)
[2022-02-15 06:00] LABS: CHOLESTEROL 144 MG/DL (< 200)
[2022-02-15 06:01] LABS: HDL CHOLESTEROL 36 MG/DL (40-60)
[2022-02-15] MEDS ORDERED: VIT60OIN3 TP (09:05)
[2022-02-15] MEDS ORDERED: FLUT16SP22 NSEACH (09:05)
[2022-02-15] MEDS: PANTOPRAZOLE 40 MG (PROTONIX) TAB PO SCH (09:33)
[2022-02-15] MEDS: LOSARTAN 25 MG (COZAAR) TAB PO SCH (09:33)
[2022-02-15 09:42] LABS: HEMOGLOBIN 11.3 g/dL (11.5-16.0); MEAN PLATELET VOLUME 12.9 fL (9.0-12.2); WHITE BLOOD COUNT 11.7 10^3/uL (4.3-11.0)
[2022-02-15 09:55] LABS: POTASSIUM 4.5 MMOL/L (3.6-5.0)
[2022-02-15 09:56] LABS: CALCIUM 8.6 MG/DL (8.5-10.1)
[2022-02-15 10:01] LABS: CREATININE SERUM 0.78 MG/DL (0.60-1.30)
--- NOTE | 2022-02-15 10:12 | History & Physical-Hospitalist ---
History of Present Illness HPI/Chief Complaint Patient is an 89-year-old female with past medical history of non- Hodgkin's lymphoma, hypertension, recurrent UTIs who presented to the emergency room due to weakness and confusion. Her son is at bedside and helps relay the history she has not been feeling well for couple of days and yesterday was very weak and could not hardly get off the toilet. She was not alert and oriented like she normally is either when she did get up off the toilet she was quite sweaty and limp. EMS was summoned and they actually thought her EKG showed a STEMI but on arrival it was a known left bundle branch block. Instead she was found to have a urinary tract infection and meets sepsis criteria. She was admitted for further management. Today she reports feeling much better. Her son states she is at probably 50% of her baseline but was a under 10% yesterday. Source: patient Date Seen 02/15/22 Time Seen by a Provider: 09:30 Attending Physician Andrea Lee MD PCP Admitting Physician: Myrna Lema MD Attending Physician: Myrna Lema MD Referring Physician Date of Admission February 14, 2022 at 12:50 Home Medications & Allergies Home Medications Reviewed patient Home Medication Reconciliation performed by pharmacy medication reconciliations reliability technicians and/or nursing. Patients Allergies have been reviewed. Allergies Allergies Coded Allergies Penicillins (Verified Allergy, Unknown, 04/19/17) Sulfa (Sulfonamide Antibiotics) (Verified Allergy, Unknown, 04/19/17) clindamycin (Verified Allergy, Unknown, 04/19/17) Past Rzednwj-Arycde-Rqduys Hx Patient Social History Employed/Student: retired Tobacco Use?: No Use of E-Cig and/or Vaping dev: No Substance use?: No Alcohol Use?: No Pt feels they are or have been: No Immunizations Up To Date Date of Influenza Vaccine: Jul 23, 2018 First/Initial COVID19 Vaccinat: SPRING 2020 Second COVID19 Vaccination Victoriano: SPRING 2020 Tetanus Booster (TDap): Unknown Hepatitis A: No Hepatitis B: No PED Vaccines UTD: No Date of Pneumonia Vaccine: Jul 19, 2017 Seasonal Allergies Seasonal Allergies: No Current Status status: No status: No Advance Directives: Yes Advance Directive Location: Copy placed in chart Communicates: Verbally Primary Language: Tunisian Preferred Spoken Language: Tunisian Is interpretation needed?: No Sensory deficits: Hearing impairment Implanted or Applied Medical D: None Past Medical History Surgeries: Appendectomy, Gallbladder, Hysterectomy, Tonsillectomy Currently Using CPAP: No Currently Using BIPAP: No Hypertension 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 Esophageal Varices Arthritis Cataract Hearing Impairment: Hard of Hearing, Bilateral Hearing Aide Lymphoma Did You Recieve Any Treatments: Yes What Type of Treatment Did You: Chemotherapy Blood Disorders: No Family Medical History Reviewed Nursing Family Hx Cardiovascular disease 19 MOTHER Completed stroke 19 MOTHER FH: kidney cancer 19 FATHER Hypertension 19 MOTHER Severe allergy No Family History of: Shady's disease Alcoholism Alzheimer's disease Dementia Diabetes mellitus Drug abuse Myocardial infarction Seizure disorder Tuberculosis Review of Systems Constitutional: diaphoresis; No fever; malaise, weakness EENTM: no symptoms reported Respiratory: dyspnea on exertion Cardiovascular: No chest pain, No edema Gastrointestinal: No abdominal pain, No nausea, No vomiting Genitourinary: see HPI Musculoskeletal: no symptoms reported Skin: no symptoms reported Psychiatric/Neurological: No Symptoms Reported Physical Exam Physical Exam Vital Signs Vital Signs - First Documented 02/14/22 16:26 FiO2 28 Capillary Refill : Less Than 3 Seconds Height, Weight, BMI Height: 5'2.00" Weight: 142lbs. 2.0oz. 64.546296tc; 28.80 BMI Method:Stated General Appearance: No Apparent Distress, Chronically ill, Thin HEENT: PERRL/EOMI, Moist Mucous Membranes; No Scleral Icterus (L), No Scleral Icterus (R) Neck: Normal Inspection, Supple Respiratory: Lungs Clear, No Accessory Muscle Use, No Respiratory Distress Cardiovascular: Regular Rate, Rhythm, No Murmur Gastrointestinal: Normal Bowel Sounds, Non Tender, Soft; No Distended, No Guarding, No Rebound Extremity: Normal Capillary Refill, No Calf Tenderness, No Pedal Edema Neurologic/Psychiatric: Alert, Oriented x3 (hard of hearing but does answer most questions appropriately), Normal Mood/Affect Results Results/Procedures Labs Laboratory Tests 02/14/22 09:40 02/15/22 05:15 Patient resulted labs reviewed. Imaging: Reviewed Imaging Report Imaging [facility], [place] NAME: EDDIESALTY REC#: [id number] PT STATUS: ADM Ramon : 1930 PHYSICIAN: ANTELMO HAMMER MD ADMIT DATE: 02/14/22 Signed Date of Exam:02/14/22 CHEST 1 VIEW, AP/PA ONLY INDICATION: Weakness and nausea. Time of Exam: 10:08 AM Correlation is made with prior chest from 08/29/2018. FINDING: The heart size is normal. The pulmonary vascularity is unremarkable. The lungs are clear. No infiltrate, effusion or pneumothorax is detected. IMPRESSION: No acute cardiopulmonary process is detected. Dictated by: Dictated on workstation # [id number] Dict: 02/14/22 1008 Trans: 02/14/22 1536 [id number] Interpreted by: JAZMYN QUEZADA MD Electronically signed by: JAZMYN QUEZADA MD 02/14/22 1536 Assessment/Plan Admission Diagnosis Sepsis Admission Status: Inpatient Order (span 2 midnights) Reason for Inpatient Admission: see below Assessment and Plan Sepsis UTI Will continue IV abx Await cultures History of recurrent UTIs- may benefit from daily ppx abx Has previously grown nearly pansensitive e coli and proteus this year so will deescalate quickly with c/s results NHL Was to see Dr Cadet on - follow up MRI appt Discussed with Dr Cadet and she will see her tomorrow HTN BP well controlled on no meds Trend DVT ppx: Lovenox Diagnosis/Problems Diagnosis/Problems (1) Debility Status: Chronic (2) Sepsis Status: Acute Qualifiers: Sepsis type: sepsis due to unspecified organism Sepsis acute organ dysfunction status: without acute organ dysfunction Qualified Codes: A41.9 - Sepsis, unspecified organism (3) HTN (hypertension) Status: Chronic Qualifiers: Hypertension type: primary hypertension Qualified Codes: I10 - Essential (primary) hypertension (4) Non-Hodgkin lymphoma Status: Chronic Qualifiers: Non-Hodgkin lymphoma type: unspecified type (5) UTI (urinary tract infection) Status: Acute Qualifiers: Urinary tract infection type: acute cystitis Hematuria presence: with hematuria Qualified Codes: N30.01 - Acute cystitis with hematuria MYRNA LEMA MD February 15, 2022 10:12
--- NOTE | 2022-02-15 14:03 | Physical Therapy Evaluation ---
PT Evaluation-General Medical Diagnosis Admission Date February 14, 2022 at 12:50 Medical Diagnosis: sepsis/UTI Onset Date: February 14, 2022 Therapy Diagnosis Therapy Diagnosis: generalized weakness/debility Height/Weight Height (Feet): 5 Height (Inches): 2.00 Weight (Pounds): 142 Weight (Ounces): 2.0 Precautions Precautions/Isolations: Fall Prevention, Standard Precautions Referral Physician: Maisha Reason for Referral: Evaluation/Treatment Medical History Pertinent Medical History: HTN Additional Medical History non-Hodgkin's lymphoma Current History EMS from home due to nausea and weakness Reviewed History: Yes Social History Home: Single Level Current Living Status: Children Prior Prior Level of Function SCALE: Activities may be completed with or without assistive devices. 0-Jaklfoepdo-yokesei completes the activity by him/herself with no assistance from a helper. 5-Set-up or Clean-up Assistance-helper sets up or cleans up; patient completes activity. [place] assists only prior to or following the activity. 4-Supervision or Touching Assistance-helper provides verbal cues and/or touching/steadying and/or contact guard assistance as patient completes activity. Assistance may be provided throughout the activity or intermittently. 3-Partial/Moderate Assistance-helper does LESS THAN HALF the effort. [place] lifts, holds or supports trunk or limbs, but provides less than half the effort. 2-Substantial/Maximal Assistance-helper does MORE THAN HALF the effort. [place] lifts or holds trunk or limbs and provides more than half the effort. 8-Trxenznaz-aaurnj does ALL the effort. Patient does none of the effort to complete the activity. Or, the assistance of 2 or more helpers is required for the patient to complete the activity. If activity was not attempted, code reason: 7-Patient Refused. 9-Not Applicable-not attempted and the patient did not perform the activity before the current illness, exacerbation or injury. 10-Not Attempted due to Environmental Limitations-(lack of equipment, weather restraints, etc.). 88-Not Attempted due to Medical Conditions or Safety Concerns. Bed Mobility: 2 Transfers (B,C,W/C): 2 Gait: 2 Stairs: 9 Indoor Mobility (Ambulation): Needed Some Help Stairs: Not [place] Prior Devices Use: Walker PT Evaluation-Current Subjective Patient very [place]. Son present. Son reports he takes care of her. Objective Patient Orientation: Confused Attachments: Oxygen, IV ROM/Strength ROM Lower Extremities bilateral LE WFL Strength Lower Extremities 3-/5 grossly bilateral LE Integumentary/Posture Integumentary refer to nursing notes Bowel Incontinence: Yes Bladder Incontinence: Yes Posture WFL Neuromuscular (Tone, Coordination, Reflexes) severe retropulsion in sit and stand with PT correct and patient resisting all mobility Sensory Vision: Functional Hearing: Hearing Aid/Aides (1) Transfers Roll Left to Right (QC): 1 Sit to Lying (QC): 1 Lying to Sitting/Side of Bed(Q: 1 Sit to Stand (QC): 1 Chair/Hmy-il-Dmrnq Xfer(QC): 1 Gait Does the Patient Walk?: No and Walking Goal IS indicated Walk 10 feet (QC): 88 Balance Sitting Static: Poor Sitting Dynamic: Poor Standing Static: Poor Standing Dynamic: Poor Assessment/Needs 89 y.o. female, will be seen by skilled PT to address functional strength and mobility to improve current LOF. Per son, patient requires dependent assist with all mobility and ADL's PLOF. Rehab Potential: Guarded PT Sales Service Promoter Goals Sales Service Promoter Goals PT Sales Service Promoter Goals Time Frame: Feb 26, 2022 Roll Left & Right (QC): 2 Sit to Lying (QC): 2 Lying-Sitting on Side/Bed(QC): 2 Sit to Stand (QC): 2 Chair/Jvv-ko-Ruoqx Xfer(QC): 2 Toilet Transfer (QC): 2 Walk 10 feet (QC): 2 PT Plan Problem List Problem List: Activity Tolerance, Functional Strength, Safety, Balance, Gait, Transfer, Bed Mobility Treatment/Plan Treatment Plan: Continue Plan of Care Treatment Plan: Bed Mobility, Education, Functional Activity La, Functional Strength, Gait, Safety, Therapeutic Exercise, Transfers Treatment Duration: Feb 19, 2022 Frequency: 6 times per week Estimated Hrs Per Day: .25 hour per day Time/GCodes Time In: 1331 Time Out: 1346 Total Billed Treatment Time: 15 Total Billed Treatment 1 visit EVMod 15 min KENN COY PT February 15, 2022 14:03
--- NOTE | 2022-02-15 14:05 | Occupational Therapy Eval ---
OT Evaluation-General/PLF Medical Diagnosis Admission Date February 14, 2022 at 12:50 Medical Diagnosis: sepsis with UTI Onset Date: February 14, 2022 Therapy Diagnosis Therapy Diagnosis: decreased ADL status, weakness Height/Weight Height (Feet): 5 Height (Inches): 2.00 Weight (Pounds): 142 Weight (Ounces): 2.0 Precautions Precautions/Isolations: Fall Prevention, Standard Precautions Weight Bear Status Weight Bearing Restriction: Weight Bearing/Tolerated Referral Physician: Pita Referral Reason: Evaluation/Treatment Medical History Pertinent Medical History: Arthritis, HTN Additional Medical History non-Hodgkin's lymphoma, HTN, recurrent UTIs, arthritis, esophageal varices. Current History EMS from home with weakness and nausea Social History Home: Single Level Current Living Status: Other Family Entry Into Home: Stairs With Railing ADL-Prior Level of Function SCALE: Activities may be completed with or without assistive devices. 9-Igkppcdbei-hhursvq completes the activity by him/herself with no assistance from a helper. 5-Set-up or Clean-up Assistance-helper sets up or cleans up; patient completes activity. [place] assists only prior to or following the activity. 4-Supervision or Touching Assistance-helper provides verbal cues and/or touching /steadying and/or contact guard assistance as patient completes activity. Assistance may be provided throughout the activity or intermittently. 3-Partial/Moderate Assistance-helper does LESS THAN HALF the effort. [place] lifts, holds or supports trunk or limbs, but provides less than half the effort. 2-Substantial/Maximal Assistance-helper does MORE THAN HALF the effort. [place] lifts or holds trunk or limbs and provides more than half the effort. 9-Htjxssyoh-espvne does ALL the effort. Patient does none of the effort to complete the activity. Or, the assistance of 2 or more helpers is required for the patient to complete the activity. If activity was not attempted, code reason: 7-Patient Refused. 9-Not Applicable-not attempted and the patient did not perform the activity before the current illness, exacerbation or injury. 10-Not Attempted due to Environmental Limitations-(lack of equipment, weather restraints, etc.). 88-Not Attempted due to Medical Conditions or Safety Concerns. ADL PLOF Comments Pt reports requiring assistance with all ADLs at PLOF, assistance with mobility. She uses a walker for transfers and a w/c, requiring assistance with mobility/transfers. Pt reports requiring assistance with washing her hair, but able to wash all other parts seated. Accuracy of information unknown as family member indicates pt retropulsive at baseline. She has a walk in shower with [place]. Self Care: Needed Some Help Functional Cognition: Independent DME/Equipment: Bath Chair, Shower DME/Equipment Comments w/c, walker, [place] Drive Self: No OT Current Status Subjective Pt in bed, family member present. Pt c/o nausea/vomiting once up in recliner, assistance back to bed and symptoms resolved. Cool cloth applied to forehead. Mental Status/Objective Patient Orientation: Person, Situation Attachments: IV, Oxygen (1L NC) Current Hearing Aids: Yes Upper Extremity ROM WFL BUEs Upper Extremity Strength grossly 3-/5 BUEs. ADL-Treatment Eating (QC): 5 (set up with containers and cutting food.) Lower Body Dressing (QC): 1 (Pt requires 2 person assist in standing for clothing management.) On/Off Footwear (QC): 1 Toileting Hygiene (QC): 1 (total assist with hygiene and clothing management.) Other Treatments Pt in bed, agreeable to OT Tx. Pt transferred supine to sit EOB, then SPT to recliner. Pt c/o nausea with vomiting, cool cloth placed on her forehead. Pt assisted back to bed for comfort. Pt required total assist with all mobility. Post tx, pt in bed, call light in reach and all needs met. Education OT Patient Education: Correct positioning, Energy conservation, Modified ADL techniques, Progress toward Goal/Update tx plan, Purpose of tx/functional activities, Rehab process Teaching Recipient: Patient Teaching Methods: Discussion Response to Teaching: Verbalize Understanding OT Longterm Goals Mannequin Maker Goals Time Frame: Feb 25, 2022 Eating (QC): 5 Oral Hygiene (QC): 5 Upper Body Dressing (QC): 3 Additional Goals: 1-Demonstrate ADL Tasks, 2-Verbalize Understanding, 3- ImproveStrength/La 1=Demonstrate adherence to instructed precautions during ADL tasks. 2=Patient will verbalize/demonstrate understanding of assistive devices/modifications for ADL. 3=Patient will improve strength/tolerance for activity to enable patient to perform ADL's. OT Education/Plan Problem List/Assessment Assessment: Decreased Activ Tolerance, Decreased UE Strength, Dependent Tra nsfers, Impaired Bed Mobility, Impaired Funct Balance, Impaired I ADL's, Impaired Self-Care Skills Discharge Recommendations Plan/Recommendations: Continue POC Treatment Plan/Plan of Care Patient would benefit from OT for education, treatment and training to promote independence in ADL's, mobility, safety and/or upper extremity function for ADL's. Plan of Care: ADL Retraining, Functional Mobility, UE Funct Exercise/Act Treatment Duration: Feb 25, 2022 Frequency: 3 times per week (3-5 times per week) Time/GCodes Start Time: 13:25 Stop Time: 13:45 Total Time Billed (hr/min): 20 Billed Treatment Time 1, IGOR THAKKAR OT February 15, 2022 14:05
[2022-02-15] MEDS ORDERED: LATANOPROST 0.005% (XALATAN) OPHTH SOLN 2.5 ML OP SCH (21:00)
[2022-02-16 04:24] VITALS: BP 124/79
[2022-02-16] MEDS: CEFEPIME 1,000 MG/NS 50 ML IVPB IV SCH ×2 (04:26)
[2022-02-16 05:31] LABS: HEMATOCRIT 34 % (35-52); HEMOGLOBIN 11.1 g/dL (11.5-16.0); MEAN CORPUSCULAR HEMOGLOBIN 29 pg (25-34); MEAN CORPUSCULAR HGB CONC 32 g/dL (32-36); MEAN CORPUSCULAR VOLUME 90 fL (80-99); MEAN PLATELET VOLUME 12.3 fL (9.0-12.2); PLATELET COUNT 183 10^3/uL (130-400)
[2022-02-16 05:39] LABS: POTASSIUM 3.7 MMOL/L (3.6-5.0)
[2022-02-16 05:40] LABS: CALCIUM 8.4 MG/DL (8.5-10.1)
[2022-02-16 05:44] LABS: CREATININE SERUM 0.71 MG/DL (0.60-1.30)
[2022-02-16 07:00] VITALS: BP 82/64
[2022-02-16] MEDS ORDERED: NS IV 1000 ML 1,000 ML IV ONE (07:00)
--- NOTE | 2022-02-16 07:15 | Occ Therapy Progress Note ---
Therapy Progress Note Due to change in medical status, OT services is discharged. New orders will be needed. MARGOT HUTCHINS Feb 16, 2022 07:15
[2022-02-16 07:20] LABS: ABG BASE EXCESS -12.5 MMOL/L (-2.5-2.5); ABG OXYGEN SATURATION 90 % (94-100); ABG PCO2 26 MMHG (35-45); ABG PO2 60 MMHG (79-93); ABG TCO2 13.4 MMOL/L (21.0-31.0)
[2022-02-16 07:21] LABS: ALLENS TEST YES-POS; INSPIRED O2 5; PATIENT TEMP 36.8; VENTILATOR NO
[2022-02-16 07:22] VITALS: BP 87/40
[2022-02-16 07:22] LABS: ABG PH 7.31 (7.37-7.43)
[2022-02-16 07:38] VITALS: BP 82/64
--- NOTE | 2022-02-16 08:31 | Physical Therapy Progress Note ---
Therapy Progress Note Patient was transferred to ICU. Will need new orders to continue with physical therapy when appropriate and patient is able to participate in skilled physical therapy. TRUDY SANCHEZ PT Feb 16, 2022 08:31
[2022-02-16] MEDS ORDERED: PANTOPRAZOLE 20 MG TABLET (PROTONIX) PO SCH (09:00)
[2022-02-16] MEDS ORDERED: FLUTICASONE NASAL SPRAY (FLONASE) 16 GM BTL NS SCH (09:00)
== END 2022-02-16 09:47 | disposition expired ==
LOC: EDUNIT# 09:34 → ER 09:36 → 4TH 12:50 → ICU 02-16 07:05
PROVIDERS: ADMIT Family Medicine; ATTEND Family Medicine
DX: A41.9 Sepsis, unspecified organism (principal); N39.0 Urinary tract infection, site not specified; R53.1 Weakness; I10 Essential (primary) hypertension; C85.90 Non-Hodgkin lymphoma, unspecified, unspecified site
CPT/HCPCS: 71045; 80048 ×2; 80053; 80061; 81000; 82805; 82947; 83605; 83735; 83874; 84484; 85007; 85027 ×3; 85610; 85730; 87040; 87077; 87088; 87186; 93005 ×2; 93041; 94660; 94760; 97162; 97166; 99284; G0378; 36415; 96361; 96366; 96376